=== PATIENT | female | born 1980 | race Caucasian/White ===

== ENCOUNTER 2016-08-17 12:19 | Emergency (ER) | payer MEDICAID ==
[~2016-08-17] VITALS: Ht 152.4 cm; Wt 52.0 kg
[~2016-08-17 12:19] MED LIST: ALPR0.5T3 PO; BUPR150CR PO; LAMO150 PO; LURA80 PO; TEMA30CA PO; ZOFR4TAB3 SL
[2016-08-17 12:27] VITALS: BP 145/89; PULSE 154; RESP 18; TEMP 99.9; O2SAT 97
[2016-08-17] MEDS ORDERED: ONDANSETRON HCL 4 MG/2 ML VIAL IVP ONE (13:00)
[2016-08-17] MEDS ORDERED: LORazepam 2 MG/ML VIAL IV PUSH ONE (13:00)
[2016-08-17] MEDS ORDERED: SODIUM CHLOR 0.9% 1000 ML INJ 1,000 ML IV ONE ×2 (13:00→14:30)
--- NOTE | 2016-08-17 13:09 | PD ---
HPI Chief Complaint: Abdominal Pain Time Seen by Provider: 12:30 Travel History International Travel<30 days: No Contact w/Intl Traveler<30days: No Traveled to known affect area: No History of Present Illness HPI The patient was seen and examined in the presence of the nurse. At no point in time was I in the room without the nurse present. This patient complains of lower abdominal pain. Duration 2 days. Symptoms are severe. Apparently right lower quadrant pain but also some on the left to a lesser degree. Occasionally she has vaginal discharge but nothing significant today. Denies fever or nausea or vomiting. She has irritable bowel syndrome and even understand what dose syndrome. She was feeling constipated and took an enema and then has had multiple bowel movements since. No abdominal surgeries. She is very tachycardic between 150- 170. She is extremely anxious. No alleviating factors , denies withdrawal of benzodiazepine which she takes 4-5 times daily PFSH Past Medical History Arthritis: Yes Asthma: Yes Bipolar Disorder: Yes Anxiety: Yes Depression: Yes Cancer: No Cardiovascular Problems: Yes (htn , states hx of tachacardia) Diabetes: No Diminished Hearing: No Endocrine: No Gastrointestinal Disorders: Yes (GASTROPARESIS) GERD: Yes (IBS) Genitourinary: No Headaches: Yes Hypertension: Yes (Orthostatic Hypertension per pt. recent HTN states takes no meds) Implanted Vascular Access Dvce: No Musculoskeletal: Yes Neurologic: Yes (GEOVANNI-DANLOS SYNDROME) Psychiatric: Yes Reproductive: No Respiratory: Yes Integumentary: Yes (CONNECTIVE TISSUE DISORDER) Migraines: Yes Seizures: Yes Tetanus Vaccination: > 5 Years Influenza Vaccination: No ?: Not LMP: 1 week sgo : 0 Para: 0 Miscarriage: 0 : 0 Past Surgical History Oral Surgery: Yes Other Surgery: Yes (SEE ED REPORT/MEDICAL RECORDS) Social History Alcohol Use: Yes (occas. wine) Tobacco Use: No Substance Use: No (states never) Allergies-Medications (Allergen,Severity, Reaction): Coded Allergies: Haldol (Verified Allergy, Severe, SPASMS, 08/17/16) Tramadol (Verified Allergy, Severe, HIVES, 08/17/16) Contrast Media (Verified Allergy, Mild, NAUSEA, 08/17/16) Ketamine (Verified Adverse Reaction, Mild, ANXIETY, 08/17/16) Reported Meds & Prescriptions Reported Meds & Active Scripts Active Zofran Odt (Ondansetron Odt) 4 Mg Tab 4 Mg SL Q6HR PRN Reported Temazepam 30 Mg Cap 30 Mg PO HS PRN Latuda (Lurasidone) 80 Mg Tab 100 Mg PO HS Lamictal (Lamotrigine) 150 Mg Tab 150 Mg PO BID Wellbutrin SR 12 HR (Bupropion HCl) 150 Mg Tab 300 Mg PO DAILY Alprazolam 0.5 Mg Tab 1 Mg PO QID PRN Review of Systems General / Constitutional: No: Fever Eyes: No: Visual changes HENT: No: Headaches Cardiovascular: Positive: Tachycardia, No: Chest Pain or Discomfort Respiratory: No: Shortness of Breath Gastrointestinal: Positive: Nausea, Abdominal Pain (this), Constipation Genitourinary: No: Dysuria Musculoskeletal: No: Pain Skin: No Rash Neurologic: No: Weakness Psychiatric: Positive: Anxiety, No: Depression Endocrine: No: Polydipsia Hematologic/Lymphatic: No: Easy Bruising Physical Exam Narrative GENERAL: Well-nourished, well-developed patient with abdominal pain and anxiety and tachycardia SKIN: Warm and dry. HEAD: Atraumatic. Normocephalic. EYES: Pupils equal and round. No scleral icterus. No injection or drainage. ENT: No nasal bleeding or discharge. Mucous membranes pink and moist. NECK: Trachea midline. No JVD. CARDIOVASCULAR: Regular rate and rhythm. No murmur appreciated. Tachycardic but regular RESPIRATORY: No accessory muscle use. Clear to auscultation. Breath sounds equal bilaterally. GASTROINTESTINAL: Abdomen soft, bilateral lower quadrant tenderness, nondistended. Hepatic and splenic margins not palpable. No rebound or guarding. MUSCULOSKELETAL: No obvious deformities. No clubbing. No cyanosis. No edema. NEUROLOGICAL: Awake and alert. No obvious cranial nerve deficits. Motor grossly within normal limits. Normal speech. PSYCHIATRIC: Extremely anxious mood and affect; insight and judgment normal. Pelvic: No cervical motion tenderness. No adnexal mass. Data Data Last Documented VS Vital Signs Date Time Temp Pulse Resp B/P Pulse Ox O2 Delivery O2 Flow Rate FiO2 08/17/16 14:25 130 16 109/77 97 Room Air 08/17/16 12:27 99.9 Orders Ondansetron Inj (Zofran Inj) (08/17/16 13:00) Sodium Chlor 0.9% 1000 Ml Inj (Ns 1000 M (08/17/16 13:00) Lorazepam Inj (Ativan Inj) (08/17/16 13:00) Complete Blood Count With Diff (08/17/16 12:52) Basic Metabolic Panel (Bmp) (08/17/16 12:52) Urinalysis - C+S If Indicated (08/17/16 12:52) Ed Urine Pregnancytest Poc (08/17/16 12:52) Electrocardiogram (08/17/16 ) Luggage Liner / Telemetry TIN.Q8H (08/17/16 12:52) Ct Abd/Pel W/O Iv Contrast (08/17/16 ) Urine Culture (08/17/16 13:10) Sodium Chlor 0.9% 1000 Ml Inj (Ns 1000 M (08/17/16 14:30) Labs Laboratory Tests Test 08/17/16 08/17/16 12:50 13:10 White Blood Count 3.2 TH/MM3 Red Blood Count 4.16 MIL/MM3 Hemoglobin 13.3 GM/DL Hematocrit 37.8 % Mean Corpuscular Volume 90.7 FL Mean Corpuscular Hemoglobin 32.0 PG Mean Corpuscular Hemoglobin 35.2 % Concent Red Cell Distribution Width 11.2 % Platelet Count 195 TH/MM3 Mean Platelet Volume 7.9 FL Neutrophils (%) (Auto) 91.7 % Lymphocytes (%) (Auto) 7.4 % Monocytes (%) (Auto) 0.7 % Eosinophils (%) (Auto) 0.1 % Basophils (%) (Auto) 0.1 % Neutrophils # (Auto) 3.0 TH/MM3 Lymphocytes # (Auto) 0.2 TH/MM3 Monocytes # (Auto) 0.0 TH/MM3 Eosinophils # (Auto) 0.0 TH/MM3 Basophils # (Auto) 0.0 TH/MM3 CBC Comment DIFF FINAL Differential Comment Sodium Level 137 MEQ/L Potassium Level 3.2 MEQ/L Chloride Level 103 MEQ/L Carbon Dioxide Level 22.0 MEQ/L Anion Gap 12 MEQ/L Blood Urea Nitrogen 9 MG/DL Creatinine 1.00 MG/DL Estimat Glomerular Filtration 63 ML/MIN Rate Random Glucose 124 MG/DL Calcium Level 8.8 MG/DL Urine Collection Type CLEAN CATCH Urine Color YELLOW Urine Turbidity SLIGHT Urine pH 6.0 Urine Specific [place] 1.021 Urine Protein TRACE mg/dL Urine Glucose (UA) NEG mg/dL Urine Ketones 80 OR GREATER mg/dL Urine Occult Blood MOD Urine Nitrite NEG Urine Bilirubin NEG Urine Leukocyte Esterase SMALL Urine RBC 10-14 /hpf Urine WBC 9-14 /hpf Urine Squamous Epithelial > 8 /hpf Cells Urine Bacteria MANY /hpf Microscopic Urinalysis Comment CULTURE INDICATED Urine Collection Time 13:10 [facility] Medical Decision Making Medical Screen Exam Complete: Yes Emergency Medical Condition: Yes Medical Record Reviewed: Yes Differential Diagnosis Ectopic , appendicitis, irritable bowel syndrome Narrative Course I have reviewed the patient's electronic medical record. Patient has had heart rates into the 130s before here but usually they're normal She does report history of be liters and low-dose as well as POTS syndrome which causes her frequent tachycardia that resolves and hours without treatment. Heart rate was initially running 170 is now at 1:30 I reviewed her EKG which shows sinus tachycardia at 1:30 Extended cardiac monitoring reveals sinus tachycardia without ectopy IV placed CBC is normal Metabolic profile shows hypokalemia with normal renal function Urinalysis shows a few contaminants will be cultured Urine is negative CT of abdomen and pelvis does not show anything emergent I gave her 1 L normal saline IV I gave her IV Zofran and IV Ativan On recheck she looks much better. Heart rate is come down from 170 to 130 She notes that she'll be tachycardic for a few hours and then will be back to normal This is very common finding for her and she does not want further evaluation for it. She would like to go home. She does look clinically better and we did not find anything emergent. I wrote her potassium replacement dose Advised her to return if she worsens Could be gastroparesis or irritable bowel syndrome causing abdominal pain which she has both chronically. She has sinus tachycardia but no other arrhythmia Diagnosis Primary Impression: Abdominal pain Qualified Code: R10.30 - Lower abdominal pain Additional Impressions: Tachycardia with greater than 160 beats per minute Hypokalemia Additional Instructions: The patient was advised to follow up with their physician and return if they worsen. Med/Other Pt SpecificInfo: Prescription(s) given Disposition: 01 DISCHARGE HOME Condition: Stable Ta Meadows MD Aug 17, 2016 13:09
[2016-08-17 13:23] LABS: BASOPHIL % 0.1 % (0.0-2.0); EOSINOPHIL % 0.1 % (0.0-4.0); HEMATOCRIT 37.8 % (35.0-46.0); LYMPH % 7.4 % (9.0-44.0); LYMPHOCYTE # 0.2 TH/MM3 (1.0-4.8); MEAN CELL VOLUME 90.7 FL (80.0-100.0); MEAN CORPUSCULAR HGB CONC 35.2 % (32.0-36.0); MONO % 0.7 % (0.0-8.0); NEUT % 91.7 % (16.0-70.0); PLATELET COUNT 195 TH/MM3 (150-450); RED BLOOD COUNT 4.16 MIL/MM3 (4.00-5.30); RED CELL DISTRIBUTION WIDTH 11.2 % (11.6-17.2); WHITE BLOOD COUNT 3.2 TH/MM3 (4.0-11.0)
[2016-08-17 13:23] LABS: GLUCOSE,URINE NEG (NEG); NITRITE,URINE NEG (NEG)
[2016-08-17 13:25] LABS: HEMO FLAGS DIFF FINAL
[2016-08-17 13:28] LABS: BLOOD, URINE MOD (NEG); KETONE, URINE 80 OR GREATER mg/dL (NEG)
[2016-08-17 13:29] LABS: METHOD OF COLLECTION CLEAN CATCH; URINE COLOR YELLOW (YELLW/STRAW)
[2016-08-17 13:30] LABS: BACTERIA, URINE MANY /hpf; SQUAMOUS EPITHELIAL CELL URINE > 8 /hpf (0-5)
[2016-08-17 13:30] LABS: POTASSIUM 3.2 MEQ/L (3.5-5.1)
[2016-08-17 13:31] LABS: COMMENT (UR) CULTURE INDICATED; CULTURE IF INDICATED CULTURE INDICATED
--- NOTE | 2016-08-17 14:08 | RADHPO ---
EXAM DATE/TIME: 08/17/2016 13:39 [facility] COMPARISON: CT CERVICAL SPINE W/O CONTRAST, June 29, 2016, 18:37. INDICATIONS : Right lower quadrant pain, nausea and vomiting x 2 days. ORAL CONTRAST: No oral contrast ingested. RADIATION DOSE: 5.36 CTDIvol (mGy) MEDICAL HISTORY : Irritiable bowel syndrome. Hypertension. Asthma. SURGICAL HISTORY : None. ENCOUNTER: Initial ACUITY: 2 days PAIN SCALE: 7/10 LOCATION: Right lower quadrant TECHNIQUE: Volumetric scanning of the abdomen and pelvis was performed. Using automated exposure control and ad justment of the mA and/or kV according to patient size, radiation dose was kept as low as reasonably achievable to obtain optimal diagnostic quality images. FINDINGS: The limited portion of the lung base visualized is clear. The appearance of the liver, spleen, pancreas, adrenal glands and kidneys is within normal limits. The abdominal aorta is normal in caliber. There is no retroperitoneal lymphadenopathy. No free intraperitoneal air is seen. No free fluid is identified. The visualized loops of small and l arge bowel are unremarkable by noncontrast CT imaging. No inflammatory changes are seen in the right lower quadrant. There some minimal free fluid within the pelvis. Note is made of an IUD within the uterine cavity. No iliac or inguinal adenopathy is present. The visualized bony structures demonstrate degenerative changes right are otherwise intact. CONCLUSION: 1. Negative CT scan of the abdomen and pelvis. 2. The appendix is not definitively visualized however, no inflammatory changes are seen within the r ight lower quadrant. If symptoms persist, repeat examination with IV and oral contrast could be perfo rmed. Connor Loving MD on August 17, 2016 at 13:54 Board Certified Radiologist. This report was verified electronically.
[2016-08-17 14:25] VITALS: BP 109/77; PULSE 130; RESP 16; O2SAT 97
[2016-08-17] MEDS ORDERED: POTA1TAB4 PO (15:18)
[2016-08-17] MEDS ORDERED: ZOFR4TAB3 SL (15:18)
--- NOTE | 2016-08-18 15:31 | EKG ---
Date Performed: 08/17/2016 Time Performed: 13:08:42 PTAGE: 36 years EKG: Sinus tachycardia Short HI interval Extensive ST-T changes are abnormal Compared to previou s tracing, HR is faster, and the ST-T changes are more prominent. Abnormal ECG PREVIOUS TRACING : 03/29/2014 08.50 DOCTOR: Bryon Leos Interpretating Date/Time 08/18/2016 15:29:32
== END 2016-08-17 15:45 | disposition home or self-care (01) ==
LOC: PHED 12:19
DX: R10.30 Lower abdominal pain, unspecified (principal); E87.6 Hypokalemia; R00.0 Tachycardia, unspecified; R82.71 Bacteriuria; K58.9 Irritable bowel syndrome, unspecified
CPT/HCPCS: 74176; 80048; 81001; 84703; 85025; 87086; 93005; 96361; 96374; 96375; 99284; J2060; J2405; J7030

== ENCOUNTER 2016-08-20 18:33 | Inpatient (IN) | payer MEDICAID ==
[~2016-08-20] VITALS: Ht 152.4 cm; Wt 71.1 kg
[~2016-08-20 18:33] MED LIST changes: +POTA1TAB4 PO
[2016-08-20 18:45] VITALS: BP 153/107; PULSE 106; RESP 18; TEMP 98.4; O2SAT 99
[2016-08-20] MEDS ORDERED: SODIUM CHLOR 0.9% 1000 ML INJ 1,000 ML IV SCH (18:50)
--- NOTE | 2016-08-20 18:53 | PD ---
HPI Chief Complaint: GI Complaint Time Seen by Provider: 18:39 Travel History International Travel<30 days: No Contact w/Intl Traveler<30days: No Traveled to known affect area: No History of Present Illness HPI 36-year-old female with history of bipolar disorder, gastroparesis, IBS, BANEGAS, here for evaluation of 5 days of nausea, vomiting, diarrhea, and abdominal pain. The patient was seen in the emergency department 3 days ago for the same , had an unremarkable noncontrast CT abdomen pelvis, was treated and discharged from the emergency department. Patient reports that her symptoms have not improved. She has lower abdominal pain is described as cramping/pressure, moderate, constant, worse with movements. Emesis and bowel movements are nonbloody. She did note some vaginal spotting this morning and states that she has an IUD. No other vaginal discharge. No urinary symptoms. No fevers. She received 4 mg of IV Zofran by EMS with some improvement in nausea. PFSH Past Medical History Arthritis: Yes Asthma: Yes Bipolar Disorder: Yes Anxiety: Yes Depression: Yes Cancer: No Cardiovascular Problems: Yes (htn , states hx of tachacardia) Diabetes: No Diminished Hearing: No Endocrine: No Gastrointestinal Disorders: Yes (GASTROPARESIS) GERD: Yes (IBS) Genitourinary: No Headaches: Yes Hypertension: Yes (Orthostatic Hypertension per pt. recent HTN states takes no meds) Implanted Vascular Access Dvce: No Musculoskeletal: Yes Neurologic: Yes (GEOVANNI-DANLOS SYNDROME) Psychiatric: Yes Reproductive: No Respiratory: Yes Integumentary: Yes (CONNECTIVE TISSUE DISORDER) Migraines: Yes Seizures: Yes ?: Not : 0 Para: 0 Miscarriage: 0 : 0 Past Surgical History Oral Surgery: Yes Other Surgery: Yes (SEE ED REPORT/MEDICAL RECORDS) Social History Alcohol Use: Yes (occas. wine) Tobacco Use: No Substance Use: No (states never) Allergies-Medications (Allergen,Severity, Reaction): Coded Allergies: Haldol (Verified Allergy, Severe, SPASMS, 08/17/16) Tramadol (Verified Allergy, Severe, HIVES, 08/17/16) Contrast Media (Verified Allergy, Mild, NAUSEA, 08/17/16) Ketamine (Verified Adverse Reaction, Mild, ANXIETY, 08/17/16) Reported Meds & Prescriptions Reported Meds & Active Scripts Active K-Tab (Potassium Chloride) 20 Meq Tab 60 Meq PO ONCE Zofran Odt (Ondansetron Odt) 4 Mg Tab 4 Mg SL Q6HR PRN Reported Temazepam 30 Mg Cap 30 Mg PO HS PRN Latuda (Lurasidone) 80 Mg Tab 100 Mg PO HS Lamictal (Lamotrigine) 150 Mg Tab 150 Mg PO BID Wellbutrin SR 12 HR (Bupropion HCl) 150 Mg Tab 300 Mg PO DAILY Alprazolam 0.5 Mg Tab 1 Mg PO QID PRN Review of Systems Except as stated in HPI: all other systems reviewed are Neg Physical Exam Narrative GENERAL: Well-developed, well-nourished, comfortable, no acute distress. SKIN: Warm and dry. HEAD: Atraumatic. Normocephalic. EYES: Pupils equal and round. No scleral icterus. No injection or drainage. ENT: Mucous membranes pink and moist. NECK: Trachea midline. No JVD. CARDIOVASCULAR: Tachycardic, rate 107, regular. RESPIRATORY: No accessory muscle use. Clear to auscultation. Breath sounds equal bilaterally. GASTROINTESTINAL: Abdomen soft, moderate diffuse tenderness with mild distention , no peritoneal signs, normal bowel sounds. MUSCULOSKELETAL: No obvious deformities. No clubbing. No cyanosis. No edema. NEUROLOGICAL: Awake and alert. No obvious cranial nerve deficits. Motor grossly within normal limits. Normal speech. PSYCHIATRIC: Appropriate mood and affect; insight and judgment normal. Data Data Last Documented VS Vital Signs Date Time Temp Pulse Resp B/P Pulse Ox O2 Delivery O2 Flow Rate FiO2 08/20/16 23:01 16 08/20/16 22:58 98.1 102 152/104 99 Room Air Orders Beta Hcg (Quant/Titer) (08/20/16 18:50) Complete Blood Count With Diff (08/20/16 18:50) Comprehensive Metabolic Panel (08/20/16 18:50) Lipase (08/20/16 18:50) Prothrombin Time / Inr (Pt) (08/20/16 18:50) Act Partial Throm Time (Ptt) (08/20/16 18:50) Urinalysis - C+S If Indicated (08/20/16 18:50) Ct Abd/Pel W/O Iv Contrast (08/20/16 18:50) Iv Access Insert/Monitor (08/20/16 18:50) Ecg Monitoring (08/20/16 18:50) Oximetry (08/20/16 18:50) Morphine Inj (Morphine Inj) (08/20/16 19:00) Sodium Chlor 0.9% 1000 Ml Inj (Ns 1000 M (08/20/16 18:50) Sodium Chloride 0.9% Flush (Ns Flush) (08/20/16 19:00) Metoclopramide Inj (Reglan Inj) (08/20/16 19:00) Influenzae A/B Antigen (08/20/16 18:55) Oral Contrast - Adult (08/20/16 19:05) Lorazepam Inj (Ativan Inj) (08/20/16 19:30) Diatrizoate Liq ( Gastroview Liq) (08/20/16 19:25) Potassium Chloride (Kcl) (08/20/16 20:15) Potassium Chlor 20 Meq Premix (Kcl 20 Me (08/20/16 20:15) Potassium Chlor 20 Meq Premix (Kcl 20 Me (08/20/16 20:15) Insert Ng Tube (08/20/16 21:37) Ondansetron Inj (Zofran Inj) (08/20/16 22:00) Chest, Single Ap (08/20/16 ) Piperacil-Tazo 3.375 Gm Premix (Zosyn 3. (08/20/16 22:15) Morphine Inj (Morphine Inj) (08/20/16 22:15) Admit Order (Ed Use Only) (08/20/16 23:32) Labs Laboratory Tests Test 08/20/16 19:29 White Blood Count 7.8 TH/MM3 Red Blood Count 3.76 MIL/MM3 Hemoglobin 11.8 GM/DL Hematocrit 34.0 % Mean Corpuscular Volume 90.3 FL Mean Corpuscular Hemoglobin 31.5 PG Mean Corpuscular Hemoglobin 34.9 % Concent Red Cell Distribution Width 11.6 % Platelet Count 217 TH/MM3 Mean Platelet Volume 8.2 FL Neutrophils (%) (Auto) 82.5 % Lymphocytes (%) (Auto) 6.4 % Monocytes (%) (Auto) 10.6 % Eosinophils (%) (Auto) 0.3 % Basophils (%) (Auto) 0.2 % Neutrophils # (Auto) 6.5 TH/MM3 Lymphocytes # (Auto) 0.5 TH/MM3 Monocytes # (Auto) 0.8 TH/MM3 Eosinophils # (Auto) 0.0 TH/MM3 Basophils # (Auto) 0.0 TH/MM3 CBC Comment AUTO DIFF Differential Comment AUTO DIFF CONFIRMED Dohle Bodies PRESENT Platelet Estimate NORMAL Platelet Morphology Comment NORMAL Red Cell Morphology Comment Prothrombin Time 10.8 SEC Prothromb Time International 1.0 RATIO Ratio Activated Partial 27.6 SEC Thromboplast Time Sodium Level 137 MEQ/L Potassium Level 2.6 MEQ/L Chloride Level 100 MEQ/L Carbon Dioxide Level 23.4 MEQ/L Anion Gap 14 MEQ/L Blood Urea Nitrogen 8 MG/DL Creatinine 0.47 MG/DL Estimat Glomerular Filtration 150 ML/MIN Rate Random Glucose 84 MG/DL Calcium Level 8.4 MG/DL Total Bilirubin 0.5 MG/DL Aspartate Amino Transf 38 U/L (AST/SGOT) Alanine Aminotransferase 73 U/L (ALT/SGPT) Alkaline Phosphatase 116 U/L Total Protein 6.6 GM/DL Albumin 2.7 GM/DL Lipase 88 U/L Human Chorionic Gonadotropin, LESS THAN 1 Quant MIU/ML [facility] Medical Decision Making Medical Screen Exam Complete: Yes Emergency Medical Condition: Yes Medical Record Reviewed: Yes Differential Diagnosis Appendicitis, colitis, diverticulitis, gastroenteritis, peptic ulcer disease, hepatobiliary disease, pancreatitis, IBS Narrative Course Initial vital signs show heart rate 106, blood pressure 153/107, pulse ox 99% on room air, oral temp of 98.4F. Patient takes Xanax daily, however because of vomiting last 3 days has not been able to take his medication. She is requesting something for anxiety. CBC shows WBC 7.8, hemoglobin 11.8, hematocrit 34, platelets 217, neutrophils 82.5%. CMP is remarkable for potassium 2.6, AST 38, ALT 73, albumin 2.7, otherwise unremarkable. Beta hCG is negative. Influenza is negative. When the patient presented to the emergency department 3 days ago she had slight hypokalemia with a potassium of 3.2 which was replaced orally. Today because she is unable to tolerate by mouth, parenteral potassium was ordered. CT abdomen pelvis: CONCLUSION: Ileus versus obstruction has developed, favor the former, and potentially on the basis of acute appendicitis in the proper clinical setting. NG tube placed and call placed to Gen. surgery after CT abdomen pelvis resulted. The patient was made aware of CT findings. Upon reassessment the patient is still complaining of abdominal pain. She is even more distended than when she initially presented and has moderate diffuse abdominal tenderness. 10:15 PM: Case discussed with on-call surgical attending Dr. Padilla. He believes that appendicitis is less likely. He is however requesting IV antibiotics and agrees with NG tube placement. He is requesting admission to the medical service to the [facility] where he will see the patient in consultation. 11:30 PM: Case discussed with hospitalist Dr. Caballero who will admit the patient to her service to the [facility]. The patient was made aware of all findings and plan for admission. Diagnosis Primary Impression: Abdominal pain Qualified Code: R10.84 - Generalized abdominal pain Additional Impressions: Ileus Hypokalemia Admitting Information Admitting Physician Requests: Admit López Amado MD Aug 20, 2016 18:53
[2016-08-20] MEDS ORDERED: MORPHINE SULFATE 4 MG/ML INJ IV PUSH ONE ×2 (19:00→22:15)
[2016-08-20] MEDS ORDERED: SODIUM CHLORIDE 0.9% FLUSH 5 ML FLUSH IVF PRN (19:00)
[2016-08-20] MEDS ORDERED: METOCLOPRAMIDE HCL 10 MG/2 ML VIAL IV PUSH ONE (19:00)
[2016-08-20 19:20] VITALS: O2SAT 98
[2016-08-20] MEDS ORDERED: DIATRIZOATE MEGLUM/DIATRIZOATE SOD 9 ML CUP ONE (19:25)
[2016-08-20] MEDS ORDERED: LORazepam 2 MG/ML VIAL IV PUSH ONE (19:30)
[2016-08-20 19:33] VITALS: BP 148/88; PULSE 103; RESP 16; TEMP 98.7; O2SAT 98
[2016-08-20 19:45] LABS: AUTOMATED NEUTROPHIL # 6.5 TH/MM3 (1.8-7.7); BASOPHIL % 0.2 % (0.0-2.0); EOSINOPHIL % 0.3 % (0.0-4.0); LYMPH % 6.4 % (9.0-44.0); LYMPHOCYTE # 0.5 TH/MM3 (1.0-4.8); MEAN CELL VOLUME 90.3 FL (80.0-100.0); MEAN CORPUSCULAR HEMOGLOBIN 31.5 PG (27.0-34.0); MEAN CORPUSCULAR HGB CONC 34.9 % (32.0-36.0); MONO % 10.6 % (0.0-8.0); NEUT % 82.5 % (16.0-70.0); PLATELET COUNT 217 TH/MM3 (150-450); RED BLOOD COUNT 3.76 MIL/MM3 (4.00-5.30); RED CELL DISTRIBUTION WIDTH 11.6 % (11.6-17.2); WHITE BLOOD COUNT 7.8 TH/MM3 (4.0-11.0)
[2016-08-20 19:48] LABS: APTT (PATIENT) 27.6 SEC (24.3-30.1); PROTHROMBIN TIME - PATIENT 10.8 SEC (9.8-11.6)
[2016-08-20 19:50] LABS: HEMO FLAGS AUTO DIFF
[2016-08-20 20:05] LABS: ALKALINE PHOSPHATASE 116 U/L (45-117); ALT (GPT) 73 U/L (10-53); ANION GAP 14 MEQ/L (5-15); AST (GOT) 38 U/L (15-37); BETA HCG QUANT LESS THAN 1 MIU/ML (0-5); BICARBONATE 23.4 MEQ/L (21.0-32.0); BLOOD UREA NITROGEN 8 MG/DL (7-18); CHLORIDE 100 MEQ/L (98-107); GLOMERULAR FILTRATION RATE 150 ML/MIN (>89); SODIUM (NA) 137 MEQ/L (136-145); TOTAL BILIRUBIN ADULT 0.5 MG/DL (0.2-1.0)
[2016-08-20 20:06] LABS: POTASSIUM 2.6 MEQ/L (3.5-5.1)
[2016-08-20] MEDS ORDERED: POTASSIUM CHLOR 20 MEQ PREMIX 100 ML IV ONE (20:15)
[2016-08-20] MEDS ORDERED: POTASSIUM CHLORIDE 20 MEQ CONTROLLED RELEASE TAB PO ONE (20:15)
[2016-08-20 20:46] LABS: DOHLE BODIES PRESENT (NONE SEEN); PLATELET ESTIMATE SMEAR NORMAL (NORMAL); PLATELET MORPHOLOGY NORMAL (NORMAL); SCAN/DIFF AUTO DIFF CONFIRMED
--- NOTE | 2016-08-20 21:30 | RADHPO ---
EXAM DATE/TIME: 08/20/2016 20:31 [facility] COMPARISON: No previous studies available for comparison. INDICATIONS : Abdomen pain, distention. ORAL CONTRAST: Partial prescribed oral contrast ingested. RADIATION DOSE: 5.15 CTDIvol (mGy) MEDICAL HISTORY : Asthma SURGICAL HISTORY : None. ENCOUNTER: Initial ACUITY: 2 days PAIN SCALE: 3/10 LOCATION: abdomen TECHNIQUE: Volumetric scanning of the abdomen and pelvis was performed. Using automated exposure control and ad justment of the mA and/or kV according to patient size, radiation dose was kept as low as reasonably achievable to obtain optimal diagnostic quality images. FINDINGS: Small bowel has become distended, fairly generalized and especially the jejunum. A don't see an abrup t caliber change but the jejunum is much more distended than the ileum. There is upper limits of norm al caliber right-sided colon. What is thought to be the appendix is seen on series 2 image 64 and mil dly thickened. No solid organ abnormality demonstrated. There is small diffuse free fluid. CONCLUSION: Ileus versus obstruction has developed, favor the former, and potentially on the basis of acute appen dicitis in the proper clinical setting. Fei Gregorio MD on August 20, 2016 at 21:23 Board Certified Radiologist. This report was verified electronically.
[2016-08-20] MEDS ORDERED: ONDANSETRON HCL 4 MG/2 ML VIAL IV PUSH ONE (22:00)
[2016-08-20] MEDS ORDERED: PIPERACIL-TAZO 3.375 GM PREMIX 50 ML IV ONE (22:15)
[2016-08-20] MEDS: POTASSIUM CHLOR 20 MEQ PREMIX 100 ML IV SCH ×2 (22:15→22:55)
[2016-08-20 22:58] VITALS: BP 152/104; PULSE 102; RESP 16; TEMP 98.1; O2SAT 99
--- NOTE | 2016-08-20 22:59 | RADHPO ---
EXAM DATE/TIME: 08/20/2016 22:47 [facility] COMPARISON: No previous studies available for comparison. INDICATIONS : Post NG Tube placement. MEDICAL HISTORY : Hypertension. Asthma SURGICAL HISTORY : None. ENCOUNTER: Initial ACUITY: 1 day PAIN SCORE: 0/10 LOCATION: Bilateral chest FINDINGS: Nasogastric tube is been placed. Tip is in the stomach, sidehole near the GE junction. Stomach is dec ompressed. There is moderately distended proximal small bowel. I don't see any free air. CONCLUSION: NG tube tip is in the upper stomach, sidehole near the GE junction. Distended small bowel. Decompress ed stomach. Fei Gregorio MD on August 20, 2016 at 22:56 Board Certified Radiologist. This report was verified electronically.
[2016-08-21] VITALS (7 sets, daily range): BP systolic 131–159; BP diastolic 91–97; PULSE 101–121; RESP 16–20; TEMP 97.8–99.1; O2SAT 95–99
[2016-08-21] MEDS ORDERED: ONDANSETRON HCL 4 MG/2 ML VIAL IV PUSH ONE (00:30)
[2016-08-21] MEDS ORDERED: NALOXONE HCL 0.4 MG/ML AMP IV PRN (01:00)
[2016-08-21] MEDS ORDERED: DEXT 5%-NACL 0.45% 1000 ML INJ 1,000 ML IV SCH (01:00)
[2016-08-21 01:41] LABS: MAGNESIUM 2.4 MG/DL (1.5-2.5)
[2016-08-21] MEDS: NS + KCL 40 MEQ INJ 1,000 ML IV SCH ×3 (02:01→22:42)
[2016-08-21] MEDS: MORPHINE SULFATE 4 MG/ML INJ IV PUSH PRN ×7 (02:02→22:54)
[2016-08-21] MEDS: ONDANSETRON HCL 4 MG/2 ML VIAL IVP PRN ×4 (02:02→22:53)
[2016-08-21] MEDS ORDERED: PHENOL 1.4% SOLN 180 ML BTL OROPHARYNG ONE (02:45)
[2016-08-21] MEDS: LORazepam 2 MG/ML VIAL IV PUSH PRN ×5 (03:07→22:29)
--- NOTE | 2016-08-21 04:53 | HHI.HP ---
[facility] Kirk Yan Admission Diagnosis abdominal pain, ileus, hypokalemia Diagnoses: Chief Complaint: Nausea, vomiting, diarrhea Travel History International Travel<30 Days: No Contact w/Intl Traveler <30 Da: No Traveled to Known Affected Are: No History of Present Illness History patient, ER physician communication, and review of medical records. Patient reported that for the past 1 week, she has been having abdominal pain with associated nausea, vomiting, diarrhea. She did come into the emergency room about 48 hours into her symptoms and she has had CT abdomen and pelvis done with oral contrast which did not reveal any acute pathology appendix was not fully evaluated due to lack of IV contrast as patient has contrast allergy. Patient states that she was told to discharge home with pain control, nausea control and hydration. However she was not improving at home subsequently and spine now she has been vomiting about 25 times a day, having diarrhea about 10 times a day. She denies any blood in her stool or in her vomitus. She states that her vomitus is greenish in color. Denies fevers. She then presented back to [place] emergency room today and was time for CT imaging studies now revealed significant ileus without bowel obstruction. Again appendix was not fully evaluated as per radiology reading. Patient was transferred to the main hospital her general surgery request for further evaluation. 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 She has had gastroparesis for many years. 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 She denies using any pain medications at home. Denies having had any abdominal surgeries. In the emergency room, patient's NG tube output was quite high at around 500 cc. By the time of my arrival, patient has per second canister with greenish bile fullabout another 500 cc. Apart from the above, patient denies any fevers/chest pain/palpitations/ shortness of breath/focal weakness. Denies any dizziness/syncopal episodes. Denies any burning urination or pain on urination. 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 Denies any alcohol abuse or drug abuse. Physical Exam Vital Signs Vital Signs Date Time Temp Pulse Resp B/P Pulse Ox O2 Delivery O2 Flow Rate FiO2 08/21/16 04:08 98.5 114 20 142/92 99 08/21/16 01:01 99.1 121 20 155/97 98 08/21/16 00:37 101 16 159/93 99 Room Air 08/21/16 00:12 Room Air 08/20/16 23:01 16 08/20/16 22:58 16 08/20/16 22:58 98.1 102 16 152/104 99 Room Air 08/20/16 19:33 98.7 103 16 148/88 98 Room Air 08/20/16 19:33 16 08/20/16 19:20 98 Room Air 08/20/16 18:45 98.4 106 18 153/107 99 Physical Exam GENERAL: This is a well-nourished, well-developed patient, in no apparent distress. SKIN: No rashes, ecchymoses or lesions. Cool and dry. HEAD: Atraumatic. Normocephalic. No temporal or scalp tenderness. EYES: No scleral icterus. No injection or drainage. ENT: Nose without bleeding, purulent drainage or septal hematoma. Airway patent. NECK: Trachea midline. No JVD CARDIOVASCULAR: Regular rate and rhythm without murmurs, gallops, or rubs. RESPIRATORY: Clear to auscultation. Breath sounds equal bilaterally. No wheezes , rales, or rhonchi. GASTROINTESTINAL: Abdomen soft, non-tender, nondistended.No guarding. NG tube in place, has greenish bile in canister about 500cc MUSCULOSKELETAL: Extremities without clubbing, cyanosis, or edema. . No calf tenderness. NEUROLOGICAL: Awake and alert. Motor and sensory grossly within normal limits.. Normal speech. Laboratory Laboratory Tests Test 08/20/16 19:29 White Blood Count 7.8 Red Blood Count 3.76 Hemoglobin 11.8 Hematocrit 34.0 Mean Corpuscular Volume 90.3 Mean Corpuscular Hemoglobin 31.5 Mean Corpuscular Hemoglobin 34.9 Concent Red Cell Distribution Width 11.6 Platelet Count 217 Mean Platelet Volume 8.2 Neutrophils (%) (Auto) 82.5 Lymphocytes (%) (Auto) 6.4 Monocytes (%) (Auto) 10.6 Eosinophils (%) (Auto) 0.3 Basophils (%) (Auto) 0.2 Neutrophils # (Auto) 6.5 Lymphocytes # (Auto) 0.5 Monocytes # (Auto) 0.8 Eosinophils # (Auto) 0.0 Basophils # (Auto) 0.0 CBC Comment AUTO DIFF Differential Comment AUTO DIFF CONFIRMED Dohle Bodies PRESENT Platelet Estimate NORMAL Platelet Morphology Comment NORMAL Red Cell Morphology Comment Prothrombin Time 10.8 Prothromb Time International 1.0 Ratio Activated Partial 27.6 Thromboplast Time Sodium Level 137 Potassium Level 2.6 Chloride Level 100 Carbon Dioxide Level 23.4 Anion Gap 14 Blood Urea Nitrogen 8 Creatinine 0.47 Estimat Glomerular Filtration 150 Rate Random Glucose 84 Calcium Level 8.4 Magnesium Level 2.4 Total Bilirubin 0.5 Aspartate Amino Transf 38 (AST/SGOT) Alanine Aminotransferase 73 (ALT/SGPT) Alkaline Phosphatase 116 Total Protein 6.6 Albumin 2.7 Lipase 88 Human Chorionic Gonadotropin, LESS THAN 1 Quant Date/Time Procedure Status Source Growth 08/20/16 19:18 Influenza Types A,B Antigen (EZIO) - Final Complete Nasal Washing NEGATIVE FOR FLU A AND B ANTIGEN.... Result Diagram: 08/20/16192808/20/161928 Imaging Last 48 hours Impressions Abdomen/Pelvis CT 08/20/16 1850 Signed Impressions: Service Date/Time: Saturday, August 20, 2016 20:31 - CONCLUSION: Ileus versus obstruction has developed, favor the former, and potentially on the basis of acute appendicitis in the proper clinical setting. Fei Gregorio MD Chest X-Ray 08/20/16 0000 Signed Impressions: Service Date/Time: Saturday, August 20, 2016 22:47 - CONCLUSION: NG tube tip is in the upper stomach, sidehole near the GE junction. Distended small bowel. Decompressed stomach. 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 Nothing by mouth. Patient received 60 mEq of potassium IV in ER. IV hydration with normal saline with 40 mEq of KCl at 1 25 cc per hour. We'll repeat labs in a.m. Check magnesium. Pain control. Zosyn 4.5 g IV every 6 hours. We'll follow general surgery recommendations. Resume patient's home medications. Patient is on anxiety medications and will resume them in the form of Ativan IV as needed since she is nothing by mouth. DVT prophylaxiswith SCD. GI prophylaxison pantoprazole. Discussed Condition With Patient, ER physician, patient's nurse Physician Certification 2 Midnight Certification Type: Admission for Inpatient Services Order for Inpatient Services The services are ordered in accordance with Medicare regulations or non- Medicare payer requirements, as applicable. In the case of services not specified as inpatient-only, they are appropriately provided as inpatient services in accordance with the 2-midnight benchmark. Estimated LOS (days): 3 days is the estimated time the patient will need to remain in the hospital, assuming treatment plan goals are met and no additional complications. Post-Hospital Plan: Home Problem Qualifiers (1) Abdominal pain: Qualified Code: R10.84 - Generalized abdominal pain Joce Caballero MD Aug 21, 2016 04:53
[2016-08-21] MEDS: PIPERACIL-TAZO 4.5 GM PREMIX 100 ML IV SCH ×3 (05:43→18:43)
[2016-08-21] MEDS: SODIUM CHLORIDE 0.9% FLUSH 5 ML FLUSH FLUSH SCH ×2 (07:57→21:00)
[2016-08-21 08:31] LABS: BASOPHIL % 0.2 % (0.0-2.0); EOSINOPHIL # 0.1 TH/MM3 (0-0.4); EOSINOPHIL % 1.2 % (0.0-4.0); HEMATOCRIT 30.6 % (35.0-46.0); HEMO FLAGS DIFF FINAL; LYMPH % 19.2 % (9.0-44.0); LYMPHOCYTE # 1.2 TH/MM3 (1.0-4.8); MEAN CELL VOLUME 89.9 FL (80.0-100.0); MEAN CORPUSCULAR HEMOGLOBIN 30.9 PG (27.0-34.0); MEAN CORPUSCULAR HGB CONC 34.4 % (32.0-36.0); MONO % 14.9 % (0.0-8.0); NEUT % 64.5 % (16.0-70.0); PLATELET COUNT 214 TH/MM3 (150-450); RED BLOOD COUNT 3.41 MIL/MM3 (4.00-5.30); WHITE BLOOD COUNT 6.2 TH/MM3 (4.0-11.0)
[2016-08-21] MEDS: PANTOPRAZOLE SODIUM 40 MG VIAL IV PUSH SCH (08:41)
[2016-08-21 08:47] LABS: BICARBONATE 24.1 MEQ/L (21.0-32.0); MAGNESIUM 2.1 MG/DL (1.5-2.5)
[2016-08-21] MEDS: buPROPion HCL 150 MG SUSTAINED RELEASE TAB PO SCH (08:53)
[2016-08-21] MEDS: lamoTRIgine 100 MG TAB PO SCH ×2 (08:53→21:00)
[2016-08-21] MEDS ORDERED: POTASSIUM CHLOR 20 MEQ PREMIX 100 ML IV ONE (11:15)
--- NOTE | 2016-08-21 11:18 | HHI.PR ---
Subjective Remarks f/u; ileus NG tube in place. abdominal pain and nausea is better. Objective Vitals Vital Signs Date Time Temp Pulse Resp B/P Pulse Ox O2 Delivery O2 Flow Rate FiO2 08/21/16 08:10 98.6 108 18 137/94 96 08/21/16 04:08 98.5 114 20 142/92 99 08/21/16 01:01 99.1 121 20 155/97 98 08/21/16 00:37 101 16 159/93 99 Room Air 08/21/16 00:12 Room Air 08/20/16 23:01 16 08/20/16 22:58 16 08/20/16 22:58 98.1 102 16 152/104 99 Room Air 08/20/16 19:33 98.7 103 16 148/88 98 Room Air 08/20/16 19:33 16 08/20/16 19:20 98 Room Air 08/20/16 18:45 98.4 106 18 153/107 99 I/O 08/20/16 08/20/16 08/20/16 08/21/16 08/21/16 08/21/16 06:59 14:59 22:59 06:59 14:59 22:59 Intake Total 1100 ml 547 ml Output Total 1050 ml Balance 1100 ml -503 ml Intake IV Total 1100 ml 547 ml Output Gastric Drainage Total 1050 ml # Voids 1 # Bowel Movements 0 Result Diagram: 08/21/16 0821 08/21/16 0821 Imaging Last Impressions Abdomen/Pelvis CT 08/20/16 1850 Signed Impressions: Service Date/Time: Saturday, August 20, 2016 20:31 - CONCLUSION: Ileus versus obstruction has developed, favor the former, and potentially on the basis of acute appendicitis in the proper clinical setting. Fei Gregorio MD Chest X-Ray 08/20/16 0000 Signed Impressions: Service Date/Time: Saturday, August 20, 2016 22:47 - CONCLUSION: NG tube tip is in the upper stomach, sidehole near the GE junction. Distended small bowel. Decompressed stomach. Fei Gregorio MD Objective Remarks GENERAL: This is a well-nourished, well-developed patient, in no apparent distress with NG tube in place. CARDIOVASCULAR: Regular rate and regular rhythm without murmurs, gallops, or rubs. RESPIRATORY: Clear to auscultation. Breath sounds equal bilaterally. No wheezes , rales, or rhonchi. GASTROINTESTINAL: Abdomen soft, non-tender, nondistended. Normal, active bowel sounds MUSCULOSKELETAL: Extremities without clubbing, cyanosis, or edema. NEURO: Alert & Oriented x4 to person, place, time, situation. Moves all ext x4 Medications and IVs Current Medications Morphine Sulfate 4 mg 4 mg ONCE ONCE IV PUSH ; Start 08/20/16 at 19:00; Stop at 19:21; Status DC Sodium Chloride (NS 1000 ml Inj) 1,000 ml @ 1,000 mls/hr Q1H IV Last administered on 08/20/16 19:28; Start 08/20/16 at 18:50; Stop 08/20/16 at 19:49 ; Status DC IV Flush (NS Flush) 2 ml UNSCH PRN IVF FLUSH AFTER USING IV ACCESS; Start 08/20 at 19:00; Stop 08/21/16 at 01:02; Status DC Metoclopramide HCl (Reglan Inj) 10 mg ONCE ONCE IV PUSH Last administered on 19:29; Start 08/20/16 at 19:00; Stop 08/20/16 at 19:01; Status DC Lorazepam (Ativan Inj) 1 mg ONCE ONCE IV PUSH Last administered on 08/20/16 19:30; Start 08/20/16 at 19:30; Stop 08/20/16 at 19:31; Status DC Diatrizoate Meglum/ Diatrizoate Sod ( Gastroview Liq) 18 ml STK-MED ONCE .ROUTE Last administered on 08/20/16 19:32; Start 08/20/16 at 19:25; Stop at 19:26; Status DC Potassium Chloride 60 meq 60 meq ONCE ONCE PO ; Start 08/20/16 at 20:15; Stop 08/20/16 at 20:16; Status DC Potassium Chloride 100 ml @ 50 mls/hr ONCE ONCE IV Last administered on 20:42; Start 08/20/16 at 20:15; Stop 08/20/16 at 22:14; Status DC Potassium Chloride (KCl 20 Meq Premix Inj) 100 ml @ 50 mls/hr Q2H IV Last administered on 08/20/16 22:55; Start 08/20/16 at 20:15; Stop 08/21/16 at 00:14 ; Status DC Ondansetron HCl 4 mg 4 mg ONCE ONCE IV PUSH Last administered on 08/20/16 21: 58; Start 08/20/16 at 22:00; Stop 08/20/16 at 22:01; Status DC Piperacillin Sod/ Tazobactam Sod (Zosyn 3.375 Gm Premix) 50 ml @ 100 mls/hr ONCE ONCE IV Last administered on 08/20/16 22:54; Start 08/20/16 at 22:15; Stop 08/20/16 at 22:44; Status DC Morphine Sulfate (Morphine Inj) 4 mg ONCE ONCE IV PUSH Last administered on 22:15; Start 08/20/16 at 22:15; Stop 08/20/16 at 22:16; Status DC Ondansetron HCl (Zofran Inj) 4 mg ONCE ONCE IV PUSH Last administered on 00:35; Start 08/21/16 at 00:30; Stop 08/21/16 at 00:31; Status DC IV Flush (NS Flush) 2 ml UNSCH PRN FLUSH FLUSH AFTER USING IV ACCESS; Start at 01:00 IV Flush (NS Flush) 2 ml BID FLUSH Last administered on 08/21/16 07:57; Start 08/21/16 at 09:00 Ondansetron HCl (Zofran Inj) 4 mg Q6H PRN IVP NAUSEA OR VOMITING Last administered on 08/21/16 07:57; Start 08/21/16 at 01:00 Naloxone HCl 0.4 mg 0.4 mg UNSCH PRN IV SEE LABEL COMMENTS; Start 08/21/16 at 01:00 Dextrose/Sodium Chloride 1,000 ml @ 125 mls/hr Q8H IV ; Start 08/21/16 at 01:00 ; Stop 08/21/16 at 01:00; Status DC Potassium Chloride/Sodium Chloride 1,000 ml @ 125 mls/hr Q8H IV Last administered on 08/21/16 05:20; Start 08/21/16 at 01:00 Piperacillin Sod/ Tazobactam Sod (Zosyn 4.5 Gm Premix) 100 ml @ 200 mls/hr Q6H IV Last administered on 08/21/16 05:43; Start 08/21/16 at 06:00 Morphine Sulfate (Morphine Inj) 2 mg Q3H PRN IV PUSH pain >5 Last administered on 08/21/16 08:42; Start 08/21/16 at 01:00 Lorazepam (Ativan Inj) 1 mg Q4H PRN IV PUSH anxiety Last administered on 07:56; Start 08/21/16 at 02:45 Phenol (Chloraseptic Acton) 2 spray ONCE ONCE OROPHARYNG Last administered on 08/21/16 03:07; Start 08/21/16 at 02:45; Stop 08/21/16 at 02:46; Status DC Bupropion HCl (Wellbutrin Sr) 300 mg DAILY PO ; Start 08/21/16 at 09:00 Lamotrigine (LaMICtal) 150 mg BID PO ; Start 08/21/16 at 09:00 Lurasidone HCl (Latuda) 100 mg HS PO ; Start 08/21/16 at 21:00 Pantoprazole Sodium 40 mg 40 mg DAILY IV PUSH Last administered on 08/21/16 08 :41; Start 08/21/16 at 09:00 Metronidazole (Flagyl 500 Mg Inj) 100 ml @ 100 mls/hr Q6H IV ; Start 08/21/16 at 09:00 A/P Assessment and Plan A/P Ileus NG tube in place- continue with supportive care; IV fluid/ pain control and antiemetics- continue with IV antibiotics general surgery consulted. 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
--- NOTE | 2016-08-21 11:40 | PD.CONS ---
HPI History of Present Illness This is a 36 year old female with a history of small intestine bacterial overgrowth and gastroparesis who came to the emergency room for nausea, vomiting , diarrhea, and abdominal pain. She reports that she was diagnosed with SIBO and gastroparesis in 2006 at [facility] in [place]. She was given a trial of Xifaxan for her bacterial overgrowth but reports that this did not help. She reports that for her gastroparesis, she was instructed on diet modification and given Zofran and Phenergan when necessary. She continues to have issues with frequent nausea and vomiting. She is not on any scheduled medications for her gastroparesis. She reports that she mainly controls this with her diet and Zofran as needed. She reports that one time she did lose 30 pounds but she is now back up to her baseline after making sure she was getting high caloric foods in. She does have chronic constipation which she tries to control with her diet. She has tried MiraLAX in the past but states this makes her nauseous. She has also tried Colace and more recently has been taking glycerin suppositories as needed and occasional Dulcolax or fleets enema. She reports that her symptoms began suddenly 6 days ago. She woke up morning with her abdomen quite distended and diffuse abdominal pain that was worse on the right side of her navel. She describes this as "broken glass" throughout her abdomen. She had not had a bowel movement in several days and therefore she took a glycerin suppository thinking that this may be contributing to her symptoms. She reports that she passed 2 very small round bowel movements but nothing significant and therefore took a fleets enema now or later. She reports that she denies initially pass any stool after that. However, an hour later she started having liquid stools with 25-30 loose stools with mucus. She took some Zofran and tried to eat some crackers and eggs evening. On Saturday she reports that her abdominal distention was worse and therefore she went to the ER in [place] where she had a CT scan scan without contrast (08/17/16) which was negative CT scan of the abdomen and pelvis, the appendix is not definitively visualized however no inflammatory changes are seen within the right lower quadrant. If symptoms persist repeat examination with IV and oral contrast could be performed. The patient reports that she was discharged but continued to have abdominal pain with nausea vomiting and diarrhea. She reports that she was drinking some clear liquids but after several days she decided to try some ensure- which made her start to have the vomiting again. She also had some more diarrhea after taking this. She reports that she spent having 15 bowel movements per day and was having incontinence to the point that she had to purchase some adult briefs to wear. She notes that there is mucus in her stool but no blood. She then came to the hospital on 08/20/16 for worsening symptoms and had another repeat CT scan without IV contrast and this revealed an ileus versus obstruction has developed , favor the former, and potentially on the basis of acute appendicitis in the proper clinical setting. NG tube was placed to low intermittent wall suction. She had 700 cc out overnight but only 100 cc that shift. She reports that she last had a loose bowel movement overnight. Gen. surgery was consulted and he has recommended a GI and gynecological evaluation. The patient reports that she last had a colonoscopy in 2005 and this revealed internal hemorrhoids. She reports that her last endoscopy was in 2006 and the reason was to rule out celiac disease. She reports that this was normal. She denies any suspicious food, travel, sick contacts. 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 History of SIBO in 2006 Gastroparesis Chronic constipation Anxiety Asthma Chronic back pain Fibromyalgia GERD Chronic headaches Osteoporosis Posttraumatic stress disorder Vitamin D deficiency Tachycardia Orthostatic hypotension Pulmonary blebs Osteoporosis Past Surgical History EGD/Colonoscopy Coded Allergies: Haldol (Verified Allergy, Severe, SPASMS, 08/17/16) Tramadol (Verified Allergy, Severe, HIVES, 08/17/16) Contrast Media (Verified Allergy, Mild, NAUSEA, 08/17/16) Ketamine (Verified Adverse Reaction, Mild, ANXIETY, 08/17/16) Medications Allergies Coded Allergies Type Severity Reaction Last Updated Verified Haldol Allergy Severe SPASMS 08/17/16 Yes Tramadol Allergy Severe HIVES 08/17/16 Yes Contrast Media Allergy Mild NAUSEA 08/17/16 Yes Ketamine Adverse Reaction Mild ANXIETY 08/17/16 Yes Active Scripts Medications Dose Route/Sig Days Date Category K-Tab (Potassium Chloride) 20 Meq Tab 60 Meq PO ONCE 08/17/16 Rx Zofran Odt (Ondansetron Odt) 4 Mg Tab 4 Mg SL Q6HR PRN 06/29/16 Rx Temazepam 30 Mg Cap 30 Mg PO HS PRN 06/29/16 Reported Latuda (Lurasidone) 80 Mg Tab 100 Mg PO HS 06/29/16 Reported Lamictal (Lamotrigine) 150 Mg Tab 150 Mg PO BID 06/29/16 Reported Wellbutrin SR 12 HR (Bupropion HCl) 150 Mg Tab 300 Mg PO DAILY 06/29/16 Reported Alprazolam 0.5 Mg Tab 1 Mg PO QID PRN 06/29/16 Reported Family History Celeste Danlos syndrome in multiple family members- from father's side HTN in father Mother with Arthritis Social History Smokes about a pack a day. Denies any alcohol abuse or drug abuse. Review of Systems Constitutional: COMPLAINS OF: Fatigue, Dizziness, Change in appetite Respiratory: DENIES: Cough Gastrointestinal: COMPLAINS OF: Abdominal pain, Diarrhea, Nausea, Heartburn, DENIES: Black stools, Bloody stools, Constipation Musculoskeletal: COMPLAINS OF: Joint pain, Back pain Hematologic/lymphatic: DENIES: Bruising Neurologic: COMPLAINS OF: Headache Psychiatric: COMPLAINS OF: Anxiety, DENIES: Confusion GI Exam Vitals I&O Vital Signs Date Time Temp Pulse Resp B/P Pulse Ox O2 Delivery O2 Flow Rate FiO2 08/21/16 08:10 98.6 108 18 137/94 96 08/21/16 07:45 Room Air 08/21/16 04:08 98.5 114 20 142/92 99 08/21/16 01:01 99.1 121 20 155/97 98 08/21/16 00:37 101 16 159/93 99 Room Air 08/21/16 00:12 Room Air 08/20/16 23:01 16 08/20/16 22:58 16 08/20/16 22:58 98.1 102 16 152/104 99 Room Air 08/20/16 19:33 98.7 103 16 148/88 98 Room Air 08/20/16 19:33 16 08/20/16 19:20 98 Room Air 08/20/16 18:45 98.4 106 18 153/107 99 I/O 08/20/16 08/20/16 08/20/16 08/21/16 08/21/16 08/21/16 07:00 15:00 23:00 07:00 15:00 23:00 Intake Total 1100 ml 547 ml Output Total 1050 ml Balance 1100 ml -503 ml Intake IV Total 1100 ml 547 ml Output Gastric Drainage Total 1050 ml # Voids 1 # Bowel Movements 0 Imaging Last Impressions Abdomen/Pelvis CT 08/20/16 1850 Signed Impressions: Service Date/Time: Saturday, August 20, 2016 20:31 - CONCLUSION: Ileus versus obstruction has developed, favor the former, and potentially on the basis of acute appendicitis in the proper clinical setting. Fei Gregorio MD Chest X-Ray 08/20/16 0000 Signed Impressions: Service Date/Time: Saturday, August 20, 2016 22:47 - CONCLUSION: NG tube tip is in the upper stomach, sidehole near the GE junction. Distended small bowel. Decompressed stomach. Fei Gregorio MD Laboratory Test 08/20/16 08/21/16 19:29 08:21 White Blood Count 7.8 TH/MM3 6.2 TH/MM3 Red Blood Count 3.76 MIL/MM3 3.41 MIL/MM3 Hemoglobin 11.8 GM/DL 10.5 GM/DL Hematocrit 34.0 % 30.6 % Mean Corpuscular Volume 90.3 FL 89.9 FL Mean Corpuscular Hemoglobin 31.5 PG 30.9 PG Mean Corpuscular Hemoglobin 34.9 % 34.4 % Concent Red Cell Distribution Width 11.6 % 12.0 % Platelet Count 217 TH/MM3 214 TH/MM3 Mean Platelet Volume 8.2 FL 7.7 FL Neutrophils (%) (Auto) 82.5 % 64.5 % Lymphocytes (%) (Auto) 6.4 % 19.2 % Monocytes (%) (Auto) 10.6 % 14.9 % Eosinophils (%) (Auto) 0.3 % 1.2 % Basophils (%) (Auto) 0.2 % 0.2 % Neutrophils # (Auto) 6.5 TH/MM3 4.0 TH/MM3 Lymphocytes # (Auto) 0.5 TH/MM3 1.2 TH/MM3 Monocytes # (Auto) 0.8 TH/MM3 0.9 TH/MM3 Eosinophils # (Auto) 0.0 TH/MM3 0.1 TH/MM3 Basophils # (Auto) 0.0 TH/MM3 0.0 TH/MM3 CBC Comment AUTO DIFF DIFF FINAL Differential Comment AUTO DIFF CONFIRMED Dohle Bodies PRESENT Platelet Estimate NORMAL Platelet Morphology Comment NORMAL Red Cell Morphology Comment Prothrombin Time 10.8 SEC Prothromb Time International 1.0 RATIO Ratio Activated Partial 27.6 SEC Thromboplast Time Sodium Level 137 MEQ/L 141 MEQ/L Potassium Level 2.6 MEQ/L 3.0 MEQ/L Chloride Level 100 MEQ/L 106 MEQ/L Carbon Dioxide Level 23.4 MEQ/L 24.1 MEQ/L Anion Gap 14 MEQ/L 11 MEQ/L Blood Urea Nitrogen 8 MG/DL 6 MG/DL Creatinine 0.47 MG/DL 0.52 MG/DL Estimat Glomerular Filtration 150 ML/MIN 133 ML/MIN Rate Random Glucose 84 MG/DL 77 MG/DL Calcium Level 8.4 MG/DL 7.9 MG/DL Magnesium Level 2.4 MG/DL 2.1 MG/DL Total Bilirubin 0.5 MG/DL Aspartate Amino Transf 38 U/L (AST/SGOT) Alanine Aminotransferase 73 U/L (ALT/SGPT) Alkaline Phosphatase 116 U/L Total Protein 6.6 GM/DL Albumin 2.7 GM/DL Lipase 88 U/L Human Chorionic Gonadotropin, LESS THAN 1 Quant MIU/ML Date/Time Procedure Status Source Growth 08/20/16 19:18 Influenza Types A,B Antigen (EZIO) - Final Complete Nasal Washing NEGATIVE FOR FLU A AND B ANTIGEN.... Physical Examination HEENT: Normocephalic; atraumatic; no jaundice. CHEST: CTA CARDIAC: RRR ABDOMEN: Soft, mildly distended, diffuse tenderness; no hepatosplenomegaly; bowel sounds are present in all four quadrants. NGT to LIWS EXTREMITIES: No clubbing, cyanosis, or edema. SKIN: Normal; no rash; no jaundice. SHOT EXAMINER: No focal deficits; alert and oriented times three. Assessment and Plan Plan ASSESSMENT: - N/V/D with abdominal pain. Pt with hx of SIBO (2006)- given Xifaxan, no improvement and Gastroparesis 2006 (diet modification, zofran, phenergan prn). Last EGD to r/o celiac dz 2006 negative, Colonoscopy 2005- internal hemorrhoids. CT scan without IV contrast and this revealed an ileus versus obstruction has developed, favor the former, and potentially on the basis of acute appendicitis in the proper clinical setting. WBC 6.2. Low grade temp. 99.1. GS following, requested GI/BOX STACKER evaluation. ? Ileus vs. PSBO, ? gastroenteritis, vs. other. Will get stool studies, cont, supportive care. Would benefit from EGD/ Colonoscopy once above issues resolve. - Chronic constipation. Currently trying diet modification, glycerin suppositories, fleets enema/dulcolax as needed. States Miralax makes her nauseous and colace does not work. - Gastroparesis. States she has been on diet modification, zofran, phenergan prn - Severe hypokalemia, Ehler Dhalos syndrome. per primary PLAN: - NPO - NGT to LIWS - Stool studies - Cipro - IVF - PPI - Consider SBFT if no improvement - Consider EGD/Colonoscopy once above issues resolve. - GS following - BOX STACKER consulted - Supportive care - Further recommendations to follow based on results of above - Pt seen and examined by Dr. Wells and myself and this note is written on his behalf Sandra Parmar Aug 21, 2016 11:40
[2016-08-21] MEDS: metroNIDAZOLE 500 MG INJ 100 ML IV SCH ×3 (12:13→22:36)
--- NOTE | 2016-08-21 16:06 | PD.CONS ---
History & Physical H&P LACE INSPECTOR Consult History of present illness: LACE INSPECTOR hospitalist service was consulted to rule out possible pelvic infection. Patient is a 36-year-old G0 with past medical history significant for Celeste- Danlos syndrome who presented to the ED with nausea, vomiting, abdominal pain and diarrhea. Those symptoms had been lasting for a week prior to admission. She has been worked up for these symptoms which included CT abdomen and pelvis 2, the latter showing ileus versus obstruction. Current working diagnosis is ileus. She does note bilious vomitus which was decreased. She states she currently feels very tired at her primary team states that they will work up the GI symptoms after she is better hydrated. She notes that she is still having liquid bowel movements with some accidents. She currently has NG tube in place with approximately 1 L output today. She denies overt abdominal pain. He denies having any dysuria symptoms at this time. On Saturday she did have a small amount of discharge which made her think she might have yeast infection, but this resolved that day. She denies fever, chills, headaches, blurry vision, chest pain. Beta hCG collected at admission was negative. Past medical history: Per primary team notes and patient report, she has a history significant for Celeste-Danlos syndrome multiple complications and chronic ileus. She does not have notable LACE INSPECTOR history, with PMH showing multiple pulmonary and GI issues including gastric paresis, constipation, anxiety, PTSD. OB history: G0, no pregnancies. 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 Sexually active with one male partner. No condom use. She denies history of STI's, however, does note that she has had BV and yeast infections in the past. Surgeries: None Medications: Per primary team Allergies: None Family history: Per EMR, multiple members with Celeste-Danlos syndrome. Mother with breast, father with hypertension. Social: Patient denies cigarettes, alcohol, illicit drug use. History of present illness per admission documents one pack per day of cigarette use. Objective: GENERAL: female lying in bed, possibly pale, in no acute distress. NG tube in place. SKIN: Warm and dry. No obvious rashes or bruises. CARDIOVASCULAR: Regular rate and rhythm without murmurs, gallops, or rubs. RESPIRATORY: Breath sounds equal bilaterally. No accessory muscle use. ABDOMEN/GI: Abdomen soft, non-tender, bowel sounds present but hypoactive, no rebound, no guarding. Uterus not palpable. GENITOURINARY: Deferred. Patient had adult diaper on. EXTREMITIES: No cyanosis or edema. NEUROLOGICAL: Awake and alert. Grossly normal motor function. Normal speech. Assessment/Plan: 36-year-old female without significant LACE INSPECTOR history. OB team was consulted for evaluation for possible pelvic infection. No obvious LACE INSPECTOR sources of infection or pathology noted on history or physical exam. Recommend clinical monitoring, if symptoms arise suggestive of LACE INSPECTOR pathology, recommend further workup to include indicated studies, e.g., blood cultures, repeat UA, STI studies, wet prep as indicated. If symptoms arise, patient will likely require pelvic exam, however, this is not indicated at this time. Patient was discussed with Dr. Ashton. Patient was seen and discussed with Dr. Aram Schultz. (Mirna Iverson MD R1) H&P The exam, history, and the medical decision-making described in the above note were completed with the assistance of the resident provider. I reviewed and agree with the findings presented. I attest that I had a [id number] encounter with the patient on the same day, and personally performed and documented my assessment and findings in the medical record. (Otilia Ashton MD) Mirna Iverson MD R1 Aug 21, 2016 16:06 Otilia Ashton MD Aug 21, 2016 17:04
--- NOTE | 2016-08-21 17:45 | MB ---
cc: BISIROXANA DATE OF CONSULTATION: The first time evaluation at 07:30 a.m. on 08/21/2016 REQUESTING PHYSICIAN: Dr. López Amado, Emergency room physician. REASON FOR CONSULTATION: Abdominal pain, possible ileus, rule out appendicitis. HISTORY OF PRESENT ILLNESS The patient is a 36-year-old female with a complicated past medical history which includes; chronic abdominal pain and dysmotility as well as Celeste Danlos syndrome. The patient states that she has not been following up with any physicians or including her brim buster due to having bad insurance and insurance issues and she developed with over 24 hours of increasingly severe abdominal pain. She did present to the emergency department on 08/17/[address] scan of the abdomen pelvis without contrast due to contrast allergy which was unremarkable. The patient that she fell better. However, there was no diagnosis given to her and she was discharged home. The patient then returned on 08/20/2016 with more severe pain, bloating as well as severe nausea, vomiting and diarrhea. The patient underwent repeat evaluation including CT scan wish also at that point time showed dilated colon and some loops of small bowel free fluid in the pelvis, concerning for possible intraabdominal process. The appendix was not visualized at that time either as in the first scan. The patient had a NG tube placed and had significant biliary output, at that time. The patient does state she feels like this is consistent with her previous intestinal overgrowth symptoms although this is the worst that she has had in her life. The patient denies eating anything different or having, taking any new medications, or doing anything differently at this time. The patient does deny any PIANO TEACHER type symptoms discharge for pain but does state she is sexually active and does have an IUD. The patient states that she does have multiple PIANO TEACHER complaints and has had trouble seeing PIANO TEACHER due to insurance issues, but plans to see Dr. Nimco Miles as an outpatient. REVIEW OF SYSTEMS The patient is negative except for the pertinent positives as mentioned above. In the history of present illness. PAST MEDICAL HISTORY: 1. Celeste Danlos syndrome 2. Gastroparesis. 3. Corneal damage 4. Tachycardia. 5. Orthostatic hypotension 6. Pulmonary blebs. 7 osteoporosis. PAST SURGICAL HISTORY No abdominal surgeries. ALLERGIES HALDOL TRAMADOL CONTRAST MEDIA KETAMINE MEDICATIONS: Zofran Lamictal Wellbutrin Latuda Xanax Temazepam Potassium FAMILY HISTORY: Celeste Danlos syndrome multiple family members. SOCIAL HISTORY The patient smokes cigarettes. Denies all illicit drug use or alcohol use. PHYSICAL EXAMINATION VITAL SIGNS: Temperature 99 turned 98.5 degrees, heart rate 114, blood pressure 142/92 with a 779% IN GENERAL: the patient is a chronically ill-appearing female in bed. The patient was not appear in any acute distress or not. Scarlett ill. HEAD, EYES, EARS, NOSE, AND THROAT: Head: Normocephalic, atraumatic. Sclerae is anicteric. Mucous sounds are moist. No DIPIKA place. NECK: Supple. No JVD. LUNGS: Clear bilaterally. Nonlabored breathing pattern hurts tachycardiac. PMI is nondisplaced. ABDOMEN: The abdomen is mildly distended, tender to palpation subjective throughout with no rebound or guarding. The patient has hypoactive bowel sounds. EXTREMITIES: No clubbing, cyanosis or edema. BACK: No CVA tenderness. NEUROLOGIC: The patient is alert and oriented times three and moving all extremities. Nonfocal cranial II-XII grossly intact. LABORATORY VALUES: White blood cell count 6.2, potassium is 3.0. IMAGING: Has been reviewed and is as above. ASSESSMENT AND PLAN: The patient is a 36-year-old female with chronic good GI complaints, Celeste Danlos syndrome, bacterial overgrowth on multiple medications. The patient developed what appears to be a flare or worsening of her GI dysmotility and GI problems and presenting as an ileus type picture. There is some concern about infectious process, though the patient is afebrile and has a normal white blood cell count. The patient does have an IUD in place, some fluid in the pelvis and has had some previous gynecology complaints. I will consult gynecology for evaluation to rule out any potential PIANO TEACHER complication or process. Also to consult gastroenterology for assistance and management of the patients acute on chronic gastrointestinal complaints. Clinically the patient had a very atypical presentation for acute abdominal process such as appendicitis. This was not completely ruled out based on the imaging, however has not completely ruled out based on imaging. Therefore I do feel that we should follow the patient clinically as the patient develops clinical signs of an intraoral process will consider exploratory surgery, however, I feel that this is very unlikely to be needed on this patient. We will follow along with this patient. MD KAVIN Acosta/deshawn /4:33 PM /5:06 PM
[2016-08-21] MEDS: LURASIDONE 40 MG TAB PO SCH (21:00)
[2016-08-22] MEDS: NS + KCL 40 MEQ INJ 1,000 ML IV SCH ×4 (01:00→22:17)
[2016-08-22] MEDS: metroNIDAZOLE 500 MG INJ 100 ML IV SCH ×4 (01:47→22:16)
[2016-08-22] MEDS: MORPHINE SULFATE 4 MG/ML INJ IV PUSH PRN ×5 (02:02→22:16)
[2016-08-22] MEDS: LORazepam 2 MG/ML VIAL IV PUSH PRN ×5 (04:00→21:01)
[2016-08-22 04:05] VITALS: BP 135/91; PULSE 124; RESP 19; TEMP 101.3; O2SAT 95
[2016-08-22] MEDS: ONDANSETRON HCL 4 MG/2 ML VIAL IVP PRN ×3 (05:05→20:57)
[2016-08-22] MEDS: PIPERACIL-TAZO 4.5 GM PREMIX 100 ML IV SCH ×4 (05:06→22:16)
[2016-08-22 07:01] LABS: AUTOMATED NEUTROPHIL # 5.2 TH/MM3 (1.8-7.7); BASOPHIL % 0.4 % (0.0-2.0); EOSINOPHIL # 0.1 TH/MM3 (0-0.4); EOSINOPHIL % 0.9 % (0.0-4.0); HEMATOCRIT 32.8 % (35.0-46.0); LYMPH % 16.2 % (9.0-44.0); LYMPHOCYTE # 1.3 TH/MM3 (1.0-4.8); MEAN CELL VOLUME 90.7 FL (80.0-100.0); MEAN CORPUSCULAR HEMOGLOBIN 31.6 PG (27.0-34.0); MEAN CORPUSCULAR HGB CONC 34.9 % (32.0-36.0); MONO % 17.6 % (0.0-8.0); NEUT % 64.9 % (16.0-70.0); PLATELET COUNT 256 TH/MM3 (150-450); RED BLOOD COUNT 3.62 MIL/MM3 (4.00-5.30); RED CELL DISTRIBUTION WIDTH 12.3 % (11.6-17.2)
[2016-08-22 07:22] LABS: POTASSIUM 3.1 MEQ/L (3.5-5.1)
[2016-08-22 07:24] LABS: HEMO FLAGS AUTO DIFF
[2016-08-22 08:13] VITALS: BP 135/93; PULSE 111; RESP 20; TEMP 99.8; O2SAT 96
[2016-08-22 08:13] LABS: BANDS 2 % (0-6); BASOPHILS 1 % (0-2); EOSINOPHILS 1 % (0-4); NEUTROPHIL # MANUAL DIFF 5.4 TH/MM3 (1.8-7.7); PLATELET ESTIMATE SMEAR NORMAL (NORMAL); PLATELET MORPHOLOGY NORMAL (NORMAL); POLYS (SEG NEUTROPHILS) 65 % (16-70); SCAN/DIFF FINAL DIFF MANUAL; WBC DIFF SAMPLE 100
[2016-08-22] MEDS: PANTOPRAZOLE SODIUM 40 MG VIAL IV PUSH SCH (08:31)
[2016-08-22] MEDS: lamoTRIgine 100 MG TAB PO SCH ×2 (08:33→21:00)
[2016-08-22] MEDS: SODIUM CHLORIDE 0.9% FLUSH 5 ML FLUSH FLUSH SCH ×2 (08:34→22:17)
[2016-08-22] MEDS: buPROPion HCL 150 MG SUSTAINED RELEASE TAB PO SCH (08:34)
--- NOTE | 2016-08-22 09:47 | HHI.PR ---
Subjective Remarks Follow-up intractable nausea/vomiting/abdominal pain/ileus 08/22/16-patient seen and examined, currently nothing by mouth with NG tube in place. Positive for abdominal pain but denies any emesis or significant nausea Objective Vitals Vital Signs Date Time Temp Pulse Resp B/P Pulse Ox O2 Delivery O2 Flow Rate FiO2 08/22/16 08:13 99.8 111 20 135/93 96 08/22/16 04:05 101.3 124 19 135/91 95 08/21/16 19:15 98.2 119 18 149/95 97 08/21/16 15:10 97.8 118 16 131/91 95 08/21/16 12:10 112 08/21/16 12:10 97.8 114 16 142/97 96 I/O 08/21/16 08/21/16 08/21/16 08/22/16 08/22/16 08/22/16 07:00 15:00 23:00 07:00 15:00 23:00 Intake Total 547 ml 1064 ml 744 ml 646 ml Output Total 1050 ml 200 ml 200 ml 900 ml Balance -503 ml 864 ml 544 ml -254 ml Intake Oral 0 ml 0 ml IV Total 547 ml 1064 ml 744 ml 646 ml Output Urine Total 200 ml 700 ml Gastric Drainage Total 1050 ml 200 ml 200 ml # Voids 1 3 # Bowel Movements 0 1 0 0 Result Diagram: 08/22/16 0604 08/22/16 0604 Imaging Last Impressions Abdomen/Pelvis CT 08/20/16 1850 Signed Impressions: Service Date/Time: Saturday, August 20, 2016 20:31 - CONCLUSION: Ileus versus obstruction has developed, favor the former, and potentially on the basis of acute appendicitis in the proper clinical setting. Fei Gregorio MD Chest X-Ray 08/20/16 0000 Signed Impressions: Service Date/Time: Saturday, August 20, 2016 22:47 - CONCLUSION: NG tube tip is in the upper stomach, sidehole near the GE junction. Distended small bowel. Decompressed stomach. Fei Gregorio MD Objective Remarks GENERAL: NAD SKIN: Warm and dry. HEAD: Normocephalic. EYES: No scleral icterus. No injection or drainage. NECK: Supple, trachea midline. No JVD or lymphadenopathy. CARDIOVASCULAR: Regular rate and rhythm without murmurs, gallops, or rubs. RESPIRATORY: Breath sounds equal bilaterally. No accessory muscle use. GASTROINTESTINAL: Abdomen soft, mildly tender, nondistended. Hypoactive bowel sounds MUSCULOSKELETAL: No cyanosis, or edema. BACK: Nontender without obvious deformity. No CVA tenderness. A/P Problem List: (1) Ileus ICD Code: K56.7 Status: Acute (2) Gastroparesis ICD Code: K31.84 Status: Acute (3) Abdominal pain ICD Code: R10.9 Status: Acute (4) Nausea ICD Code: R11.0 Status: Acute (5) Celeste-Danlos syndrome ICD Code: Q79.6 Status: Acute Assessment and Plan 36-year-old female with 1-Ileus: Currently nothing by mouth with NG tube in place, check flat and upright. Continue with Zosyn and Flagyl. Appreciate input from general surgery. GI consultation appreciated and plan for EGD/colonoscopy 2-Intractable nausea/vomiting/abdominal pain: Continue anti-emetic, Reglan, nothing by mouth, IV fluid hydration. GI input appreciated and plan for possible EGD/colonoscopy 3-Hypokalemia: Replace electrolyte and monitor 4-Ehler Dhalos syndrome and its associated complications as : Gastroparesis/Corneal damage/Tachycardia/Orthostatic hypotension/Pulmonary blebs/Osteoporosis 5-DVT prophylaxis with SCD's 6-GI prophylaxis: PPI Problem Qualifiers (1) Abdominal pain: Qualified Code: R10.84 - Generalized abdominal pain Devyn Mccauley MD Aug 22, 2016 09:47
[2016-08-22] MEDS ORDERED: POTASSIUM CHLORIDE 20 MEQ CONTROLLED RELEASE TAB PO ONE (10:00)
[2016-08-22 11:52] VITALS: BP 134/98; PULSE 116; RESP 20; TEMP 99.5; O2SAT 96
--- NOTE | 2016-08-22 14:02 | HHI.GIFU ---
Subjective Remarks Resting in bed. States that her pain is worse today- gas pains, but she has not passed any stool or flatus. States she has nausea. Objective Vitals I&O Vital Signs Date Time Temp Pulse Resp B/P Pulse Ox O2 Delivery O2 Flow Rate FiO2 08/22/16 11:52 99.5 116 20 134/98 96 08/22/16 08:13 99.8 111 20 135/93 96 08/22/16 04:05 101.3 124 19 135/91 95 08/21/16 19:15 98.2 119 18 149/95 97 08/21/16 15:10 97.8 118 16 131/91 95 I/O 08/21/16 08/21/16 08/21/16 08/22/16 08/22/16 08/22/16 07:00 15:00 23:00 07:00 15:00 23:00 Intake Total 547 ml 1064 ml 744 ml 646 ml Output Total 1050 ml 200 ml 200 ml 900 ml Balance -503 ml 864 ml 544 ml -254 ml Intake Oral 0 ml 0 ml IV Total 547 ml 1064 ml 744 ml 646 ml Output Urine Total 200 ml 700 ml Gastric Drainage Total 1050 ml 200 ml 200 ml # Voids 1 3 # Bowel Movements 0 1 0 0 Laboratory Laboratory Tests Test 08/22/16 06:04 White Blood Count 8.0 Red Blood Count 3.62 Hemoglobin 11.4 Hematocrit 32.8 Mean Corpuscular Volume 90.7 Mean Corpuscular Hemoglobin 31.6 Mean Corpuscular Hemoglobin 34.9 Concent Red Cell Distribution Width 12.3 Platelet Count 256 Mean Platelet Volume 7.9 Neutrophils (%) (Auto) 64.9 Lymphocytes (%) (Auto) 16.2 Monocytes (%) (Auto) 17.6 Eosinophils (%) (Auto) 0.9 Basophils (%) (Auto) 0.4 Neutrophils # (Auto) 5.2 Lymphocytes # (Auto) 1.3 Monocytes # (Auto) 1.4 Eosinophils # (Auto) 0.1 Basophils # (Auto) 0.0 CBC Comment AUTO DIFF Differential Total Cells 100 Counted Neutrophils % (Manual) 65 Band Neutrophils % 2 Lymphocytes % 18 Monocytes % 13 Eosinophils % 1 Basophils % 1 Neutrophils # (Manual) 5.4 Differential Comment FINAL DIFF MANUAL Platelet Estimate NORMAL Platelet Morphology Comment NORMAL Red Cell Morphology Comment NORMAL Sodium Level 138 Potassium Level 3.1 Chloride Level 101 Carbon Dioxide Level 23.0 Anion Gap 14 Blood Urea Nitrogen 3 Creatinine 0.58 Estimat Glomerular Filtration 118 Rate Random Glucose 88 Calcium Level 8.1 Date/Time Procedure Status Source Growth 08/20/16 19:18 Influenza Types A,B Antigen (EZIO) - Final Complete Nasal Washing NEGATIVE FOR FLU A AND B ANTIGEN.... Imaging Last Impressions Abdomen/Pelvis CT 08/20/16 1850 Signed Impressions: Service Date/Time: Saturday, August 20, 2016 20:31 - CONCLUSION: Ileus versus obstruction has developed, favor the former, and potentially on the basis of acute appendicitis in the proper clinical setting. Fei Gregorio MD Chest X-Ray 08/20/16 0000 Signed Impressions: Service Date/Time: Saturday, August 20, 2016 22:47 - CONCLUSION: NG tube tip is in the upper stomach, sidehole near the GE junction. Distended small bowel. Decompressed stomach. Fei Gregorio MD Physical Exam HEENT: Normocephalic; atraumatic; no jaundice. CHEST: CTA CARDIAC: RRR ABDOMEN: Soft, mildly distended, moderate diffuse tenderness; no hepatosplenomegaly; bowel sounds are present in all four quadrants. NGT to LIWS - small amount goldish green drainage EXTREMITIES: No clubbing, cyanosis, or edema. SKIN: Generalize pallor PRINT MANAGER: No focal deficits; alert and oriented times three. Assessment and Plan Plan ASSESSMENT: - N/V/D with abdominal pain. Pt with hx of SIBO (2006)- given Xifaxan, no improvement and Gastroparesis 2006 (diet modification, zofran, phenergan prn). Last EGD to r/o celiac dz 2006 negative, Colonoscopy 2005- internal hemorrhoids. CT scan without IV contrast and this revealed an ileus versus obstruction has developed, favor the former, and potentially on the basis of acute appendicitis in the proper clinical setting. WBC normal 1. GS following, requested GI/DENTIST PRIVATE PRACTICE evaluation. Stool studies pending, no bm. States her pain is worse with nausea and gas pains. Denies passing of flatus or stool. NGT to LIWS- only 200cc this shift, Will get SBFT to evaluate ileus vs. sbo. Would benefit from EGD/Colonoscopy once above issues resolve. - Chronic constipation. Currently trying diet modification, glycerin suppositories, fleets enema/dulcolax as needed. States Miralax makes her nauseous and colace does not work. No bm. - Gastroparesis. States she has been on diet modification, zofran, phenergan prn - Severe hypokalemia, Ehler Dhalos syndrome. per primary PLAN: - NPO - NGT to LIWS - Stool studies - SBFT - IVF - PPI - Bethanechol - Zosyn, Flagyl - Consider EGD/Colonoscopy once above issues resolve. - GS following - DENTIST [facility] PRACT[facility] consulted - Supportive care - Further recommendations to follow based on results of above - Pt seen and examined by Dr. Wells and myself and this note is written on his behalf Sandra Parmar Aug 22, 2016 14:02
[2016-08-22] MEDS ORDERED: DIATRIZOATE MEGLUM/DIATRIZOATE SOD 120 ML BTL (for RAD DIAG) NG ONE (15:14)
[2016-08-22 16:50] VITALS: BP 129/92; PULSE 122; RESP 16; TEMP 96.2; O2SAT 97
[2016-08-22 19:40] VITALS: BP 138/82; PULSE 130; RESP 18; TEMP 96.8; O2SAT 96
[2016-08-22 20:09] LABS: C. DIFF EPI 027 PRESUMPTIVE NEGATIVE (NEGATIVE); C. DIFF TOXIN PCR NEGATIVE (NEGATIVE)
--- NOTE | 2016-08-22 20:55 | RADRPT ---
EXAM DATE/TIME: 08/22/2016 14:25 [facility] COMPARISON: No previous studies available for comparison. INDICATIONS : Abdomen pain with obstruction. FLUORO TIME: 0.7 minutes IMAGE COUNT: 13 CONTRAST: [facility] IMAGING TIME(S): 15 min, 30 min, 45 min, 1 hr, 1.5 hrs2.0, 4.0 MEDICAL HISTORY : Prior obstruction. SURGICAL HISTORY : None. ENCOUNTER: Initial ACUITY: 4 - 6 days PAIN SCORE: 10/10 LOCATION: Bilateral lower quadrant FINDINGS: The initial program developer radiograph shows distended loops of small bowel, especially jejunum. There is air s een in the colon to the level the rectum. Stomach is decompressed with a nasogastric tube. Small bowel transit time is approximately 4 hours. Again seen is moderate distention of the jejunum a nd now apparent moderate mucosal fold thickening.. There is slow/gradual decrease in small bowel harmony marialuisa so that the mid and distal ileum are at the upper limits of normal. No abrupt caliber changes are seen. Mucosal pattern of the ileum within normal limits. CONCLUSION: Features are typical of small bowel ileus rather than obstruction. There is evidence of enteritis pro ximally, nonspecific. Fei Gregorio MD on August 22, 2016 at 20:50 Board Certified Radiologist. This report was verified electronically.
[2016-08-22] MEDS: LURASIDONE 40 MG TAB PO SCH (21:00)
[2016-08-22] MEDS: BETHANECHOL CHL 25 MG TAB PO SCH (22:00)
[2016-08-23] MEDS: NS + KCL 40 MEQ INJ 1,000 ML IV SCH ×2 (00:45→17:00)
[2016-08-23] MEDS: metroNIDAZOLE 500 MG INJ 100 ML IV SCH ×4 (01:15→21:27)
[2016-08-23] MEDS: LORazepam 2 MG/ML VIAL IV PUSH PRN ×4 (01:16→21:23)
[2016-08-23] MEDS: MORPHINE SULFATE 4 MG/ML INJ IV PUSH PRN ×4 (02:43→20:03)
[2016-08-23 04:05] VITALS: BP 139/92; PULSE 103; RESP 18; TEMP 98.6; O2SAT 96
[2016-08-23] MEDS: BETHANECHOL CHL 25 MG TAB PO SCH ×3 (05:34→21:27)
[2016-08-23] MEDS: PIPERACIL-TAZO 4.5 GM PREMIX 100 ML IV SCH ×4 (05:34→18:00)
[2016-08-23 07:32] LABS: BICARBONATE 22.2 MEQ/L (21.0-32.0); POTASSIUM 3.1 MEQ/L (3.5-5.1)
[2016-08-23 08:00] VITALS: BP 140/79; PULSE 110; RESP 18; TEMP 99.5; O2SAT 98
[2016-08-23] MEDS: PANTOPRAZOLE SODIUM 40 MG VIAL IV PUSH SCH (08:00)
[2016-08-23] MEDS: ONDANSETRON HCL 4 MG/2 ML VIAL IVP PRN ×3 (08:02→21:22)
[2016-08-23] MEDS: lamoTRIgine 100 MG TAB PO SCH ×2 (09:00→21:00)
[2016-08-23] MEDS: SODIUM CHLORIDE 0.9% FLUSH 5 ML FLUSH FLUSH SCH ×2 (09:00→21:00)
[2016-08-23] MEDS: buPROPion HCL 150 MG SUSTAINED RELEASE TAB PO SCH (09:00)
[2016-08-23 12:00] VITALS: BP 133/89; PULSE 105; RESP 20; TEMP 98.1; O2SAT 96
--- NOTE | 2016-08-23 12:28 | HHI.GIFU ---
Subjective Remarks Patient continues to have abdominal pain she reports that this is a 7-1/2 on scale 0-10. She does report that her distention has improved. She had 7 loose bowel movements following the small bowel series yesterday and had a more formed bowel movement this morning. Objective Vitals I&O Vital Signs Date Time Temp Pulse Resp B/P Pulse Ox O2 Delivery O2 Flow Rate FiO2 08/23/16 08:00 99.5 110 18 140/79 98 08/23/16 04:05 98.6 103 18 139/92 96 08/22/16 19:40 96.8 130 18 138/82 96 08/22/16 19:29 Room Air 08/22/16 16:50 96.2 122 16 129/92 97 I/O 08/22/16 08/22/16 08/22/16 08/23/16 08/23/16 08/23/16 07:00 15:00 23:00 07:00 15:00 23:00 Intake Total 646 ml 0 ml 229 ml 643 ml Output Total 900 ml 1000 ml 500 ml Balance -254 ml -1000 ml 229 ml 143 ml Intake Oral 0 ml 0 ml 229 ml 0 ml IV Total 646 ml 643 ml Output Urine Total 700 ml 700 ml Gastric Drainage Total 200 ml 300 ml 500 ml # Voids 2 3 3 # Bowel Movements 0 0 7 3 Laboratory Laboratory Tests Test 08/22/16 08/23/16 17:45 06:20 Stool C. difficile Toxin (PCR) NEGATIVE Stl C. difficile Toxin PRESUMPTIVE Epiderm 027 NEGATIVE Sodium Level 143 Potassium Level 3.1 Chloride Level 109 Carbon Dioxide Level 22.2 Anion Gap 12 Blood Urea Nitrogen 6 Creatinine 0.47 Estimat Glomerular Filtration 150 Rate Random Glucose 97 Calcium Level 8.3 Date/Time Procedure Status Source Growth 08/22/16 17:45 Cryptosporidium Exam - Final Complete Stool Stool NEGATIVE - NO CRYPTOSPORIDIUM ANTIGEN... 08/22/16 17:45 Giardia Antigen (EZIO) - Final Complete Stool Stool NEGATIVE - NO GIARDIA ANTIGEN DETECTE... 08/22/16 17:45 Received Stool Stool Pending 08/20/16 19:18 Influenza Types A,B Antigen (EZIO) - Final Complete Nasal Washing NEGATIVE FOR FLU A AND B ANTIGEN.... Imaging Last Impressions Small Bowel X-Ray 08/22/16 0000 Signed Impressions: Service Date/Time: Monday, August 22, 2016 14:25 - CONCLUSION: Features are typical of small bowel ileus rather than obstruction. There is evidence of enteritis proximally, nonspecific. Fei Gregorio MD Abdomen/Pelvis CT 08/20/16 1850 Signed Impressions: Service Date/Time: Saturday, August 20, 2016 20:31 - CONCLUSION: Ileus versus obstruction has developed, favor the former, and potentially on the basis of acute appendicitis in the proper clinical setting. Fei Gregorio MD Chest X-Ray 08/20/16 0000 Signed Impressions: Service Date/Time: Saturday, August 20, 2016 22:47 - CONCLUSION: NG tube tip is in the upper stomach, sidehole near the GE junction. Distended small bowel. Decompressed stomach. Fei Gregorio MD Physical Exam HEENT: Normocephalic; atraumatic; no jaundice. CHEST: CTA CARDIAC: RRR ABDOMEN: Soft, nondistended, moderate diffuse tenderness; no hepatosplenomegaly ; bowel sounds are present in all four quadrants. NGT to LIWS- small amount goldish green drainage EXTREMITIES: No clubbing, cyanosis, or edema. SKIN: Generalize pallor REPRESENTATIVE: No focal deficits; alert and oriented times three. Assessment and Plan Plan ASSESSMENT: - Ileus. N/V/D with abdominal pain. Pt with hx of SIBO (2006)- given Xifaxan, no improvement and Gastroparesis 2006 (diet modification, zofran, phenergan prn) . Last EGD to r/o celiac dz 2006 negative, Colonoscopy 2005- internal hemorrhoids. CT scan without IV contrast and this revealed an ileus versus obstruction has developed, favor the former, and potentially on the basis of acute appendicitis in the proper clinical setting. 1. GS following, requested GI/ ROOM SERVICE WAITER evaluation. Stool studies enteric pathogens pending. Small Bowel X-Ray (08/22/16)----> Features are typical of small bowel ileus rather than obstruction. There is evidence of enteritis proximally, nonspecific. States she continues to have pain, although her distention has improved and she is now having bowel movements. Would benefit from EGD/Colonoscopy once above issues resolve. - Chronic constipation. + bm. - Gastroparesis. States she has been on diet modification, zofran, phenergan prn - Severe hypokalemia, Ehler Dhalos syndrome. per primary PLAN: - Clamp NGT - Clear liquids - If n/v, worsening distention, place back to LIWS - Await final Stool studies - Cont. PPI - Cont. Bethanechol - Cont. Zosyn, Flagyl - Consider EGD/Colonoscopy once above issues resolve. - Family concerned about her nutritional status, hopefully she will tolerate diet and this will be able to be advanced - Try to decrease narcotic use, as this may be contributing to her ileus. - GS following - ROOM SERVICE WAITER consulted - Supportive care - Further recommendations to follow based on results of above - Pt seen and examined by Dr. Wells and myself and this note is written on his behalf Sandra Parmar Aug 23, 2016 12:28
--- NOTE | 2016-08-23 13:03 | HHI.PR ---
Subjective Remarks Follow-up intractable nausea/vomiting/abdominal pain/ileus 08/22/16-patient seen and examined, currently nothing by mouth with NG tube in place. Positive for abdominal pain but denies any emesis or significant nausea 08/23/16-patient seen and examined, still with nausea however no emesis. Also complained of some abdominal pain. Patient also had facial and post nasal drip Objective Vitals Vital Signs Date Time Temp Pulse Resp B/P Pulse Ox O2 Delivery O2 Flow Rate FiO2 08/23/16 12:00 98.1 105 20 133/89 96 08/23/16 08:00 99.5 110 18 140/79 98 08/23/16 04:05 98.6 103 18 139/92 96 08/22/16 19:40 96.8 130 18 138/82 96 08/22/16 19:29 Room Air 08/22/16 16:50 96.2 122 16 129/92 97 I/O 08/22/16 08/22/16 08/22/16 08/23/16 08/23/16 08/23/16 07:00 15:00 23:00 07:00 15:00 23:00 Intake Total 646 ml 0 ml 229 ml 643 ml Output Total 900 ml 1000 ml 500 ml Balance -254 ml -1000 ml 229 ml 143 ml Intake Oral 0 ml 0 ml 229 ml 0 ml IV Total 646 ml 643 ml Output Urine Total 700 ml 700 ml Gastric Drainage Total 200 ml 300 ml 500 ml # Voids 2 3 3 # Bowel Movements 0 0 7 3 Result Diagram: 08/22/16 0604 08/23/16 0620 Imaging Last Impressions Small Bowel X-Ray 08/22/16 0000 Signed Impressions: Service Date/Time: Monday, August 22, 2016 14:25 - CONCLUSION: Features are typical of small bowel ileus rather than obstruction. There is evidence of enteritis proximally, nonspecific. Fei Gregorio MD Abdomen/Pelvis CT 08/20/16 1850 Signed Impressions: Service Date/Time: Saturday, August 20, 2016 20:31 - CONCLUSION: Ileus versus obstruction has developed, favor the former, and potentially on the basis of acute appendicitis in the proper clinical setting. Fei Gregorio MD Chest X-Ray 08/20/16 0000 Signed Impressions: Service Date/Time: Saturday, August 20, 2016 22:47 - CONCLUSION: NG tube tip is in the upper stomach, sidehole near the GE junction. Distended small bowel. Decompressed stomach. Fei Gregorio MD Objective Remarks GENERAL: NAD SKIN: Warm and dry. HEAD: Normocephalic. EYES: No scleral icterus. No injection or drainage. NECK: Supple, trachea midline. No JVD or lymphadenopathy. CARDIOVASCULAR: Regular rate and rhythm without murmurs, gallops, or rubs. RESPIRATORY: Breath sounds equal bilaterally. No accessory muscle use. GASTROINTESTINAL: Abdomen soft, mildly tender, nondistended. Hypoactive bowel sounds MUSCULOSKELETAL: No cyanosis, or edema. BACK: Nontender without obvious deformity. No CVA tenderness. 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 Flat and upright 08/22/16 reviewed with finding of Features are typical of small bowel ileus rather than obstruction. Continue with Zosyn and Flagyl. Appreciate input from general surgery. GI consultation appreciated and plan for EGD/colonoscopy. Start clear 2-Intractable nausea/vomiting/abdominal pain: Continue anti-emetic, Reglan, nothing by mouth, IV fluid hydration. GI input appreciated and plan for possible EGD/colonoscopy 3-Hypokalemia: Replace electrolyte and monitor 4-Ehler Dhalos syndrome and its associated complications as : Gastroparesis/Corneal damage/Tachycardia/Orthostatic hypotension/Pulmonary blebs/Osteoporosis 5-DVT prophylaxis with SCD's 6-GI prophylaxis: PPI Problem Qualifiers (1) Abdominal pain: Qualified Code: R10.84 - Generalized abdominal pain Devyn Mccauley MD Aug 23, 2016 13:03
[2016-08-23] MEDS ORDERED: PSEUDOEPHEDRINE HCL 30 MG TAB PO PRN (13:15)
[2016-08-23] MEDS ORDERED: POTASSIUM CHLORIDE 25 MEQ EFFERVESCENT TAB PO ONE (13:15)
--- NOTE | 2016-08-23 15:51 | HHI.PR ---
Subjective Subjective Notes Resting in bed Reports several bowel movements since contrast ingested Has been OOB once Objective Vitals/I&O Vital Signs Date Time Temp Pulse Resp B/P Pulse Ox O2 Delivery O2 Flow Rate FiO2 08/23/16 12:00 98.1 105 20 133/89 96 08/22/16 19:29 Room Air Labs Laboratory Tests Test 08/22/16 08/23/16 17:45 06:20 Stool C. difficile Toxin (PCR) NEGATIVE Stl C. difficile Toxin PRESUMPTIVE Epiderm 027 NEGATIVE Sodium Level 143 Potassium Level 3.1 Chloride Level 109 Carbon Dioxide Level 22.2 Anion Gap 12 Blood Urea Nitrogen 6 Creatinine 0.47 Estimat Glomerular Filtration 150 Rate Random Glucose 97 Calcium Level 8.3 Date/Time Procedure Status Source Growth 08/22/16 17:45 Cryptosporidium Exam - Final Complete Stool Stool NEGATIVE - NO CRYPTOSPORIDIUM ANTIGEN... 08/22/16 17:45 Giardia Antigen (EZIO) - Final Complete Stool Stool NEGATIVE - NO GIARDIA ANTIGEN DETECTE... 08/22/16 17:45 Received Stool Stool Pending 08/20/16 19:18 Influenza Types A,B Antigen (EZIO) - Final Complete Nasal Washing NEGATIVE FOR FLU A AND B ANTIGEN.... 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 I reviewed and agree with the findings presented. I attest that I had a [id number] encounter with the patient on the same day, and personally performed and documented my assessment and findings in the medical record. patient improving, abdominal exam better Nevaeh Johnson Aug 23, 2016 15:51 Shane Padilla MD Sep 08, 2016 01:27
[2016-08-23 17:00] VITALS: BP 134/84; PULSE 110; RESP 15; O2SAT 96
[2016-08-23 19:30] VITALS: BP 125/91; PULSE 108; RESP 16; TEMP 97.6; O2SAT 97
[2016-08-23 20:00] VITALS: BP 125/91; PULSE 108; RESP 16; TEMP 97.6; O2SAT 97
[2016-08-23] MEDS: LURASIDONE 40 MG TAB PO SCH (21:00)
[2016-08-24] VITALS: BP 138/97; PULSE 115; RESP 18; TEMP 99; O2SAT 97
[2016-08-24] MEDS: NS + KCL 40 MEQ INJ 1,000 ML IV SCH ×3 (01:25→20:09)
[2016-08-24] MEDS: LORazepam 2 MG/ML VIAL IV PUSH PRN ×5 (01:25→21:41)
[2016-08-24] MEDS: metroNIDAZOLE 500 MG INJ 100 ML IV SCH ×4 (03:23→20:09)
[2016-08-24] MEDS: ONDANSETRON HCL 4 MG/2 ML VIAL IVP PRN ×4 (03:23→21:38)
[2016-08-24] MEDS: MORPHINE SULFATE 4 MG/ML INJ IV PUSH PRN ×3 (03:24→15:25)
[2016-08-24] MEDS: BETHANECHOL CHL 25 MG TAB PO SCH ×3 (06:00→21:41)
[2016-08-24] MEDS: PIPERACIL-TAZO 4.5 GM PREMIX 100 ML IV SCH ×4 (06:04→17:52)
[2016-08-24 06:26] LABS: BICARBONATE 22.9 MEQ/L (21.0-32.0); POTASSIUM 3.3 MEQ/L (3.5-5.1)
[2016-08-24 08:00] VITALS: BP_SYST 142; BP_SYST 150; BP_DIAS 97; BP_DIAS 98; PULSE 103; PULSE 116; RESP 16; TEMP 100.2; TEMP 98.2; O2SAT 96; O2SAT 99
[2016-08-24] MEDS: PANTOPRAZOLE SODIUM 40 MG VIAL IV PUSH SCH (08:44)
[2016-08-24] MEDS: buPROPion HCL 150 MG SUSTAINED RELEASE TAB PO SCH (09:00)
[2016-08-24] MEDS: lamoTRIgine 100 MG TAB PO SCH ×2 (09:00→20:10)
--- NOTE | 2016-08-24 09:45 | HHI.PR ---
Subjective Remarks Follow-up intractable nausea/vomiting/abdominal pain/ileus 08/22/16-patient seen and examined, currently nothing by mouth with NG tube in place. Positive for abdominal pain but denies any emesis or significant nausea 08/23/16-patient seen and examined, still with nausea however no emesis. Also complained of some abdominal pain. Patient also had facial and post nasal drip 08/24/16-patient seen and examined; tolerating NG tube clamping. She did tolerated clear liquid. Complains of dysuria Objective Vitals Vital Signs Date Time Temp Pulse Resp B/P Pulse Ox O2 Delivery O2 Flow Rate FiO2 08/24/16 00:00 99.0 115 18 138/97 97 08/23/16 20:00 97.6 108 16 125/91 97 08/23/16 20:00 97 Room Air 08/23/16 19:30 97.6 108 16 125/91 97 08/23/16 17:00 110 15 134/84 96 08/23/16 12:00 98.1 105 20 133/89 96 I/O 08/23/16 08/23/16 08/23/16 08/24/16 08/24/16 08/24/16 07:00 15:00 23:00 07:00 15:00 23:00 Intake Total 643 ml 90 ml 877 ml 1109 ml Output Total 500 ml 400 ml 350 ml Balance 143 ml -310 ml 527 ml 1109 ml Intake Oral 0 ml 90 ml 380 ml 240 ml IV Total 643 ml 497 ml 869 ml Output Urine Total 350 ml Gastric Drainage Total 500 ml 400 ml # Voids 3 2 2 2 # Bowel Movements 3 2 2 0 Result Diagram: 08/22/16 0604 08/24/16 0536 Objective Remarks GENERAL: NAD SKIN: Warm and dry. HEAD: Normocephalic. EYES: No scleral icterus. No injection or drainage. NECK: Supple, trachea midline. No JVD or lymphadenopathy. CARDIOVASCULAR: Regular rate and rhythm without murmurs, gallops, or rubs. RESPIRATORY: Breath sounds equal bilaterally. No accessory muscle use. GASTROINTESTINAL: Abdomen soft, mildly tender, nondistended. Positive bowel sounds MUSCULOSKELETAL: No cyanosis, or edema. BACK: Nontender without obvious deformity. No CVA tenderness. 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 Flat and upright 08/22/16 reviewed with finding of Features are typical of small bowel ileus rather than obstruction. Tolerated clears and now advance diet as tolerated. Continue with Zosyn and Flagyl. Appreciate input from general surgery. GI consultation appreciated and plan for EGD/colonoscopy. 2-Intractable nausea/vomiting/abdominal pain: Improving, Continue anti-emetic, Reglan, clears, IV fluid hydration. GI input appreciated and plan for possible EGD/colonoscopy 3-Hypokalemia: Replace electrolyte and monitor 4-Ehler Dhalos syndrome and its associated complications as : Gastroparesis/Corneal damage/Tachycardia/Orthostatic hypotension/Pulmonary blebs/Osteoporosis 5-DVT prophylaxis with SCD's 6-GI prophylaxis: PPI 7-Dysuria: Check UA and treat accordingly Problem Qualifiers (1) Abdominal pain: Qualified Code: R10.84 - Generalized abdominal pain Devyn Mccauley MD Aug 24, 2016 09:45
[2016-08-24] MEDS ORDERED: POTASSIUM CHLORIDE 25 MEQ EFFERVESCENT TAB PO ONE (10:00)
[2016-08-24 11:17] LABS: BLOOD, URINE MOD (NEG); COMMENT (UR) CULT NOT INDICATED; CULTURE IF INDICATED CULT NOT INDICATED; GLUCOSE,URINE NEG (NEG); KETONE, URINE 150 mg/dL (NEG); MUCUS URINE FEW /lpf (OCC); NITRITE,URINE NEG (NEG); PH, URINE 5.5 (5.0-8.5); SQUAMOUS EPITHELIAL CELL URINE 3 /hpf (0-5); URINE COLOR YELLOW (YELLW/STRAW)
--- NOTE | 2016-08-24 12:10 | HHI.PR ---
Subjective Subjective Notes Resting in bed Feels better and tolerating clear liquids Objective Vitals/I&O Vital Signs Date Time Temp Pulse Resp B/P Pulse Ox O2 Delivery O2 Flow Rate FiO2 08/24/16 08:00 100.2 116 16 142/97 96 08/23/16 20:00 Room Air Labs Laboratory Tests Test 08/24/16 08/24/16 05:36 11:00 Sodium Level 142 Potassium Level 3.3 Chloride Level 108 Carbon Dioxide Level 22.9 Anion Gap 11 Blood Urea Nitrogen 3 Creatinine 0.44 Estimat Glomerular Filtration 162 Rate Random Glucose 107 Calcium Level 8.1 Urine Color YELLOW Urine Turbidity CLEAR Urine pH 5.5 Urine Specific [place] 1.020 Urine Protein NEG Urine Glucose (UA) NEG Urine Ketones 150 Urine Occult Blood MOD Urine Nitrite NEG Urine Bilirubin NEG Urine Urobilinogen LESS THAN 2.0 Urine Leukocyte Esterase SMALL Urine RBC 24 Urine WBC 6 Urine Squamous Epithelial 3 Cells Urine Amorphous Sediment RARE Urine Mucus FEW Microscopic Urinalysis Comment CULT NOT INDICATED Date/Time Procedure Status Source Growth 08/22/16 17:45 Cryptosporidium Exam - Final Complete Stool Stool NEGATIVE - NO CRYPTOSPORIDIUM ANTIGEN... 08/22/16 17:45 Giardia Antigen (EZIO) - Final Complete Stool Stool NEGATIVE - NO GIARDIA ANTIGEN DETECTE... 08/22/16 17:45 - Final Complete Stool Stool 08/20/16 19:18 Influenza Types A,B Antigen (EZIO) - Final Complete Nasal Washing NEGATIVE FOR FLU A AND B ANTIGEN.... 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 I reviewed and agree with the findings presented. I attest that I had a [id number] encounter with the patient on the same day, and personally performed and documented my assessment and findings in the medical record. feels better, bowel function, tolerating PO some but still with some distension , continue to follow Nevaeh Johnson Aug 24, 2016 12:10 Shane Padilla MD Sep 08, 2016 01:28
[2016-08-24] MEDS: SODIUM CHLORIDE 0.9% FLUSH 5 ML FLUSH FLUSH SCH ×2 (12:33→20:10)
--- NOTE | 2016-08-24 13:01 | HHI.GIFU ---
Subjective Remarks States that she is feeling better, tolerating the clear liquids with NGT clamped , but afraid to have this removed. According to the EMR, the patient has refused her bethanechol and not taken one dose. However, when asked about this , she denies and states she has been taking it. Passing stool/gas. Distention improved. D/W patient that we can advance her diet to full liquids. Pt hesitant and states that other physicians are telling her that "she is progressing too fast" and therefore she thinks she should stay on clear liquids today. She does not want the NGT removed even though it has been clamped since yesterday at 3pm because she is afraid of needing it placed again. Objective Vitals I&O Vital Signs Date Time Temp Pulse Resp B/P Pulse Ox O2 Delivery O2 Flow Rate FiO2 08/24/16 08:00 100.2 116 16 142/97 96 08/24/16 00:00 99.0 115 18 138/97 97 08/23/16 20:00 97.6 108 16 125/91 97 08/23/16 20:00 97 Room Air 08/23/16 19:30 97.6 108 16 125/91 97 08/23/16 17:00 110 15 134/84 96 I/O 08/23/16 08/23/16 08/23/16 08/24/16 08/24/16 08/24/16 07:00 15:00 23:00 07:00 15:00 23:00 Intake Total 643 ml 90 ml 877 ml 1109 ml Output Total 500 ml 400 ml 350 ml Balance 143 ml -310 ml 527 ml 1109 ml Intake Oral 0 ml 90 ml 380 ml 240 ml IV Total 643 ml 497 ml 869 ml Output Urine Total 350 ml Gastric Drainage Total 500 ml 400 ml # Voids 3 2 2 2 # Bowel Movements 3 2 2 0 Laboratory Laboratory Tests Test 08/24/16 08/24/16 05:36 11:00 Sodium Level 142 Potassium Level 3.3 Chloride Level 108 Carbon Dioxide Level 22.9 Anion Gap 11 Blood Urea Nitrogen 3 Creatinine 0.44 Estimat Glomerular Filtration 162 Rate Random Glucose 107 Calcium Level 8.1 Urine Color YELLOW Urine Turbidity CLEAR Urine pH 5.5 Urine Specific Bryce 1.020 Urine Protein NEG Urine Glucose (UA) NEG Urine Ketones 150 Urine Occult Blood MOD Urine Nitrite NEG Urine Bilirubin NEG Urine Urobilinogen LESS THAN 2.0 Urine Leukocyte Esterase SMALL Urine RBC 24 Urine WBC 6 Urine Squamous Epithelial 3 Cells Urine Amorphous Sediment RARE Urine Mucus FEW Microscopic Urinalysis Comment CULT NOT INDICATED Date/Time Procedure Status Source Growth 08/22/16 17:45 Cryptosporidium Exam - Final Complete Stool Stool NEGATIVE - NO CRYPTOSPORIDIUM ANTIGEN... 08/22/16 17:45 Giardia Antigen (EZIO) - Final Complete Stool Stool NEGATIVE - NO GIARDIA ANTIGEN DETECTE... 08/22/16 17:45 - Final Complete Stool Stool 08/20/16 19:18 Influenza Types A,B Antigen (EZIO) - Final Complete Nasal Washing NEGATIVE FOR FLU A AND B ANTIGEN.... Imaging Last Impressions Small Bowel X-Ray 08/22/16 0000 Signed Impressions: Service Date/Time: Monday, August 22, 2016 14:25 - CONCLUSION: Features are typical of small bowel ileus rather than obstruction. There is evidence of enteritis proximally, nonspecific. Fei Gregorio MD Abdomen/Pelvis CT 08/20/16 1850 Signed Impressions: Service Date/Time: Saturday, August 20, 2016 20:31 - CONCLUSION: Ileus versus obstruction has developed, favor the former, and potentially on the basis of acute appendicitis in the proper clinical setting. Fei Gregorio MD Chest X-Ray 08/20/16 0000 Signed Impressions: Service Date/Time: Saturday, August 20, 2016 22:47 - CONCLUSION: NG tube tip is in the upper stomach, sidehole near the GE junction. Distended small bowel. Decompressed stomach. Fei Gregorio MD Physical Exam HEENT: Normocephalic; atraumatic; no jaundice. CHEST: CTA CARDIAC: RRR ABDOMEN: Soft, nondistended, mild diffuse tenderness; no hepatosplenomegaly; bowel sounds are present in all four quadrants. NGT clamped. EXTREMITIES: No clubbing, cyanosis, or edema. SKIN: Generalize pallor ACOUSTICAL CARPENTER: No focal deficits; alert and oriented times three. Assessment and Plan Plan ASSESSMENT: - Ileus. N/V/D with abdominal pain. Pt with hx of SIBO (2006)- given Xifaxan, no improvement and Gastroparesis 2006 (diet modification, zofran, phenergan prn) . Last EGD to r/o celiac dz 2006 negative, Colonoscopy 2005- internal hemorrhoids. CT scan without IV contrast and this revealed an ileus versus obstruction has developed, favor the former, and potentially on the basis of acute appendicitis in the proper clinical setting. 1. GS following, requested GI/ DIRECTOR FACILITIES MAINTENANCE evaluation. Stool studies enteric pathogens pending. Small Bowel X-Ray (08/22/16)----> Features are typical of small bowel ileus rather than obstruction. There is evidence of enteritis proximally, nonspecific. States that she is feeling better, tolerating the clear liquids with NGT clamped since 3pm yesterday, but does not want to have this removed. According to the EMR, the patient has refused her bethanechol and not taken one dose. However, when asked about this, she denies and states she has been taking it. D/W patient rationale for this med and encouraged her to try it. Passing stool/gas. Distention improved. D/W patient that we can advance her diet to full liquids. Pt hesitant and states that other physicians are telling her that "she is progressing too fast" and therefore she thinks she should stay on clear liquids today. She states specifically that Dr. Chirinos told her that she needed to stay on the clear liquid diet longer. - Chronic constipation. Moving bowels, passing flatus. - Gastroparesis. States she has been on diet modification, zofran, phenergan prn - Severe hypokalemia, Ehler Dhalos syndrome. per primary PLAN: - Pt refusing diet to be advanced to full liquids, wants to stay on clears - Okay to d/c NGT from GI standpoint - Encouraged patient to try bethanechol, as she has refused this and has not taken one dose. - Cont. Zosyn, Flagyl - Consider EGD/Colonoscopy once above issues resolve. - Try to decrease narcotic use, as this may be contributing to her ileus. - GS following - DIRECTOR FACILITIES MAINTENANCE consulted - Supportive care - Further recommendations to follow based on results of above - Pt seen and examined by Dr. Wells and myself and this note is written on his behalf Sandra Parmar Aug 24, 2016 13:01
[2016-08-24 16:00] VITALS: BP 148/101; PULSE 98; RESP 16; TEMP 99.3; O2SAT 98
[2016-08-24 20:00] VITALS: BP 166/57; PULSE 116; RESP 20; TEMP 96.7; O2SAT 98
[2016-08-24] MEDS: LURASIDONE 40 MG TAB PO SCH (20:10)
[2016-08-25] VITALS: BP 140/95; PULSE 118; RESP 20; TEMP 100.5; O2SAT 95
[2016-08-25] MEDS: PIPERACIL-TAZO 4.5 GM PREMIX 100 ML IV SCH ×5 (00:23→23:20)
[2016-08-25 00:55] VITALS: PULSE 108; TEMP 99.9
[2016-08-25] MEDS: LORazepam 2 MG/ML VIAL IV PUSH PRN ×5 (03:02→23:20)
[2016-08-25] MEDS: MORPHINE SULFATE 4 MG/ML INJ IV PUSH PRN ×4 (03:02→20:20)
[2016-08-25] MEDS: metroNIDAZOLE 500 MG INJ 100 ML IV SCH ×4 (03:03→20:19)
[2016-08-25] MEDS: NS + KCL 40 MEQ INJ 1,000 ML IV SCH ×4 (05:22→23:21)
[2016-08-25] MEDS: BETHANECHOL CHL 25 MG TAB PO SCH ×4 (05:23→22:00)
[2016-08-25 06:04] LABS: BICARBONATE 24.5 MEQ/L (21.0-32.0); POTASSIUM 3.3 MEQ/L (3.5-5.1)
[2016-08-25] MEDS: ONDANSETRON HCL 4 MG/2 ML VIAL IVP PRN ×3 (07:07→20:20)
[2016-08-25 08:00] VITALS: BP 124/88; PULSE 124; RESP 18; TEMP 100.8; O2SAT 96
[2016-08-25] MEDS: SODIUM CHLORIDE 0.9% FLUSH 5 ML FLUSH FLUSH SCH ×2 (09:11→20:19)
[2016-08-25] MEDS: buPROPion HCL 150 MG SUSTAINED RELEASE TAB PO SCH (09:13)
[2016-08-25] MEDS: lamoTRIgine 100 MG TAB PO SCH ×2 (09:13→20:30)
[2016-08-25] MEDS: PANTOPRAZOLE SODIUM 40 MG VIAL IV PUSH SCH (09:14)
[2016-08-25 12:00] VITALS: BP 128/84; PULSE 121; RESP 18; TEMP 99.5; O2SAT 96
[2016-08-25] MEDS: SODIUM CHLORIDE 0.9% FLUSH 5 ML FLUSH FLUSH PRN ×3 (12:20→18:53)
--- NOTE | 2016-08-25 12:51 | HHI.PR ---
Subjective Remarks Follow-up intractable nausea/vomiting/abdominal pain/ileus 08/22/16-patient seen and examined, currently nothing by mouth with NG tube in place. Positive for abdominal pain but denies any emesis or significant nausea 08/23/16-patient seen and examined, still with nausea however no emesis. Also complained of some abdominal pain. Patient also had facial and post nasal drip 08/24/16-patient seen and examined; tolerating NG tube clamping. She did tolerated clear liquid. Complains of dysuria 08/25/16-patient seen and examined, NG tube was removed last night, patient spiking fevers. He tolerates clears without any significant nausea. Objective Vitals Vital Signs Date Time Temp Pulse Resp B/P Pulse Ox O2 Delivery O2 Flow Rate FiO2 08/25/16 12:04 Room Air 08/25/16 08:00 100.8 124 18 124/88 96 08/25/16 00:55 99.9 108 08/25/16 00:00 100.5 118 20 140/95 95 08/24/16 20:00 96.7 116 20 166/57 98 08/24/16 20:00 98 Room Air 08/24/16 16:00 99.3 98 16 148/101 98 I/O 08/24/16 08/24/16 08/24/16 08/25/16 08/25/16 08/25/16 07:00 15:00 23:00 07:00 15:00 23:00 Intake Total 1109 ml 889 ml 1085 ml Balance 1109 ml 889 ml 1085 ml Intake Oral 240 ml 240 ml IV Total 869 ml 889 ml 845 ml # Voids 2 3 3 # Bowel Movements 0 1 3 Result Diagram: 08/22/16 0604 08/25/16 0452 Imaging Last Impressions Small Bowel X-Ray 08/22/16 0000 Signed Impressions: Service Date/Time: Monday, August 22, 2016 14:25 - CONCLUSION: Features are typical of small bowel ileus rather than obstruction. There is evidence of enteritis proximally, nonspecific. Fei Gregorio MD Abdomen/Pelvis CT 08/20/16 1850 Signed Impressions: Service Date/Time: Saturday, August 20, 2016 20:31 - CONCLUSION: Ileus versus obstruction has developed, favor the former, and potentially on the basis of acute appendicitis in the proper clinical setting. Fei Gregorio MD Chest X-Ray 08/20/16 0000 Signed Impressions: Service Date/Time: Saturday, August 20, 2016 22:47 - CONCLUSION: NG tube tip is in the upper stomach, sidehole near the GE junction. Distended small bowel. Decompressed stomach. Fei Gregorio MD Objective Remarks GENERAL: NAD SKIN: Warm and dry. HEAD: Normocephalic. EYES: No scleral icterus. No injection or drainage. NECK: Supple, trachea midline. No JVD or lymphadenopathy. CARDIOVASCULAR: Regular rate and rhythm without murmurs, gallops, or rubs. RESPIRATORY: Breath sounds equal bilaterally. No accessory muscle use. GASTROINTESTINAL: Abdomen soft, mildly tender, nondistended. Positive bowel sounds MUSCULOSKELETAL: No cyanosis, or edema. BACK: Nontender without obvious deformity. No CVA tenderness. 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 Flat and upright 08/22/16 reviewed with finding of Features are typical of small bowel ileus rather than obstruction. Tolerated clears and now advanced to Full liquid. Continue with Zosyn and Flagyl. Appreciate input from general surgery. GI consultation appreciated and plan for EGD/colonoscopy when stable. 2-Intractable nausea/vomiting/abdominal pain: Improving, Continue anti-emetic, Reglan, clears, IV fluid hydration. GI input appreciated and plan for possible EGD/colonoscopy 3-Hypokalemia: Replace electrolyte and monitor 4-Ehler Dhalos syndrome and its associated complications as : Gastroparesis/Corneal damage/Tachycardia/Orthostatic hypotension/Pulmonary blebs/Osteoporosis 5-DVT prophylaxis with SCD's 6-GI prophylaxis: PPI 7-Dysuria: UA negative 8-Febrile episodes: Check CXR Problem Qualifiers (1) Abdominal pain: Qualified Code: R10.84 - Generalized abdominal pain Devyn Mccauley MD Aug 25, 2016 12:51
--- NOTE | 2016-08-25 14:51 | RADRPT ---
EXAM DATE/TIME: 08/25/2016 13:08 [facility] COMPARISON: CHEST SINGLE AP, August 20, 2016, 22:47. INDICATIONS : Fever starting today MEDICAL HISTORY : Hypertension. Asthma SURGICAL HISTORY : None. ENCOUNTER: Initial ACUITY: 1 day PAIN SCORE: 0/10 LOCATION: Bilateral chest FINDINGS: Single AP view of the chest. Lateral left lower lobe consolidation is noted. Possible small left pleu ral effusion. No evidence of pneumothorax. Cardiomediastinal silhouette within normal notes. CONCLUSION: Lateral left lower lobe pulmonary consolidation and possible small left pleural effus ion. Long Nayak MD on August 25, 2016 at 14:49 Board Certified Radiologist. This report was verified electronically.
[2016-08-25 16:00] VITALS: BP 122/90; PULSE 112; RESP 18; TEMP 99.8; O2SAT 99
--- NOTE | 2016-08-25 16:18 | HHI.GIFU ---
Subjective Remarks Resting in bed. Tolerating full liquids, but having difficulty finding vegetarian/dairy free options on menu. States she feels a little bloated today , but pain has improved. Loose bowel movement this am. Objective Vitals I&O Vital Signs Date Time Temp Pulse Resp B/P Pulse Ox O2 Delivery O2 Flow Rate FiO2 08/25/16 12:04 Room Air 08/25/16 12:00 99.5 121 18 128/84 96 08/25/16 08:00 100.8 124 18 124/88 96 08/25/16 00:55 99.9 108 08/25/16 00:00 100.5 118 20 140/95 95 08/24/16 20:00 96.7 116 20 166/57 98 08/24/16 20:00 98 Room Air I/O 08/24/16 08/24/16 08/24/16 08/25/16 08/25/16 08/25/16 07:00 15:00 23:00 07:00 15:00 23:00 Intake Total 1109 ml 889 ml 1085 ml Balance 1109 ml 889 ml 1085 ml Intake Oral 240 ml 240 ml IV Total 869 ml 889 ml 845 ml # Voids 2 3 3 # Bowel Movements 0 1 3 Laboratory Laboratory Tests Test 08/25/16 04:52 Sodium Level 137 Potassium Level 3.3 Chloride Level 101 Carbon Dioxide Level 24.5 Anion Gap 12 Blood Urea Nitrogen 2 Creatinine 0.41 Estimat Glomerular Filtration 176 Rate Random Glucose 78 Calcium Level 8.3 Date/Time Procedure Status Source Growth 08/22/16 17:45 Cryptosporidium Exam - Final Complete Stool Stool NEGATIVE - NO CRYPTOSPORIDIUM ANTIGEN... 08/22/16 17:45 Giardia Antigen (EZIO) - Final Complete Stool Stool NEGATIVE - NO GIARDIA ANTIGEN DETECTE... 08/22/16 17:45 - Final Complete Stool Stool 08/20/16 19:18 Influenza Types A,B Antigen (EZOI) - Final Complete Nasal Washing NEGATIVE FOR FLU A AND B ANTIGEN.... Imaging Last Impressions Chest X-Ray 08/25/16 0000 Signed Impressions: Service Date/Time: Thursday, August 25, 2016 13:08 - CONCLUSION: Lateral left lower lobe pulmonary consolidation and possible small left pleural effusion. Long Nayak MD Small Bowel X-Ray 08/22/16 0000 Signed Impressions: Service Date/Time: Monday, August 22, 2016 14:25 - CONCLUSION: Features are typical of small bowel ileus rather than obstruction. There is evidence of enteritis proximally, nonspecific. Fei Gregorio MD Abdomen/Pelvis CT 08/20/16 1850 Signed Impressions: Service Date/Time: Saturday, August 20, 2016 20:31 - CONCLUSION: Ileus versus obstruction has developed, favor the former, and potentially on the basis of acute appendicitis in the proper clinical setting. Fei Gregorio MD Physical Exam HEENT: Normocephalic; atraumatic; no jaundice. CHEST: CTA CARDIAC: RRR ABDOMEN: Soft, nondistended, mild diffuse tenderness; no hepatosplenomegaly; bowel sounds are present in all four quadrants. EXTREMITIES: No clubbing, cyanosis, or edema. SKIN: Generalize pallor PATCH DRILLER: No focal deficits; alert and oriented times three. Assessment and Plan Plan ASSESSMENT: - Ileus. N/V/D with abdominal pain. Pt with hx of SIBO (2006)- given Xifaxan, no improvement and Gastroparesis 2006 (diet modification, zofran, phenergan prn) . Last EGD to r/o celiac dz 2006 negative, Colonoscopy 2005- internal hemorrhoids. CT scan without IV contrast and this revealed an ileus versus obstruction has developed, favor the former, and potentially on the basis of acute appendicitis in the proper clinical setting. 1. GS following, requested GI/ SPECIALTY FOODS COOK evaluation. Stool studies enteric pathogens pending. Small Bowel X-Ray (08/22/16)----> Features are typical of small bowel ileus rather than obstruction. There is evidence of enteritis proximally, nonspecific. NGT out. Tolerating full liquids. Pain improved. + BM. - Chronic constipation. Moving bowels, passing flatus. - Gastroparesis. States she has been on diet modification, zofran, phenergan prn - Severe hypokalemia, Ehler Dhalos syndrome. per primary PLAN: - Full liquids, vegetarian/lactose free - Cont. Bethanechol - Cont. PPI - Cont. Zosyn, Flagyl - Consider EGD/Colonoscopy once above issues resolve. - Try to decrease narcotic use, as this may be contributing to her ileus. - GS following - Supportive care - Further recommendations to follow based on results of above - Pt seen and examined by Dr. Wells and myself and this note is written on his behalf Sandra Parmar Aug 25, 2016 16:18
[2016-08-25 20:00] VITALS: BP 130/82; PULSE 114; RESP 16; TEMP 98.7; O2SAT 97
[2016-08-25] MEDS: LURASIDONE 40 MG TAB PO SCH (20:30)
--- NOTE | 2016-08-25 22:34 | HHI.PR ---
Subjective Subjective Notes feels a little better poor PO Objective Vitals/I&O Vital Signs Date Time Temp Pulse Resp B/P Pulse Ox O2 Delivery O2 Flow Rate FiO2 08/25/16 20:00 98.7 114 16 130/82 97 08/25/16 12:04 Room Air Labs Laboratory Tests Test 08/25/16 04:52 Sodium Level 137 Potassium Level 3.3 Chloride Level 101 Carbon Dioxide Level 24.5 Anion Gap 12 Blood Urea Nitrogen 2 Creatinine 0.41 Estimat Glomerular Filtration 176 Rate Random Glucose 78 Calcium Level 8.3 Date/Time Procedure Status Source Growth 08/22/16 17:45 Cryptosporidium Exam - Final Complete Stool Stool NEGATIVE - NO CRYPTOSPORIDIUM ANTIGEN... 08/22/16 17:45 Giardia Antigen (EZIO) - Final Complete Stool Stool NEGATIVE - NO GIARDIA ANTIGEN DETECTE... 08/22/16 17:45 - Final Complete Stool Stool Abdomen: Non-distended Narrative Exam tenderness, no peritonitis A/P Assessment and Plan 36yo female with ileus, recurrent chronic, stable. - NG out, tolerating some fulls but with increased diarrhea. - no surgical intervention Shane Padilla MD Aug 25, 2016 22:34
[2016-08-26] VITALS: BP 132/92; PULSE 104; RESP 16; TEMP 99.7; O2SAT 97
[2016-08-26] MEDS: metroNIDAZOLE 500 MG INJ 100 ML IV SCH ×4 (02:51→22:50)
[2016-08-26] MEDS: MORPHINE SULFATE 4 MG/ML INJ IV PUSH PRN ×4 (02:52→21:28)
[2016-08-26] MEDS: ONDANSETRON HCL 4 MG/2 ML VIAL IVP PRN ×4 (02:52→21:27)
[2016-08-26] MEDS: BETHANECHOL CHL 25 MG TAB PO SCH ×3 (05:06→21:26)
[2016-08-26] MEDS: LORazepam 2 MG/ML VIAL IV PUSH PRN ×4 (05:18→23:51)
[2016-08-26] MEDS: PIPERACIL-TAZO 4.5 GM PREMIX 100 ML IV SCH ×3 (05:18→17:49)
[2016-08-26 08:00] VITALS: BP 131/88; PULSE 118; RESP 18; TEMP 99.3; O2SAT 96
[2016-08-26] MEDS: LEVOFLOXACIN 750 MG PREMIX INJ 150 ML IV SCH (08:38)
[2016-08-26] MEDS: lamoTRIgine 100 MG TAB PO SCH ×3 (08:38→21:00)
[2016-08-26] MEDS: PANTOPRAZOLE SODIUM 40 MG VIAL IV PUSH SCH (08:38)
[2016-08-26] MEDS: NS + KCL 40 MEQ INJ 1,000 ML IV SCH ×2 (08:39→17:49)
[2016-08-26] MEDS: SODIUM CHLORIDE 0.9% FLUSH 5 ML FLUSH FLUSH SCH ×2 (08:39→21:00)
[2016-08-26] MEDS: LACTOBACILLUS ACIDOPHILUS TAB PO SCH ×2 (08:39→21:00)
[2016-08-26] MEDS: buPROPion HCL 150 MG SUSTAINED RELEASE TAB PO SCH ×2 (08:39→08:45)
--- NOTE | 2016-08-26 11:07 | HHI.PR ---
Subjective Remarks Follow-up intractable nausea/vomiting/abdominal pain/ileus 08/22/16-patient seen and examined, currently nothing by mouth with NG tube in place. Positive for abdominal pain but denies any emesis or significant nausea 08/23/16-patient seen and examined, still with nausea however no emesis. Also complained of some abdominal pain. Patient also had facial and post nasal drip 08/24/16-patient seen and examined; tolerating NG tube clamping. She did tolerated clear liquid. Complains of dysuria 08/25/16-patient seen and examined, NG tube was removed last night, patient spiking fevers. He tolerates clears without any significant nausea. 08/26/16-patient seen and examined him a she had multiple episode of diarrhea yesterday however resolved 8 hours. She also had emesis but currently without any symptoms. Checks x-ray with finding of pulmonary infiltrate . MAXIMUM TEMPERATURE 99.8 at 4 PM however currently afebrile Objective Vitals Vital Signs Date Time Temp Pulse Resp B/P Pulse Ox O2 Delivery O2 Flow Rate FiO2 08/26/16 08:00 99.3 118 18 131/88 96 08/26/16 00:00 99.7 104 16 132/92 97 08/25/16 20:00 98.7 114 16 130/82 97 08/25/16 20:00 97 Room Air 08/25/16 16:00 99.8 112 18 122/90 99 08/25/16 12:04 Room Air 08/25/16 12:00 99.5 121 18 128/84 96 I/O 08/25/16 08/25/16 08/25/16 08/26/16 08/26/16 08/26/16 07:00 15:00 23:00 07:00 15:00 23:00 Intake Total 1085 ml 720 ml 480 ml 2713 ml Balance 1085 ml 720 ml 480 ml 2713 ml Intake Oral 240 ml 720 ml 480 ml 480 ml IV Total 845 ml 2233 ml # Voids 3 4 2 7 # Bowel Movements 3 0 4 Result Diagram: 08/22/16 0604 08/25/16 0452 Imaging Last Impressions Chest X-Ray 08/25/16 0000 Signed Impressions: Service Date/Time: Thursday, August 25, 2016 13:08 - CONCLUSION: Lateral left lower lobe pulmonary consolidation and possible small left pleural effusion. Long Nayak MD Small Bowel X-Ray 08/22/16 0000 Signed Impressions: Service Date/Time: Monday, August 22, 2016 14:25 - CONCLUSION: Features are typical of small bowel ileus rather than obstruction. There is evidence of enteritis proximally, nonspecific. Fei Gregorio MD Abdomen/Pelvis CT 08/20/16 1850 Signed Impressions: Service Date/Time: Saturday, August 20, 2016 20:31 - CONCLUSION: Ileus versus obstruction has developed, favor the former, and potentially on the basis of acute appendicitis in the proper clinical setting. Fei Gregorio MD Objective Remarks GENERAL: NAD SKIN: Warm and dry. HEAD: Normocephalic. EYES: No scleral icterus. No injection or drainage. NECK: Supple, trachea midline. No JVD or lymphadenopathy. CARDIOVASCULAR: Regular rate and rhythm without murmurs, gallops, or rubs. RESPIRATORY: Breath sounds equal bilaterally. No accessory muscle use. GASTROINTESTINAL: Abdomen soft, mildly tender, nondistended. Positive bowel sounds MUSCULOSKELETAL: No cyanosis, or edema. BACK: Nontender without obvious deformity. No CVA tenderness. 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 Flat and upright 08/22/16 reviewed with finding of Features are typical of small bowel ileus rather than obstruction. Full liquid. Continue with Zosyn and Flagyl. Appreciate input from general surgery. GI consultation appreciated and plan for EGD/colonoscopy when stable. 2-Intractable nausea/vomiting/abdominal pain: Improving, Continue anti-emetic, Reglan, poorly quit, IV fluid hydration. GI input appreciated and plan for possible EGD/colonoscopy 3-Hypokalemia: Replace electrolyte and monitor 4-Ehler Dhalos syndrome and its associated complications as : Gastroparesis/Corneal damage/Tachycardia/Orthostatic hypotension/Pulmonary blebs/Osteoporosis 5-DVT prophylaxis with SCD's 6-GI prophylaxis: PPI 7-Dysuria: UA negative 8-HCAP: Checks x-ray 08/25/16 with finding of Lateral left lower lobe pulmonary consolidation. Currently on Zosyn and Flagyl, add Levaquin and monitor sputum and blood culture. Incentive spirometry at bedside and maintain oxygen saturation above 92% Problem Qualifiers (1) Abdominal pain: Qualified Code: R10.84 - Generalized abdominal pain Devyn Mccauley MD Aug 26, 2016 11:07
[2016-08-26] MEDS ORDERED: RESP: ALBUTEROL 2.5 MG/IPRATROPIUM 0.5 MG NEB (PRN) NEB (11:15)
[2016-08-26 12:00] VITALS: BP 119/82; PULSE 109; RESP 18; TEMP 99.4; O2SAT 96
--- NOTE | 2016-08-26 15:09 | HHI.GIFU ---
Subjective Remarks 36 yo female resting in bed in no apparent distress. Reports she has had multiple episodes of diarrhea last night and today. Has abdominal pain and nausea, no emesis. Objective Vitals I&O Vital Signs Date Time Temp Pulse Resp B/P Pulse Ox O2 Delivery O2 Flow Rate FiO2 08/26/16 12:00 99.4 109 18 119/82 96 08/26/16 08:00 99.3 118 18 131/88 96 08/26/16 00:00 99.7 104 16 132/92 97 08/25/16 20:00 98.7 114 16 130/82 97 08/25/16 20:00 97 Room Air 08/25/16 16:00 99.8 112 18 122/90 99 I/O 08/25/16 08/25/16 08/25/16 08/26/16 08/26/16 08/26/16 07:00 15:00 23:00 07:00 15:00 23:00 Intake Total 1085 ml 720 ml 480 ml 2713 ml Balance 1085 ml 720 ml 480 ml 2713 ml Intake Oral 240 ml 720 ml 480 ml 480 ml IV Total 845 ml 2233 ml # Voids 3 4 2 7 # Bowel Movements 3 0 4 Laboratory Date/Time Procedure Status Source Growth 08/22/16 17:45 Cryptosporidium Exam - Final Complete Stool Stool NEGATIVE - NO CRYPTOSPORIDIUM ANTIGEN... 08/22/16 17:45 Giardia Antigen (EZIO) - Final Complete Stool Stool NEGATIVE - NO GIARDIA ANTIGEN DETECTE... 08/22/16 17:45 - Final Complete Stool Stool Imaging Last Impressions Chest X-Ray 08/25/16 0000 Signed Impressions: Service Date/Time: Thursday, August 25, 2016 13:08 - CONCLUSION: Lateral left lower lobe pulmonary consolidation and possible small left pleural effusion. Long Nayak MD Small Bowel X-Ray 08/22/16 0000 Signed Impressions: Service Date/Time: Monday, August 22, 2016 14:25 - CONCLUSION: Features are typical of small bowel ileus rather than obstruction. There is evidence of enteritis proximally, nonspecific. Fei Gregorio MD Abdomen/Pelvis CT 08/20/16 1850 Signed Impressions: Service Date/Time: Saturday, August 20, 2016 20:31 - CONCLUSION: Ileus versus obstruction has developed, favor the former, and potentially on the basis of acute appendicitis in the proper clinical setting. Fei Gregorio MD Physical Exam HEENT: PERRLA. Normocephalic; atraumatic; no jaundice. CHEST: CTA CARDIAC: RRR ABDOMEN: Soft, nondistended, mild diffuse tenderness; no hepatosplenomegaly; bowel sounds x 4 quadrants EXTREMITIES: No clubbing, cyanosis, or edema. SKIN: Generalize pallor SUPERVISOR ORE DRESSING: No focal deficits; A&O x3. Assessment and Plan Plan ASSESSMENT: - Ileus. N/V/D with abdominal pain. Pt with hx of SIBO (2006)- given Xifaxan, no improvement and Gastroparesis 2006 (diet modification, zofran, phenergan prn) . Last EGD to r/o celiac dz 2006 negative, Colonoscopy 2005- internal hemorrhoids. CT scan without IV contrast and this revealed an ileus versus obstruction has developed, favor the former, and potentially on the basis of acute appendicitis in the proper clinical setting. 1. GS following, requested GI/ FARMWORKER MACHINE evaluation. Stool studies enteric pathogens pending. Small Bowel X-Ray (08/22/16)----> Features are typical of small bowel ileus rather than obstruction. There is evidence of enteritis proximally, nonspecific. Tolerating full liquids. Pain improved. + BM. - Chronic constipation. Moving bowels, passing flatus. Diarrhea - Gastroparesis. States she has been on diet modification, zofran, phenergan prn - Severe hypokalemia, K 3.3, Ehler Dhalos syndrome, per primary PLAN: - Full liquids, vegetarian/lactose free - Cont. Bethanechol - Cont. PPI - Cont. Zosyn, Flagyl - Consider EGD/Colonoscopy once above issues resolve, patient declining for tomorrow. - Try to decrease narcotic use, as this may be contributing to her ileus. - GS following - Supportive care - Further recommendations to follow based on results of above Pt seen and examined by Dr. Wells and myself and this note is written on his behalf Odalys Lunsford Aug 26, 2016 15:08
[2016-08-26 16:00] VITALS: BP 119/86; PULSE 119; RESP 18; TEMP 97.9; O2SAT 96
[2016-08-26 20:05] VITALS: BP 133/89; PULSE 94; RESP 18; TEMP 97.7; O2SAT 97
[2016-08-26] MEDS: LURASIDONE 40 MG TAB PO SCH (21:00)
[2016-08-27 00:01] VITALS: BP 135/93; PULSE 92; RESP 18; TEMP 97.7; O2SAT 98
[2016-08-27] MEDS: PIPERACIL-TAZO 4.5 GM PREMIX 100 ML IV SCH ×3 (00:41→12:44)
[2016-08-27] MEDS: ONDANSETRON HCL 4 MG/2 ML VIAL IVP PRN (03:32)
[2016-08-27] MEDS: MORPHINE SULFATE 4 MG/ML INJ IV PUSH PRN (03:32)
[2016-08-27] MEDS: metroNIDAZOLE 500 MG INJ 100 ML IV SCH ×3 (03:32→15:00)
[2016-08-27] MEDS: LORazepam 2 MG/ML VIAL IV PUSH PRN ×2 (03:58→12:43)
[2016-08-27] MEDS: NS + KCL 40 MEQ INJ 1,000 ML IV SCH ×2 (04:02→09:53)
[2016-08-27] MEDS: BETHANECHOL CHL 25 MG TAB PO SCH (06:00)
[2016-08-27 07:27] LABS: BICARBONATE 26.1 MEQ/L (21.0-32.0); POTASSIUM 3.6 MEQ/L (3.5-5.1)
[2016-08-27 07:30] LABS: AUTOMATED NEUTROPHIL # 7.4 TH/MM3 (1.8-7.7); BASOPHIL % 0.3 % (0.0-2.0); EOSINOPHIL # 0.1 TH/MM3 (0-0.4); EOSINOPHIL % 0.9 % (0.0-4.0); HEMATOCRIT 35.3 % (35.0-46.0); HEMO FLAGS DIFF FINAL; LYMPH % 12.7 % (9.0-44.0); LYMPHOCYTE # 1.2 TH/MM3 (1.0-4.8); MEAN CELL VOLUME 92.8 FL (80.0-100.0); MEAN CORPUSCULAR HEMOGLOBIN 31.8 PG (27.0-34.0); MEAN CORPUSCULAR HGB CONC 34.2 % (32.0-36.0); MONO % 5.3 % (0.0-8.0); NEUT % 80.8 % (16.0-70.0); PLATELET COUNT 505 TH/MM3 (150-450); RED BLOOD COUNT 3.81 MIL/MM3 (4.00-5.30); RED CELL DISTRIBUTION WIDTH 13.4 % (11.6-17.2); WHITE BLOOD COUNT 9.2 TH/MM3 (4.0-11.0)
[2016-08-27 08:06] VITALS: BP 126/72; PULSE 106; RESP 18; TEMP 97.3; O2SAT 97
--- NOTE | 2016-08-27 08:18 | RADRPT ---
EXAM DATE/TIME: 08/27/2016 06:41 [place] COMPARISON: CHEST SINGLE AP, August 25, 2016, 13:08. INDICATIONS: Cough, back pain, short of breath, evaluate pneumonia MEDICAL HISTORY: Asthma SURGICAL HISTORY: None. ENCOUNTER: Subsequent ACUITY: 3 days PAIN SCORE: 10/10 LOCATION: Bilateral chest FINDINGS: Scattered patchiness is noted within the lung bases consistent with possible atelectasis and/or pneum onia. Clinical correlation is recommended. The heart is stable. The pulmonary vascular pattern is n ormal. Degenerative changes and mild scoliosis of the thoracolumbar spine are noted. CONCLUSION: 1. Scattered bibasilar patchiness consistent with atelectasis and/or pneumonia. Clinical correlatio n is recommended. 2. Mild degenerative changes and scoliosis of the thoracolumbar spine. Tariq Mays MD on August 27, 2016 at 7:06 Board Certified Radiologist. This report was verified electronically.
[2016-08-27] MEDS: buPROPion HCL 150 MG SUSTAINED RELEASE TAB PO SCH (09:00)
[2016-08-27] MEDS: LACTOBACILLUS ACIDOPHILUS TAB PO SCH ×2 (09:53→10:05)
[2016-08-27] MEDS: PANTOPRAZOLE SODIUM 40 MG VIAL IV PUSH SCH (09:53)
[2016-08-27] MEDS: LEVOFLOXACIN 750 MG PREMIX INJ 150 ML IV SCH (09:55)
[2016-08-27] MEDS: SODIUM CHLORIDE 0.9% FLUSH 5 ML FLUSH FLUSH SCH (09:56)
[2016-08-27] MEDS: lamoTRIgine 100 MG TAB PO SCH (10:04)
--- NOTE | 2016-08-27 10:09 | HHI.GIFU ---
Subjective Remarks Patient resting in bed. States she had a very bad night secondary to herbal back spasms. She reports that since she was started on the bethanechol she is urinating or frequently and having to get up nonstop throughout the night and that's what caused her back pain. States she went back on clear liquids because she could not tolerate the ensure. However does feel that she could tolerate some mashed potatoes. She has diffuse tenderness and bloating. States she had 3 loose stools today. (Sandra Parmar) Objective Vitals I&O Vital Signs Date Time Temp Pulse Resp B/P Pulse Ox O2 Delivery O2 Flow Rate FiO2 08/27/16 08:06 97.3 106 18 126/72 97 08/27/16 00:01 97.7 92 18 135/93 98 08/26/16 21:00 Room Air 08/26/16 20:05 97.7 94 18 133/89 97 08/26/16 16:00 97.9 119 18 119/86 96 08/26/16 12:00 99.4 109 18 119/82 96 I/O 08/26/16 08/26/16 08/26/16 08/27/16 08/27/16 08/27/16 07:00 15:00 23:00 07:00 15:00 23:00 Intake Total 2713 ml 480 ml 720 ml 480 ml Balance 2713 ml 480 ml 720 ml 480 ml Intake Oral 480 ml 480 ml 720 ml 480 ml IV Total 2233 ml # Voids 7 7 5 5 # Bowel Movements 3 0 0 Laboratory Laboratory Tests Test 08/27/16 08/27/16 06:14 06:16 White Blood Count 9.2 Red Blood Count 3.81 Hemoglobin 12.1 Hematocrit 35.3 Mean Corpuscular Volume 92.8 Mean Corpuscular Hemoglobin 31.8 Mean Corpuscular Hemoglobin 34.2 Concent Red Cell Distribution Width 13.4 Platelet Count 505 Mean Platelet Volume 7.8 Neutrophils (%) (Auto) 80.8 Lymphocytes (%) (Auto) 12.7 Monocytes (%) (Auto) 5.3 Eosinophils (%) (Auto) 0.9 Basophils (%) (Auto) 0.3 Neutrophils # (Auto) 7.4 Lymphocytes # (Auto) 1.2 Monocytes # (Auto) 0.5 Eosinophils # (Auto) 0.1 Basophils # (Auto) 0.0 CBC Comment DIFF FINAL Differential Comment Sodium Level 138 Potassium Level 3.6 Chloride Level 103 Carbon Dioxide Level 26.1 Anion Gap 9 Blood Urea Nitrogen 1 Creatinine 0.51 Estimat Glomerular Filtration 136 Rate Random Glucose 95 Calcium Level 8.5 Date/Time Procedure Status Source Growth 08/22/16 17:45 Cryptosporidium Exam - Final Complete Stool Stool NEGATIVE - NO CRYPTOSPORIDIUM ANTIGEN... 08/22/16 17:45 Giardia Antigen (EZIO) - Final Complete Stool Stool NEGATIVE - NO GIARDIA ANTIGEN DETECTE... 08/22/16 17:45 - Final Complete Stool Stool Imaging Last Impressions Chest X-Ray 08/27/16 0000 Signed Impressions: Service Date/Time: Saturday, August 27, 2016 06:41 - CONCLUSION: 1. Scattered bibasilar patchiness consistent with atelectasis and/or pneumonia. Clinical correlation is recommended. 2. Mild degenerative changes and scoliosis of the thoracolumbar spine. Tariq Mays MD Small Bowel X-Ray 08/22/16 0000 Signed Impressions: Service Date/Time: Monday, August 22, 2016 14:25 - CONCLUSION: Features are typical of small bowel ileus rather than obstruction. There is evidence of enteritis proximally, nonspecific. Fei Gregorio MD Abdomen/Pelvis CT 08/20/16 1850 Signed Impressions: Service Date/Time: Saturday, August 20, 2016 20:31 - CONCLUSION: Ileus versus obstruction has developed, favor the former, and potentially on the basis of acute appendicitis in the proper clinical setting. Fei Gregorio MD Physical Exam HEENT: PERRLA. Normocephalic; atraumatic; no jaundice. CHEST: CTA CARDIAC: RRR ABDOMEN: Soft, nondistended, mild diffuse tenderness; no hepatosplenomegaly; bowel sounds x 4 quadrants EXTREMITIES: No clubbing, cyanosis, or edema. 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 (Sandra Parmar) Assessment and Plan Plan ASSESSMENT: - Ileus. N/V/D with abdominal pain. Pt with hx of SIBO (2006)- given Xifaxan, no improvement and Gastroparesis 2006 (diet modification, zofran, phenergan prn) . Last EGD to r/o celiac dz 2006 negative, Colonoscopy 2005- internal hemorrhoids. CT scan without IV contrast and this revealed an ileus versus obstruction has developed, favor the former, and potentially on the basis of acute appendicitis in the proper clinical setting. 1. 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 Stool studies enteric pathogens pending. Small Bowel X-Ray (08/22/16)----> Features are typical of small bowel ileus rather than obstruction. There is evidence of enteritis proximally, nonspecific. States she did not tolerate the ensure and therefore went back on Clears, however, thinks she can tolerate mashed potatoes. States the bethanechol is making her urinate too frequently and the getting up and down to go to the BR has aggravated her back and therefore would like this discontinued. - Chronic constipation. Moving bowels, passing flatus.3 loose stools yesterday. - Gastroparesis. 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 PPI - Cont. Zosyn, Flagyl - Consider EGD/Colonoscopy once above issues resolve, patient declining for tomorrow. - Try to decrease narcotic use, as this may be contributing to her ileus. - GS following - Supportive care - Further recommendations to follow based on results of above - Pt seen and examined by Dr. Wells and myself and this note is written on his behalf (Sandra Parmar) Physician Comments Patient seen and examined Agree with above Continue with current supportive care Monitor labs (Obi Delatorre MD) Sandra Parmar Aug 27, 2016 10:09 Obi Delatorre MD Aug 28, 2016 00:31
--- NOTE | 2016-08-27 11:51 | HHI.PR ---
Subjective Remarks Follow-up intractable nausea/vomiting/abdominal pain/ileus 08/22/16-patient seen and examined, currently nothing by mouth with NG tube in place. Positive for abdominal pain but denies any emesis or significant nausea 08/23/16-patient seen and examined, still with nausea however no emesis. Also complained of some abdominal pain. Patient also had facial and post nasal drip 08/24/16-patient seen and examined; tolerating NG tube clamping. She did tolerated clear liquid. Complains of dysuria 08/25/16-patient seen and examined, NG tube was removed last night, patient spiking fevers. He tolerates clears without any significant nausea. 08/26/16-patient seen and examined him a she had multiple episode of diarrhea yesterday however resolved 8 hours. She also had emesis but currently without any symptoms. Checks x-ray with finding of pulmonary infiltrate . MAXIMUM TEMPERATURE 99.8 at 4 PM however currently afebrile 08/27/16-patient seen and examined; abdominal pain improved and she has no more nausea or emesis. She only complains of back pain. Currently afebrile. Objective Vitals Vital Signs Date Time Temp Pulse Resp B/P Pulse Ox O2 Delivery O2 Flow Rate FiO2 08/27/16 08:06 97.3 106 18 126/72 97 08/27/16 00:01 97.7 92 18 135/93 98 08/26/16 21:00 Room Air 08/26/16 20:05 97.7 94 18 133/89 97 08/26/16 16:00 97.9 119 18 119/86 96 08/26/16 12:00 99.4 109 18 119/82 96 I/O 08/26/16 08/26/16 08/26/16 08/27/16 08/27/16 08/27/16 07:00 15:00 23:00 07:00 15:00 23:00 Intake Total 2713 ml 480 ml 720 ml 480 ml Balance 2713 ml 480 ml 720 ml 480 ml Intake Oral 480 ml 480 ml 720 ml 480 ml IV Total 2233 ml # Voids 7 7 5 5 # Bowel Movements 3 0 0 Result Diagram: 08/27/16 0614 08/27/16 0616 Objective Remarks GENERAL: NAD SKIN: Warm and dry. HEAD: Normocephalic. EYES: No scleral icterus. No injection or drainage. NECK: Supple, trachea midline. No JVD or lymphadenopathy. CARDIOVASCULAR: Regular rate and rhythm without murmurs, gallops, or rubs. RESPIRATORY: Breath sounds equal bilaterally. No accessory muscle use. GASTROINTESTINAL: Abdomen soft, mildly tender, nondistended. Positive bowel sounds MUSCULOSKELETAL: No cyanosis, or edema. BACK: Nontender without obvious deformity. No CVA tenderness. 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 Flat and upright 08/22/16 reviewed with finding of Features are typical of small bowel ileus rather than obstruction. now diet advanced to solid food. Continue with Zosyn and Flagyl. Appreciate input from general surgery. GI consultation appreciated and plan for EGD/colonoscopy outpatient. 2-Intractable nausea/vomiting/abdominal pain: Improved, Continue anti-emetic.. GI input appreciated and plan for possible EGD/colonoscopy outpatient 3-Hypokalemia: Resolved 4-Ehler Dhalos syndrome and its associated complications as : Gastroparesis/Corneal damage/Tachycardia/Orthostatic hypotension/Pulmonary blebs/Osteoporosis 5-DVT prophylaxis with SCD's 6-GI prophylaxis: PPI 7-Dysuria: UA negative 8-HCAP: Checks x-ray 08/25/16 with finding of Lateral left lower lobe pulmonary consolidation. Currently on Zosyn and Flagyl, Levaquin and monitor sputum and blood culture. Incentive spirometry at bedside and maintain oxygen saturation above 92% Problem Qualifiers (1) Abdominal pain: Qualified Code: R10.84 - Generalized abdominal pain Devyn Mccauley MD Aug 27, 2016 11:51
[2016-08-27] MEDS ORDERED: LACTCHW3 CHEW (11:54)
[2016-08-27] MEDS ORDERED: LEVA750T PO (11:54)
--- NOTE | 2016-08-27 11:57 | HHI.DS ---
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 Patient reported that for the past 1 week, she has been having abdominal pain with associated nausea, vomiting, diarrhea. She did come into the emergency room about 48 hours into her symptoms and she has had CT abdomen and pelvis done with oral contrast which did not reveal any acute pathology appendix was not fully evaluated due to lack of IV contrast as patient has contrast allergy. Patient states that she was told to discharge home with pain control, nausea control and hydration. However she was not improving at home subsequently and spine now she has been vomiting about 25 times a day, having diarrhea about 10 times a day. She denies any blood in her stool or in her vomitus. She states that her vomitus is greenish in color. Denies fevers. She then presented back to [facility] [place] emergency room today and was time for CT imaging studies now revealed significant ileus without bowel obstruction. Again appendix was not fully evaluated as per radiology reading. Patient was transferred to the main hospital her general surgery request for further evaluation. 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 She has had gastroparesis for many years. 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 She denies using any pain medications at home. Denies having had any abdominal surgeries. In the emergency room, patient's NG tube output was quite high at around 500 cc. By the time of my arrival, patient has per second canister with greenish bile fullabout another 500 cc. Apart from the above, patient denies any fevers/chest pain/palpitations/ shortness of breath/focal weakness. Denies any dizziness/syncopal episodes. Denies any burning urination or pain on urination. CBC/BMP: 08/27/16 0614 08/27/16 0616 Significant Findings Laboratory Tests Test 08/25/16 08/27/16 08/27/16 04:52 06:14 06:16 Potassium Level 3.3 MEQ/L (3.5-5.1) Blood Urea Nitrogen 2 MG/DL (7-18) 1 MG/DL (7-18) Creatinine 0.41 MG/DL (0.50-1.00) Calcium Level 8.3 MG/DL (8.5-10.1) Red Blood Count 3.81 MIL/MM3 (4.00-5.30) Platelet Count 505 TH/MM3 (150-450) Neutrophils (%) (Auto) 80.8 % (16.0-70.0) Imaging Last Impressions Chest X-Ray 08/27/16 0000 Signed Impressions: Service Date/Time: Saturday, August 27, 2016 06:41 - CONCLUSION: 1. Scattered bibasilar patchiness consistent with atelectasis and/or pneumonia. Clinical correlation is recommended. 2. Mild degenerative changes and scoliosis of the thoracolumbar spine. Tariq Mays MD Small Bowel X-Ray 08/22/16 0000 Signed Impressions: Service Date/Time: Monday, August 22, 2016 14:25 - CONCLUSION: Features are typical of small bowel ileus rather than obstruction. There is evidence of enteritis proximally, nonspecific. Fei Gregorio MD Abdomen/Pelvis CT 08/20/16 1850 Signed Impressions: Service Date/Time: Saturday, August 20, 2016 20:31 - CONCLUSION: Ileus versus obstruction has developed, favor the former, and potentially on the basis of acute appendicitis in the proper clinical setting. Fei Gregorio MD PE at Discharge GENERAL: NAD SKIN: Warm and dry. HEAD: Normocephalic. EYES: No scleral icterus. No injection or drainage. NECK: Supple, trachea midline. No JVD or lymphadenopathy. CARDIOVASCULAR: Regular rate and rhythm without murmurs, gallops, or rubs. RESPIRATORY: Breath sounds equal bilaterally. No accessory muscle use. GASTROINTESTINAL: Abdomen soft, mildly tender, nondistended. Positive bowel sounds MUSCULOSKELETAL: No cyanosis, or edema. BACK: Nontender without obvious deformity. No CVA tenderness. Hospital Course Admitted secondary to intractable nausea and vomiting, she was diagnosed with use as well as colitis for which patient was started on antibiotics including Zosyn and Flagyl with consultation to both general surgery and gastroenterology. She was initially kept nothing by mouth with NG tube placed which was subsequently removed. Her diet was advanced accordingly. All electrolyte abnormalities were corrected accordingly include hypokalemia. Patient was diagnosed with HCAP was started on Levaquin. DVT and GI prophylaxis were provided. Patient will need outpatient panendoscopy Pt Condition on Discharge: Stable Discharge Disposition: Discharge Home Discharge Time: <= 30 minutes Discharge Instructions DIET: Follow Instructions for: Heart Healthy Diet Activities you can perform: Regular-No Restrictions Follow up Referrals: Gastroenterology PCP Follow-up - 1 Week New Medications: Lactobacillus Acidophilus (Lactinex) 1 Chew 1 TAB CHEW DAILY Nutritional Supplement #30 Ref 0 TAB Levofloxacin (Levaquin) 750 Mg Tab 750 MG PO DAILY Infection #7 Ref 0 TAB Continued Medications: Alprazolam (Alprazolam) 0.5 Mg Tab 1 MG PO QID PRN ANXIETY Ref 0 TAB Bupropion HCl ER 12 HR (Wellbutrin SR 12 HR) 150 Mg Tab 300 MG PO DAILY Control Depression Ref 0 TAB Lamotrigine (Lamictal) 150 Mg Tab 150 MG PO BID Depression Control #60 Ref 0 TAB Lurasidone (Latuda) 80 Mg Tab 100 MG PO HS #30 Ref 0 TAB Ondansetron Odt (Zofran Odt) 4 Mg Tab 4 MG SL Q6HR PRN Nausea/Vomiting #30 Ref 0 TAB Discontinued Medications: Potassium Chloride ER (K-Tab) 20 Meq Tab 60 MEQ PO ONCE Electrolyte Replacement #3 Ref 0 TAB Temazepam (Temazepam) 30 Mg Cap 30 MG PO HS PRN INSOMNIA #30 Ref 0 CAP Devyn Mccauley MD Aug 27, 2016 11:57
[2016-08-27] MEDS ORDERED: ALPRAZolam 0.5 MG TAB PO SCH (13:00)
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
[2016-08-27] MEDS ORDERED: ZOFR4TAB PO (15:47)
--- NOTE | 2016-08-27 15:50 | HHI.PR ---
Subjective Subjective Notes Ambulating in the room Mother at bedside---upset Patient upset and crying about being discharged home Objective Vitals/I&O Vital Signs Date Time Temp Pulse Resp B/P Pulse Ox O2 Delivery O2 Flow Rate FiO2 08/27/16 08:06 97.3 106 18 126/72 97 08/26/16 21:00 Room Air Labs Laboratory Tests Test 08/27/16 08/27/16 06:14 06:16 White Blood Count 9.2 Red Blood Count 3.81 Hemoglobin 12.1 Hematocrit 35.3 Mean Corpuscular Volume 92.8 Mean Corpuscular Hemoglobin 31.8 Mean Corpuscular Hemoglobin 34.2 Concent Red Cell Distribution Width 13.4 Platelet Count 505 Mean Platelet Volume 7.8 Neutrophils (%) (Auto) 80.8 Lymphocytes (%) (Auto) 12.7 Monocytes (%) (Auto) 5.3 Eosinophils (%) (Auto) 0.9 Basophils (%) (Auto) 0.3 Neutrophils # (Auto) 7.4 Lymphocytes # (Auto) 1.2 Monocytes # (Auto) 0.5 Eosinophils # (Auto) 0.1 Basophils # (Auto) 0.0 CBC Comment DIFF FINAL Differential Comment Sodium Level 138 Potassium Level 3.6 Chloride Level 103 Carbon Dioxide Level 26.1 Anion Gap 9 Blood Urea Nitrogen 1 Creatinine 0.51 Estimat Glomerular Filtration 136 Rate Random Glucose 95 Calcium Level 8.5 Date/Time Procedure Status Source Growth 08/22/16 17:45 Cryptosporidium Exam - Final Complete Stool Stool NEGATIVE - NO CRYPTOSPORIDIUM ANTIGEN... 08/22/16 17:45 Giardia Antigen (EZIO) - Final Complete Stool Stool NEGATIVE - NO GIARDIA ANTIGEN DETECTE... 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 I reviewed and agree with the findings presented. I attest that I had a [id number] encounter with the patient on the same day, and personally performed and documented my assessment and findings in the medical record. patient wishes to continue medical management, wants to avoid surgery due to risk of complications with ED syndrome Nevaeh Johnson Aug 27, 2016 15:50 Shane Padilla MD Sep 08, 2016 01:41
== END 2016-08-27 16:59 | disposition home or self-care (01) | DRG 388 ==
LOC: PHED 18:33 → PHEDA 23:34 → N06B 08-21 01:15
PROVIDERS: ADMIT Hospitalist; ATTEND Hospitalist
DX: K56.7 Ileus, unspecified (principal); J18.9 Pneumonia, unspecified organism; Q79.6 Ehlers-Danlos syndromes; K31.84 Gastroparesis; R11.0 Nausea; E87.6 Hypokalemia; M81.0 Age-related osteoporosis without current pathological fracture; Z91.041 Radiographic dye allergy status; F17.210 Nicotine dependence, cigarettes, uncomplicated; Y95 Nosocomial condition; K52.9 Noninfective gastroenteritis and colitis, unspecified; K59.09 Other constipation; F31.9 Bipolar disorder, unspecified; R30.0 Dysuria; M54.9 Dorsalgia, unspecified; R00.0 Tachycardia, unspecified
CPT/HCPCS: 43753; 71010; 74176; 74250; 80048; 80053; 81001; 83690; 83735; 84702; 85007; 85025; 85027; 85610; 85730; 87328; 87329; 87493; 87506; 87804; 96361; 96365; 96366; 96368; 96375; C9113; J1956; J2060; J2270; J2405; J2543; J2765; J3480; J7030; Q9963

== ENCOUNTER 2016-12-02 03:50 | Emergency (ER) | payer MEDICAID, OTHER ==
[~2016-12-02 03:50] MED LIST changes: +LACTCHW3 CHEW; +LEVA750T PO; -POTA1TAB4 PO; -TEMA30CA PO; +ZOFR4TAB PO
[2016-12-02 04:12] VITALS: BP 156/111; PULSE 118; RESP 20; TEMP 98.5; O2SAT 98
[2016-12-02] MEDS ORDERED: PROM2SUP RECTAL (04:19)
[2016-12-02] MEDS ORDERED: PERC5TAB12 PO (04:19)
[2016-12-02] MEDS ORDERED: ZANT150T2 PO (04:19)
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
[2016-12-02 04:41] VITALS: BP 150/109; PULSE 97; O2SAT 98
[2016-12-02 05:48] LABS: AMPHETAMINE, URINE NEG (NEG); BARBITURATES, URINE NEG (NEG); COCAINE, URINE NEG (NEG)
[2016-12-02 05:52] LABS: AUTOMATED NEUTROPHIL # 4.8 TH/MM3 (1.8-7.7); BASOPHIL % 0.4 % (0.0-2.0); EOSINOPHIL % 0.7 % (0.0-4.0); HEMATOCRIT 38.8 % (35.0-46.0); HEMO FLAGS DIFF FINAL; LYMPH % 24.7 % (9.0-44.0); LYMPHOCYTE # 1.7 TH/MM3 (1.0-4.8); MEAN CELL VOLUME 89.3 FL (80.0-100.0); MEAN CORPUSCULAR HEMOGLOBIN 28.8 PG (27.0-34.0); MEAN CORPUSCULAR HGB CONC 32.2 % (32.0-36.0); MONO % 4.1 % (0.0-8.0); NEUT % 70.1 % (16.0-70.0); PLATELET COUNT 322 TH/MM3 (150-450); RED BLOOD COUNT 4.34 MIL/MM3 (4.00-5.30); RED CELL DISTRIBUTION WIDTH 13.8 % (11.6-17.2); WHITE BLOOD COUNT 6.9 TH/MM3 (4.0-11.0)
[2016-12-02 05:59] LABS: ANION GAP 11 MEQ/L (5-15); AST (GOT) 18 U/L (15-37); BICARBONATE 25.3 MEQ/L (21.0-32.0); BLOOD UREA NITROGEN 6 MG/DL (7-18); CHLORIDE 105 MEQ/L (98-107); GLOMERULAR FILTRATION RATE 84 ML/MIN (>89); POTASSIUM 3.8 MEQ/L (3.5-5.1); SODIUM (NA) 141 MEQ/L (136-145)
[2016-12-02 06:00] LABS: ALT (GPT) 24 U/L (10-53)
[2016-12-02 06:03] LABS: ACETAMINOPHEN 33.5 MCG/ML (10.0-30.0); ALKALINE PHOSPHATASE 88 U/L (45-117); TOTAL BILIRUBIN ADULT 0.1 MG/DL (0.2-1.0)
[2016-12-02 06:30] VITALS: BP 137/78; PULSE 90; RESP 16; O2SAT 100
--- NOTE | 2016-12-02 07:21 | PD ---
Physical Exam Time Seen by Provider: 07:10 Data Data Last Documented VS Vital Signs Date Time Temp Pulse Resp B/P Pulse Ox O2 Delivery O2 Flow Rate FiO2 12/02/16 06:30 90 16 137/78 100 Room Air 12/02/16 04:12 98.5 Orders Complete Blood Count With Diff (12/02/16 04:13) Comprehensive Metabolic Panel (12/02/16 04:13) Psych Screen (12/02/16 04:13) Drug Screen, Random Urine (12/02/16 04:13) Alcohol (Ethanol) (12/02/16 04:13) Salicylates (Aspirin) (12/02/16 04:13) Tylenol (Acetaminophen) (12/02/16 04:13) Lamictal (Lamotrigine) (12/02/16 04:13) Iv Access Insert/Monitor (12/02/16 04:13) Tylenol (Acetaminophen) (12/02/16 08:23) Labs Laboratory Tests Test 12/02/16 12/02/16 12/02/16 04:50 04:55 08:45 White Blood Count 6.9 TH/MM3 Red Blood Count 4.34 MIL/MM3 Hemoglobin 12.5 GM/DL Hematocrit 38.8 % Mean Corpuscular Volume 89.3 FL Mean Corpuscular Hemoglobin 28.8 PG Mean Corpuscular Hemoglobin 32.2 % Concent Red Cell Distribution Width 13.8 % Platelet Count 322 TH/MM3 Mean Platelet Volume 8.1 FL Neutrophils (%) (Auto) 70.1 % Lymphocytes (%) (Auto) 24.7 % Monocytes (%) (Auto) 4.1 % Eosinophils (%) (Auto) 0.7 % Basophils (%) (Auto) 0.4 % Neutrophils # (Auto) 4.8 TH/MM3 Lymphocytes # (Auto) 1.7 TH/MM3 Monocytes # (Auto) 0.3 TH/MM3 Eosinophils # (Auto) 0.0 TH/MM3 Basophils # (Auto) 0.0 TH/MM3 CBC Comment DIFF FINAL Differential Comment Sodium Level 141 MEQ/L Potassium Level 3.8 MEQ/L Chloride Level 105 MEQ/L Carbon Dioxide Level 25.3 MEQ/L Anion Gap 11 MEQ/L Blood Urea Nitrogen 6 MG/DL Creatinine 0.78 MG/DL Estimat Glomerular Filtration 84 ML/MIN Rate Random Glucose 101 MG/DL Calcium Level 8.8 MG/DL Total Bilirubin 0.1 MG/DL Aspartate Amino Transf 18 U/L (AST/SGOT) Alanine Aminotransferase 24 U/L (ALT/SGPT) Alkaline Phosphatase 88 U/L Total Protein 8.3 GM/DL Albumin 4.5 GM/DL Salicylates Level LESS THAN 1.7 MG/DL Acetaminophen Level 33.5 MCG/ML 19.5 MCG/ML Ethyl Alcohol Level 220 MG/DL Urine Opiates Screen NEG Urine Barbiturates Screen NEG Urine Amphetamines Screen NEG Urine Benzodiazepines Screen POS Urine Cocaine Screen NEG Urine Cannabinoids Screen NEG MDM Medical Record Reviewed: Yes Supervised Visit with BRITTA: No Narrative Course I assumed care of this patient pending repeat Tylenol level testing. Please see previous providers notes. In summary this patient is under Kimble act for evaluation of depression, self-inflicted wounds to the wrist. Her Tylenol level was found to be 33 at 0450. Repeat Tylenol level was ordered for 8:30. The patient reports she ingested 2 Percocets at 9 PM yesterday evening, no Tylenol based products since then. She does report taking 2 500 mg Tylenol tablets sometime yesterday afternoon. She endorses drinking alcohol yesterday evening, she reports all of the events of yesterday evening. She has no medical complaints at this time. Repeat Tylenol level was 19.5. The patient is medically cleared for psychiatric disposition. Diagnosis Primary Impression: Abnormal laboratory test result Additional Impression: Suicidal ideation Ned Zepeda Dec 02, 2016 07:21
[2016-12-02 12:40] VITALS: BP 165/87; PULSE 115; RESP 24; TEMP 99; O2SAT 100
[2016-12-02] MEDS ORDERED: DIAZEPAM 5 MG TAB PO ONE (13:15)
--- NOTE | 2016-12-02 15:39 | PD ---
History of Present Illness Chief Complaint: Psychiatric Symptoms Time Seen by Provider: 14:30 Travel History International Travel<30 Days: No Contact w/Intl Traveler<30days: No Known affected area: No Legal Status Legal Status: Kimble Act Kimble Act Signed By: History of Present Illness: This is a 36-year-old female who was Kimble acted last night for making suicidal statements. Patient admits to being intoxicated last night and states that she should not drink alcohol and mixed it with her bipolar disease. Her live-in boyfriend of 2 years she describes as having schizoaffective disorder and he too was consuming alcohol prior to their argument. Patient acknowledges that she made suicidal statements but now that she is sober, she denies any suicidal or homicidal ideation, plan or intent. She states that she has had a difficult time this year with multiple medical issues, multiple hospitalizations, Ms. diagnoses and difficult treatments. However, at this time she would rather go home then be hospitalized. Her cognition is intact and she has no psychotic symptoms. She is verbally lionel for safety. She denies any suicidal or homicidal ideation, plan or intent. She has a follow up appointment with her psychiatrist in 12 days. She would like to make that appointment. PFSH Past Medical History Arthritis: Yes Asthma: Yes Bipolar Disorder: Yes Anxiety: Yes Depression: Yes Cancer: No Cardiovascular Problems: Yes (htn , states hx of tachacardia) Diabetes: No Diminished Hearing: No Endocrine: No Gastrointestinal Disorders: Yes (GASTROPARESIS) GERD: Yes (IBS) Genitourinary: No Headaches: Yes Hypertension: Yes (Orthostatic Hypertension per pt. recent HTN states takes no meds) Implanted Vascular Access Dvce: No Musculoskeletal: Yes Neurologic: Yes (GEOVANNI-DANLOS SYNDROME) Psychiatric: Yes Reproductive: No Respiratory: Yes Integumentary: Yes (CONNECTIVE TISSUE DISORDER) Migraines: Yes Seizures: No ?: Unknown : 0 Para: 0 Miscarriage: 0 : 0 Past Surgical History Oral Surgery: Yes Other Surgery: Yes (SEE ED REPORT/MEDICAL RECORDS) Psychiatric History Psychiatric History Hx Psychiatric Treatment: PT CLAIMS TO APPROX 24 INPT STAY STARTING IN 1994 17 A MINOR. [facility], [facility], [facility] [place], [facility], [facility] [place] [facility] &2013. Patient reports she has a history of bipolar disorder in addition to a connective tissue disease for which she gets Social Security. She tells this physician she is obviously manic because she speaks in a tangential fashion. However, this physician sees no other significant signs of bipolar nu or depression at this time. Her alcohol intoxication last night appears to be a primary source of her suicidal remarks. History of Inpatient Treatment: Yes Guns or firearms in home: No Social History Hx Alcohol Use: Yes (occas. wine) Hx Tobacco Use: No Hx Substance Use: No (states never) Substance Use Type: Alcohol Hx of Substance Use Treatment: No Allergies-Medications (Allergen,Severity, Reaction): Coded Allergies: Haldol (Verified Allergy, Severe, SPASMS, 12/02/16) Tramadol (Verified Allergy, Severe, HIVES, 12/02/16) Contrast Media (Verified Allergy, Mild, NAUSEA, 12/02/16) Ketamine (Verified Adverse Reaction, Mild, ANXIETY, 12/02/16) Reported Meds & Prescriptions Reported Meds & Active Scripts Active Lactinex (Lactobacillus Acidophilus) 1 Chew 1 Tab CHEW DAILY Zofran Odt (Ondansetron Odt) 4 Mg Tab 4 Mg SL Q6HR PRN Reported Zantac (Ranitidine HCl) 150 Mg Tab 150 Mg PO BID Phenergan Supp (Promethazine HCl) 12.5 Mg Supp 12.5 Mg RECTAL Q6H PRN Percocet (Oxycodone-Acetaminophen) 5-325 mg Tab 1 Tab PO Q4H PRN Latuda (Lurasidone) 80 Mg Tab 100 Mg PO HS Lamictal (Lamotrigine) 150 Mg Tab 150 Mg PO BID Wellbutrin SR 12 HR (Bupropion HCl) 150 Mg Tab 300 Mg PO DAILY Alprazolam 0.5 Mg Tab 1 Mg PO QID PRN Review of Systems Except as stated in HPI: all other systems reviewed are Neg Exam Alert: Yes [place]: Person, Place, Date, Situation Mood: Calm Affect: Appropriate Speech: Clear, Logical Eye Contact: Normal Memory Intact: Immediate, Recent, Remote Insight/Judgement Adequate [facility] Medical Decision Making Medical Record Reviewed: Yes Assessment/Plan Patient's Kimble act was lifted and she was discharged home. She was told that she can return before her outpatient psychiatric treatment if she is again feeling suicidal. She acknowledges her drinking alcohol last evening was a poor choice. She was encouraged to stop drinking alcohol. 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 Again, though the patient professes she is bipolar manic at this time, this physician does not see significant symptoms of that diagnosis and feels the patient does not meet inpatient psychiatric criteria. Orders Complete Blood Count With Diff (12/02/16 04:13) Comprehensive Metabolic Panel (12/02/16 04:13) Psych Screen (12/02/16 04:13) Drug Screen, Random Urine (12/02/16 04:13) Alcohol (Ethanol) (12/02/16 04:13) Salicylates (Aspirin) (12/02/16 04:13) Tylenol (Acetaminophen) (12/02/16 04:13) Lamictal (Lamotrigine) (12/02/16 04:13) Iv Access Insert/Monitor (12/02/16 04:13) Tylenol (Acetaminophen) (12/02/16 08:23) Diazepam (Valium) (12/02/16 13:15) Results Vital Signs Date Time Temp Pulse Resp B/P Pulse Ox O2 Delivery O2 Flow Rate FiO2 12/02/16 12:40 99.0 115 24 165/87 100 Room Air 12/02/16 06:30 90 16 137/78 100 Room Air 12/02/16 04:41 97 150/109 98 Room Air 12/02/16 04:12 98.5 118 20 156/111 98 Room Air Laboratory Tests Test 12/02/16 12/02/16 12/02/16 04:50 04:55 08:45 White Blood Count 6.9 Red Blood Count 4.34 Hemoglobin 12.5 Hematocrit 38.8 Mean Corpuscular Volume 89.3 Mean Corpuscular Hemoglobin 28.8 Mean Corpuscular Hemoglobin 32.2 Concent Red Cell Distribution Width 13.8 Platelet Count 322 Mean Platelet Volume 8.1 Neutrophils (%) (Auto) 70.1 Lymphocytes (%) (Auto) 24.7 Monocytes (%) (Auto) 4.1 Eosinophils (%) (Auto) 0.7 Basophils (%) (Auto) 0.4 Neutrophils # (Auto) 4.8 Lymphocytes # (Auto) 1.7 Monocytes # (Auto) 0.3 Eosinophils # (Auto) 0.0 Basophils # (Auto) 0.0 CBC Comment DIFF FINAL Differential Comment Sodium Level 141 Potassium Level 3.8 Chloride Level 105 Carbon Dioxide Level 25.3 Anion Gap 11 Blood Urea Nitrogen 6 Creatinine 0.78 Estimat Glomerular Filtration 84 Rate Random Glucose 101 Calcium Level 8.8 Total Bilirubin 0.1 Aspartate Amino Transf 18 (AST/SGOT) Alanine Aminotransferase 24 (ALT/SGPT) Alkaline Phosphatase 88 Total Protein 8.3 Albumin 4.5 Salicylates Level LESS THAN 1.7 Acetaminophen Level 33.5 19.5 Ethyl Alcohol Level 220 Urine Opiates Screen NEG Urine Barbiturates Screen NEG Urine Amphetamines Screen NEG Urine Benzodiazepines Screen POS Urine Cocaine Screen NEG Urine Cannabinoids Screen NEG Diagnosis Primary Impression: Adjustment disorder with mixed disturbance of emotions and conduct Departure Forms: Tests/Procedures Patient Instructions: General Instructions Bryon Rico MD Dec 02, 2016 15:39
== END 2016-12-02 15:40 | disposition home or self-care (01) ==
LOC: NEPD 03:50
DX: F43.25 Adjustment disorder with mixed disturbance of emotions and conduct (principal); F31.9 Bipolar disorder, unspecified; F43.10 Post-traumatic stress disorder, unspecified; F29 Unspecified psychosis not due to a substance or known physiological condition; I10 Essential (primary) hypertension; R00.0 Tachycardia, unspecified
CPT/HCPCS: 80053; 80175; 80307; 85025; 99284

== ENCOUNTER 2016-12-07 04:38 | Emergency (ER) | payer MEDICAID, OTHER ==
[~2016-12-07] VITALS: Ht 152.4 cm; Wt 48.0 kg
[~2016-12-07 04:38] MED LIST changes: -LEVA750T PO; +PERC5TAB12 PO; +PROM2SUP RECTAL; +ZANT150T2 PO; -ZOFR4TAB PO
[2016-12-07 05:00] VITALS: BP 149/114; PULSE 134; RESP 14; TEMP 98.8; O2SAT 98
[2016-12-07 05:04] VITALS: BP 149/114; PULSE 132; RESP 14; O2SAT 99
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
[2016-12-07] MEDS ORDERED: SODIUM CHLOR 0.9% 1000 ML INJ 1,000 ML IV ONE ×2 (05:30→06:15)
[2016-12-07 05:54] LABS: ALT (GPT) 23 U/L (10-53); ANION GAP 11 MEQ/L (5-15); AST (GOT) 17 U/L (15-37); BICARBONATE 22.9 MEQ/L (21.0-32.0); BLOOD UREA NITROGEN 8 MG/DL (7-18); CHLORIDE 109 MEQ/L (98-107); GLOMERULAR FILTRATION RATE 84 ML/MIN (>89); POTASSIUM 3.8 MEQ/L (3.5-5.1); SODIUM (NA) 143 MEQ/L (136-145)
[2016-12-07 05:55] LABS: ACETAMINOPHEN LESS THAN 2.0 MCG/ML (10.0-30.0); ALKALINE PHOSPHATASE 87 U/L (45-117); TOTAL BILIRUBIN ADULT 0.1 MG/DL (0.2-1.0)
[2016-12-07 07:15] VITALS: BP 138/88; PULSE 95; RESP 18; O2SAT 96
[2016-12-07] MEDS ORDERED: TEMA30CA PO (10:28)
[2016-12-07] MEDS: lamoTRIgine 100 MG TAB PO SCH ×2 (10:30→21:24)
[2016-12-07] MEDS ORDERED: buPROPion HCL 150 MG SUSTAINED RELEASE TAB PO ONE (10:30)
[2016-12-07] MEDS: ALPRAZolam 1 MG TAB PO PRN ×2 (11:02→16:55)
[2016-12-07 14:46] VITALS: BP 145/94; PULSE 98; RESP 20; TEMP 98.3; O2SAT 99
[2016-12-07] MEDS ORDERED: FLUMAZENIL 0.5 MG/5 ML VIAL IV PUSH PRN (19:00)
[2016-12-07] MEDS ORDERED: LORazepam 2 MG/ML VIAL IV PUSH PRN ×4 (19:00)
[2016-12-07] MEDS ORDERED: LORazepam 2 MG TAB PO PRN (19:00)
[2016-12-07] MEDS ORDERED: LORazepam 1 MG TAB PO PRN (19:00)
[2016-12-07] MEDS ORDERED: PILL SPLITTER OTHER PRN (21:15)
[2016-12-07 22:05] VITALS: BP 159/93; PULSE 120; RESP 20; O2SAT 97
[2016-12-08] MEDS: ALPRAZolam 1 MG TAB PO PRN ×2 (01:52→08:43)
[2016-12-08 02:18] VITALS: BP 167/99; PULSE 128; RESP 18; TEMP 98.2; O2SAT 99
[2016-12-08 06:53] VITALS: BP 157/99; PULSE 89; RESP 18; TEMP 98.6; O2SAT 100
[2016-12-08] MEDS ORDERED: ONDANSETRON HCL 4 MG/2 ML VIAL IM ONE (08:45)
== END 2016-12-08 08:45 ==
LOC: NEPC 04:38 → NEPJ 12-08 08:45
DX: F10.129 Alcohol abuse with intoxication, unspecified (principal); Y90.8 Blood alcohol level of 240 mg/100 ml or more; I10 Essential (primary) hypertension; K58.9 Irritable bowel syndrome, unspecified; K21.9 Gastro-esophageal reflux disease without esophagitis; Q79.6 Ehlers-Danlos syndromes; F31.9 Bipolar disorder, unspecified
CPT/HCPCS: 80053; 80307; 96361; 96372; 96374; 99284; J2060; J2405; J7030

== ENCOUNTER 2017-04-09 13:42 | Inpatient (IN) | payer OTHER ==
[~2017-04-09] VITALS: Ht 149.9 cm; Wt 49.3 kg
[~2017-04-09 13:42] MED LIST changes: +TEMA30CA PO; -ZANT150T2 PO
--- NOTE | 2017-04-09 14:16 | PD ---
HPI Chief Complaint: Psychiatric Symptoms Time Seen by Provider: 14:03 Travel History International Travel<30 days: No Contact w/Intl Traveler<30days: No Traveled to known affect area: No History of Present Illness HPI 37-year-old female brought in under Like[place] act after she was found crying in her front yard and making suicidal statements. She reports a past psychiatric history of bipolar disorder, PTSD, is affective disorder, depression, psychosis. Patient reports suicidal ideation although she doesn't have a clear definitive plan. According to the EMR she has history of previous suicide attempts as well as multiple visits here under [employer]. She denies any medical complaint. She is reporting that she is being "followed and watched". She denies headache, chest pain, shortness breath, abdominal pain. PFSH Past Medical History Arthritis: Yes Asthma: Yes Bipolar Disorder: Yes Anxiety: Yes Depression: Yes Cancer: No Cardiovascular Problems: Yes (htn , states hx of tachacardia) Diabetes: No Diminished Hearing: No Endocrine: No Gastrointestinal Disorders: Yes (GASTROPARESIS) GERD: Yes (IBS) Genitourinary: No Headaches: Yes Hypertension: Yes (Orthostatic Hypertension per pt. recent HTN states takes no meds) Implanted Vascular Access Dvce: No Musculoskeletal: Yes Neurologic: Yes (GEOVANNI-DANLOS SYNDROME) Psychiatric: Yes Reproductive: No Respiratory: Yes Integumentary: Yes (CONNECTIVE TISSUE DISORDER) Migraines: Yes Seizures: No : 0 Para: 0 Miscarriage: 0 : 0 Past Surgical History Oral Surgery: Yes Other Surgery: Yes (SEE ED REPORT/MEDICAL RECORDS) Social History Alcohol Use: Yes (occas. wine) Tobacco Use: No Substance Use: Yes Allergies-Medications (Allergen,Severity, Reaction): Coded Allergies: haloperidol (Unverified Allergy, Severe, SPASMS, 02/12/17) tramadol (Unverified Allergy, Severe, HIVES, 02/12/17) diatrizoate meglumine (Unverified Allergy, Mild, NAUSEA, 02/12/17) gadobenic acid (Unverified Allergy, Mild, NAUSEA, 02/12/17) gadodiamide (Unverified Allergy, Mild, NAUSEA, 02/12/17) gadoteridol (Unverified Allergy, Mild, NAUSEA, 02/12/17) iodixanol (Unverified Allergy, Mild, NAUSEA, 02/12/17) iohexol (Unverified Allergy, Mild, NAUSEA, 02/12/17) trazodone (Unverified Allergy, Unknown, 02/12/17) ketamine (Unverified Adverse Reaction, Mild, ANXIETY, 02/12/17) Reported Meds & Prescriptions Reported Meds & Active Scripts Active Lactinex (Lactobacillus Acidophilus) 1 Chew 1 Tab CHEW DAILY Zofran Odt (Ondansetron Odt) 4 Mg Tab 4 Mg SL Q6HR PRN Reported Seroquel (Quetiapine Fumarate) 100 Mg Tab 100 Mg PO DAILY Seroquel (Quetiapine Fumarate) 50 Mg Tab 50 Mg PO DAILY Temazepam 30 Mg Cap 30 Mg PO HS PRN Phenergan Supp (Promethazine HCl) 12.5 Mg Supp 12.5 Mg RECTAL Q6H PRN Percocet (Oxycodone-Acetaminophen) 5-325 mg Tab 1 Tab PO Q4H PRN Lamictal (Lamotrigine) 150 Mg Tab 150 Mg PO BID Wellbutrin SR 12 HR (Bupropion HCl) 150 Mg Tab 300 Mg PO DAILY Alprazolam 0.5 Mg Tab 1 Mg PO QID PRN Review of Systems Except as stated in HPI: all other systems reviewed are Neg General / Constitutional: No: Fever Eyes: No: Visual changes HENT: No: Headaches Cardiovascular: No: Chest Pain or Discomfort Respiratory: No: Shortness of Breath Gastrointestinal: No: Abdominal Pain Psychiatric: Positive: Anxiety, Depression, Suicidal Ideations Physical Exam Narrative GENERAL: Well-nourished, well-developed patient. SKIN: Focused skin assessment warm/dry. HEAD: Normocephalic. EYES: No scleral icterus. No injection or drainage. NECK: Supple, trachea midline. No JVD or lymphadenopathy. CARDIOVASCULAR: Regular rate and rhythm without murmurs, gallops, or rubs. RESPIRATORY: Breath sounds equal bilaterally. No accessory muscle use. GASTROINTESTINAL: Abdomen soft, non-tender, nondistended. MUSCULOSKELETAL: No cyanosis, or edema. BACK: Nontender without obvious deformity. No CVA tenderness. PSYCHIATRIC: Pressured speech. Avoids eye contact. Paranoid thoughts. Data Data Last Documented VS Vital Signs Date Time Temp Pulse Resp B/P (MAP) Pulse Ox O2 Delivery O2 Flow Rate FiO2 04/10/17 12:00 107 20 154/86 (108) 100 Orders Orders Complete Blood Count With Diff (04/09/17 14:04) Comprehensive Metabolic Panel (04/09/17 14:04) Ed Urine Pregnancytest Poc (04/09/17 14:04) Psych Screen (04/09/17 14:04) Alcohol (Ethanol) (04/09/17 14:04) Salicylates (Aspirin) (04/09/17 14:04) Tylenol (Acetaminophen) (04/09/17 14:04) Sodium Chlor 0.9% 1000 Ml Inj (Ns 1000 M (04/09/17 14:28) Sodium Chlor 0.9% 1000 Ml Inj (Ns 1000 M (04/09/17 16:02) Thyroid Stimulating Hormone (04/09/17 16:02) Electrocardiogram (04/09/17 16:26) Potassium Chloride (Kcl) (04/09/17 17:30) Lorazepam Inj (Ativan Inj) (04/09/17 18:15) Admit Order (Ed Use Only) (04/10/17 14:19) Labs Laboratory Tests Test 04/09/17 14:10 04/09/17 18:10 White Blood Count 8.4 TH/MM3 Red Blood Count 4.60 MIL/MM3 Hemoglobin 13.5 GM/DL Hematocrit 40.6 % Mean Corpuscular Volume 88.3 FL Mean Corpuscular Hemoglobin 29.3 PG Mean Corpuscular Hemoglobin Concent 33.2 % Red Cell Distribution Width 13.9 % Platelet Count 311 TH/MM3 Mean Platelet Volume 8.7 FL Neutrophils (%) (Auto) 73.6 % Lymphocytes (%) (Auto) 20.6 % Monocytes (%) (Auto) 5.5 % Eosinophils (%) (Auto) 0.1 % Basophils (%) (Auto) 0.2 % Neutrophils # (Auto) 6.2 TH/MM3 Lymphocytes # (Auto) 1.7 TH/MM3 Monocytes # (Auto) 0.5 TH/MM3 Eosinophils # (Auto) 0.0 TH/MM3 Basophils # (Auto) 0.0 TH/MM3 CBC Comment DIFF FINAL Differential Comment Blood Urea Nitrogen 15 MG/DL Creatinine 0.84 MG/DL Random Glucose 101 MG/DL Total Protein 9.2 GM/DL Albumin 5.3 GM/DL Calcium Level 9.8 MG/DL Alkaline Phosphatase 95 U/L Aspartate Amino Transf (AST/SGOT) 11 U/L Alanine Aminotransferase (ALT/SGPT) 23 U/L Total Bilirubin 0.5 MG/DL Sodium Level 137 MEQ/L Potassium Level 3.2 MEQ/L Chloride Level 104 MEQ/L Carbon Dioxide Level 17.8 MEQ/L Anion Gap 15 MEQ/L Estimat Glomerular Filtration Rate 76 ML/MIN Salicylates Level 1.8 MG/DL Acetaminophen Level LESS THAN 2.0 MCG/ML Ethyl Alcohol Level LESS THAN 3 MG/DL Thyroid Stimulating Hormone 3rd Gen 1.210 uIU/ML MDM Medical Decision Making Medical Screen Exam Complete: Yes Emergency Medical Condition: Yes Interpretation(s) ekg: sinus tachycardia rate 136. No ST elevation or depression. Urine : Negative CBC: Unremarkable CMP: Mild hypokalemia 3.2 will be replaced orally in the ED. TSH: 1.2 Tox screen: Alcohol less than 3, salicylate 1.8, acetaminophen 2.0 Drug screen: Differential Diagnosis Depression with suicidal ideation, substance induced mood disorder, bipolar disorder Narrative Course 37-year-old female here under Kimble act for suicidal ideation. Patient has symptoms of history of psychiatric illness which include bipolar disorder, PTSD , anxiety, depression, previous suicide attempts. She denies alcohol or illicit drug use today. She reports she is depressed and suicidal although she does not have a plan. Patient will be evaluated in the emergency department once medically cleared she will receive psychiatric evaluation. Patient arrived tachycardic with a rate in the 130s she was administered 2 litters of fluid. Patient observed in ED. Her vitals are stable she is on continuous telemetry & pulse oximetry monitoring. She remains in sinus tach rate 110-130s. She is asymptomatic. She denies chest pain, dizziness or SOB. it is possible patient ingested anticholinergics or other medications affecting her heart rate. Tox screen still pending. Patient was discussed with attending Dr. Burnham who will continue to monitor patient in ED & patient will receive psych screen. Laurita Carmona Apr 09, 2017 14:16
[2017-04-09] MEDS ORDERED: SODIUM CHLOR 0.9% 1000 ML INJ 1,000 ML IV SCH ×2 (14:28→16:02)
[2017-04-09 14:29] VITALS: BP 159/90; PULSE 129; RESP 20; TEMP 98.9; O2SAT 100
[2017-04-09 15:05] LABS: AUTOMATED NEUTROPHIL # 6.2 TH/MM3 (1.8-7.7); BASOPHIL % 0.2 % (0.0-2.0); EOSINOPHIL % 0.1 % (0.0-4.0); HEMATOCRIT 40.6 % (35.0-46.0); HEMO FLAGS DIFF FINAL; LYMPH % 20.6 % (9.0-44.0); LYMPHOCYTE # 1.7 TH/MM3 (1.0-4.8); MEAN CELL VOLUME 88.3 FL (80.0-100.0); MEAN CORPUSCULAR HEMOGLOBIN 29.3 PG (27.0-34.0); MEAN CORPUSCULAR HGB CONC 33.2 % (32.0-36.0); MONO % 5.5 % (0.0-8.0); NEUT % 73.6 % (16.0-70.0); PLATELET COUNT 311 TH/MM3 (150-450); RED CELL DISTRIBUTION WIDTH 13.9 % (11.6-17.2); WHITE BLOOD COUNT 8.4 TH/MM3 (4.0-11.0)
[2017-04-09 15:23] LABS: ALT (GPT) 23 U/L (10-53); ANION GAP 15 MEQ/L (5-15); AST (GOT) 11 U/L (15-37); BICARBONATE 17.8 MEQ/L (21.0-32.0); BLOOD UREA NITROGEN 15 MG/DL (7-18); CHLORIDE 104 MEQ/L (98-107); GLOMERULAR FILTRATION RATE 76 ML/MIN (>89); POTASSIUM 3.2 MEQ/L (3.5-5.1); SODIUM (NA) 137 MEQ/L (136-145)
[2017-04-09 15:25] LABS: ALCOHOL LESS THAN 3 MG/DL (0-5); ALKALINE PHOSPHATASE 95 U/L (45-117); TOTAL BILIRUBIN ADULT 0.5 MG/DL (0.2-1.0)
[2017-04-09 15:28] LABS: ACETAMINOPHEN LESS THAN 2.0 MCG/ML (10.0-30.0)
[2017-04-09 15:55] VITALS: BP 159/95; PULSE 130; RESP 20; TEMP 98.5; O2SAT 100
[2017-04-09] MEDS ORDERED: SERO100T PO (16:23)
[2017-04-09] MEDS ORDERED: SERO50TA PO (16:23)
[2017-04-09] MEDS ORDERED: POTASSIUM CHLORIDE 20 MEQ CONTROLLED RELEASE TAB PO ONE (17:30)
[2017-04-09 17:57] VITALS: BP 159/90; PULSE 140; PULSE 146; RESP 20; TEMP 99.2; O2SAT 100
[2017-04-09] MEDS ORDERED: LORazepam 2 MG/ML VIAL IV PUSH ONE (18:15)
[2017-04-09 18:54] VITALS: PULSE 140; RESP 20; O2SAT 100
[2017-04-09 20:24] VITALS: BP 151/93; PULSE 146; RESP 16; O2SAT 100
[2017-04-10 06:46] VITALS: BP 137/90; PULSE 110; RESP 16; O2SAT 99
[2017-04-10 12:00] VITALS: BP 154/86; PULSE 107; RESP 20; O2SAT 100
[2017-04-10] MEDS ORDERED: MAGNESIUM HYDROXIDE SUSP 30 ML CUP PO PRN (14:30)
[2017-04-10] MEDS ORDERED: LORazepam 2 MG/ML VIAL IM PRN (14:30)
[2017-04-10] MEDS ORDERED: ALUMINUM/MAGNESIUM/SIMETH 30 ML CUP PO PRN (14:30)
[2017-04-10] MEDS ORDERED: PROMETHAZINE HCL 12.5 MG SUPP RECTAL PRN (14:30)
--- NOTE | 2017-04-10 14:35 | HHI.HP ---
Provisional Diagnosis Admission Date Apr 10, 2017 at 14:20 [place] I. Major depression with psychotic features Certification of Person's Competence To Provide Express and Informed Consent I have personally examined Delaney Welsh , a person being served at [facility] on, Apr 10, 2017 14:25. Express and informed consent means consent voluntarily given in writing, by a competent person, after sufficient explanation and disclosure of the subject matter involved to enable the person to make a knowing and willful decision without any element of force, fraud, deceit, duress, or other form of constraint or coercion. This person is 18 years of age or older, is not now known to be incompetent to consent to treatment with a guardian advocate, and does not have a health care surrogate or proxy currently making medical treatment decisions. I have found this person to be one of the following: [x] Competent to provide express and informed consent, as defined above, for voluntary admission to this facility and is competent to provide express and informed consent for treatment. He/she has the consistent capacity to make well reasoned, willful, and knowing decisions concerning his or her medical or mental health treatment. The person fully and consistently understands the purpose of the admission for examination/placement and is fully capable of personally exercising all rights assured under [place] Incompetent to provide express and informed consent to voluntary admission, and this is incompetent to provide express and informed consent to treatment. The person must be transferred to involuntary status and a petition for a guardian advocate filed with the Circuit Court. [] Refusing to provide express and informed consent to voluntary admission but is competent to provide express and informed consent for treatment. The person must be discharged or transferred to involuntary status. Form shall be completed within 24 hours of a person's arrival at the receiving facility and filed in the clinical record of each person: 1. Admitted on a voluntary basis 2. Permitted to provide express and informed consent to his/her own treatment 3. Allowed to transfer from involuntary to voluntary status 4. Prior to permitting a person to consent to his or her own treatment after having been previously found incompetent to consent to treatment. History of Present Illness Capacity: Has Capacity HPI This is a 37-year-old female brought in under a Kimble act for agitated, hysterical and suicidal behavior. Apparently she was Kimble acted in [place] [address] sitting on her lawn, yelling, crying, demonstrating difficulty speaking and "out of touch with reality". She told law enforcement she was thinking of killing herself. She reportedly refused help. Patient's mother was contacted and indicated the patient is currently receiving electroconvulsive therapy in [place]. At this time, the patient is a poor historian. She continues to have difficulty with communication and she rambles and mumbles incoherently. She did give consent for her parents to be contacted and her father explained that she suffers from bipolar disorder and is receiving ECT. The mother explained the patient is often on medication and is compliant. However, she has been experiencing more confusion and memory loss since the ECT treatments began. She is also describing paranoid ideation. This physician also finds the patient to be incoherent, tearful, suicidal and unable to care for herself. This physician does not feel the patient could be adequately monitored and assisted by her parents. Review of Systems ROS Limitations: Intoxication Except as stated in HPI: all other systems reviewed are Neg Past Psych History Psychological trauma history Unknown psychological trauma. Violence risk - others (6 mos) Moderate Violence risk - self (6 mos) High Substance Abuse History Drugs/Alcohol past 12 months Denied Past Family Social History Coded Allergies: haloperidol (Unverified Allergy, Severe, SPASMS, 02/12/17) tramadol (Unverified Allergy, Severe, HIVES, 02/12/17) diatrizoate meglumine (Unverified Allergy, Mild, NAUSEA, 02/12/17) gadobenic acid (Unverified Allergy, Mild, NAUSEA, 02/12/17) gadodiamide (Unverified Allergy, Mild, NAUSEA, 02/12/17) gadoteridol (Unverified Allergy, Mild, NAUSEA, 02/12/17) iodixanol (Unverified Allergy, Mild, NAUSEA, 02/12/17) iohexol (Unverified Allergy, Mild, NAUSEA, 02/12/17) trazodone (Unverified Allergy, Unknown, 02/12/17) ketamine (Unverified Adverse Reaction, Mild, ANXIETY, 02/12/17) Active Scripts Lactobacillus Acidophilus (Lactinex) 1 Chew, 1 TAB CHEW DAILY for Nutritional Supplement, #30 TAB 0 Refills Prov:Devyn Mccauley MD 08/27/16 Ondansetron Odt (Zofran Odt) 4 Mg Tab, 4 MG SL Q6HR Y for Nausea/Vomiting, #30 TAB 0 Refills Prov:Grayson Monae MD 06/29/16 Reported Medications Quetiapine (Seroquel) 100 Mg Tab, 100 MG PO DAILY, TAB 0 Refills 04/09/17 Quetiapine (Seroquel) 50 Mg Tab, 50 MG PO DAILY, TAB 0 Refills 04/09/17 Temazepam (Temazepam) 30 Mg Cap, 30 MG PO HS Y for INSOMNIA, #30 CAP 0 Refills 12/07/16 Promethazine Supp (Phenergan Supp) 12.5 Mg Supp, 12.5 MG RECTAL Q6H Y for NAUSEA OR VOMITING, SUPP 0 Refills 12/02/16 Oxycodone-Acetaminophen (Percocet) 5-325 mg Tab, 1 TAB PO Q4H Y for PAIN, TAB 0 Refills 12/02/16 Lamotrigine (Lamictal) 150 Mg Tab, 150 MG PO BID for Depression Control, #60 TAB 0 Refills 06/29/16 Bupropion HCl ER 12 HR (Wellbutrin SR 12 HR) 150 Mg Tab, 300 MG PO DAILY for Control Depression, TAB 0 Refills 06/29/16 Alprazolam (Alprazolam) 0.5 Mg Tab, 1 MG PO QID Y for ANXIETY, TAB 0 Refills 06/29/16 Discontinued Reported Medications Lurasidone (Latuda) 80 Mg Tab, 100 MG PO HS, #30 TAB 0 Refills 06/29/16 Current Medications Medications (Trade) Dose Ordered Sig/Madelyn Route Start Time Stop Time Status Last Admin (Ativan) 1 mg Q6H PRN PO 04/10/17 14:30 UNV (Ativan Inj) 1 mg Q6H PRN IM 04/10/17 14:30 UNV (Tylenol) 650 mg Q4H PRN PO 04/10/17 14:30 UNV (Milk Of Magnesia Liq) 30 ml DAILY PRN PO 04/10/17 14:30 UNV (Mag-Al Plus Susp Liq) 30 ml Q6H PRN PO 04/10/17 14:30 UNV Family Psych History Positive for mood disorders. Social History Has been living with her parents. Unemployed. Denies history of alcoholism or drug abuse. Unable to care for herself. Patient's Strengths (min. 2) Resilient and has access to healthcare. Physical Exam GENERAL: SKIN: Warm and dry. HEAD: Normocephalic. EYES: No scleral icterus. No injection or drainage. NECK: Supple, trachea midline. No JVD or lymphadenopathy. CARDIOVASCULAR: Regular rate and rhythm without murmurs, gallops, or rubs. RESPIRATORY: Breath sounds equal bilaterally. No accessory muscle use. GASTROINTESTINAL: Abdomen soft, non-tender, nondistended. MUSCULOSKELETAL: No cyanosis, or edema. BACK: Nontender without obvious deformity. No CVA tenderness. Vital Signs Vital Signs Date Time Temp Pulse Resp B/P (MAP) Pulse Ox O2 Delivery O2 Flow Rate FiO2 04/10/17 12:00 107 20 154/86 (108) 100 04/09/17 20:24 Room Air 04/09/17 17:57 99.2 Lab Results Test 04/09/17 18:10 Thyroid Stimulating Hormone 3rd Gen 1.210 uIU/ML Mental Status Examination Appearance: Appropriate Consciousness: Alert Orientation: Person Motor Activity: Normal gait Speech: Incoherent Language: Adequate Fund of Knowledge: Adequate Attention and Concentration: Easily Distracted Memory: Impaired Mood: Sad, Anxious Affect: Sad, Labile, Anxious Thought Process & Associations: Other Thought Content: Bizarre thinking, Delusional Hallucination Type: Auditory Delusion Type: Paranoid Suicidal Ideation: Yes Suicidal Plan: Yes Suicidal Intention: No Homicidal Ideation: No Homicidal Plan: No Homicidal Intention: No Insight: Adequate Judgment: Adequate Assessment & Plan Problem List: (1) Severe major depression with psychotic features ICD Codes: F32.3 - Major depressive disorder, single episode, severe with psychotic features Assessment & Plan Estimated LOS: days 37-year-old female with confusion, depression, suicidality , inability to care for herself and dangerous behavior. Patient is felt to continue to be at high risk for harming herself on purpose or walking into traffic or not eating or drinking. For these reasons, the patient is being admitted for further evaluation and stabilization. This physician has ordered a CBC and comprehensive metabolic panel. This is to determine if the patient has some infectious process or metabolic process which is causing or contributing to her confusion and depression. Additionally, this physician ordered a thyroid-stimulating hormone level, vitamin B-12 level and vitamin D levels. This is also to ascertain if deficiencies in these areas are causing or contributing to her depression and confusion. This physician ordered an EKG to determine the patient cardiac conduction status prior to changing her psychotropic medications. This physician spoke with the patient's nurse regarding her recent behavior. Case management will also be involved to speak with the parents and gather more information as well as assist with disposition planning. Bryon Rico MD Apr 10, 2017 14:35
[2017-04-10 14:56] VITALS: BP 155/100
[2017-04-10] MEDS: LORazepam 1 MG TAB PO PRN ×2 (16:34→20:14)
[2017-04-10 17:52] VITALS: BP 154/104; PULSE 130; RESP 18; O2SAT 100
[2017-04-10] MEDS: lamoTRIgine 100 MG TAB PO SCH (20:14)
--- NOTE | 2017-04-10 23:52 | EKG ---
Date Performed: 04/09/2017 Time Performed: 16:33:41 PTAGE: 37 years EKG: SINUS TACHYCARDIA WITH SHORT NV INTERVAL NONSPECIFIC ST & T-WAVE ABNORMALITY ABNORMAL ECG C ompared to the PREVIOUS TRACING from 08/17/16, ST/T wave changes are less prominent DOCTOR: Wade Palafox Interpretating Date/Time 04/10/2017 23:50:16
[2017-04-11 06:02] VITALS: BP 143/105; PULSE 135; RESP 18; TEMP 97.7; O2SAT 100
[2017-04-11] MEDS: lamoTRIgine 100 MG TAB PO SCH ×2 (08:28→21:02)
[2017-04-11] MEDS: buPROPion HCL 150 MG SUSTAINED RELEASE TAB PO SCH ×3 (08:28→21:00)
[2017-04-11 12:57] LABS: ALT (GPT) 21 U/L (10-53); ANION GAP 14 MEQ/L (5-15); AST (GOT) 12 U/L (15-37); BLOOD UREA NITROGEN 9 MG/DL (7-18); CHLORIDE 107 MEQ/L (98-107); GLOMERULAR FILTRATION RATE 88 ML/MIN (>89); SODIUM (NA) 139 MEQ/L (136-145)
[2017-04-11 13:04] LABS: POTASSIUM 2.8 MEQ/L (3.5-5.1)
--- NOTE | 2017-04-11 13:13 | EKG ---
Date Performed: 04/11/2017 Time Performed: 11:04:07 PTAGE: 37 years EKG: SINUS TACHYCARDIA WITH SHORT OR INTERVAL NONSPECIFIC ST & T-WAVE ABNORMALITY ABNORMAL RHYTH M ECG PREVIOUS TRACING : 04/09/2017 16.33 No significant change from previous tracing noted. DOCTOR: Kyree Tello Interpretating Date/Time 04/11/2017 13:11:15
[2017-04-11 13:23] LABS: ALKALINE PHOSPHATASE 80 U/L (45-117); HDL CHOLESTEROL 60.6 MG/DL (40.0-60.0); LDL CHOLESTEROL 134 MG/DL (0-99); TOTAL BILIRUBIN ADULT 0.4 MG/DL (0.2-1.0)
[2017-04-11] MEDS: ONDANSETRON ODT 4 MG TAB SL PRN ×2 (14:41→21:08)
[2017-04-11] MEDS: ACETAMINOPHEN 325 MG TAB PO PRN (14:41)
[2017-04-11] MEDS: LORazepam 1 MG TAB PO PRN (14:41)
[2017-04-11] MEDS ORDERED: POTASSIUM CHLORIDE 25 MEQ EFFERVESCENT TAB PO ONE (16:00)
[2017-04-11 16:02] LABS: AUTOMATED NEUTROPHIL # 5.2 TH/MM3 (1.8-7.7); BASOPHIL % 0.5 % (0.0-2.0); EOSINOPHIL # 0.1 TH/MM3 (0-0.4); HEMATOCRIT 39.5 % (35.0-46.0); HEMO FLAGS DIFF FINAL; LYMPH % 25.1 % (9.0-44.0); MEAN CELL VOLUME 87.1 FL (80.0-100.0); MEAN CORPUSCULAR HEMOGLOBIN 28.8 PG (27.0-34.0); MONO % 7.4 % (0.0-8.0); PLATELET COUNT 253 TH/MM3 (150-450); RED BLOOD COUNT 4.54 MIL/MM3 (4.00-5.30); RED CELL DISTRIBUTION WIDTH 13.8 % (11.6-17.2); WHITE BLOOD COUNT 7.9 TH/MM3 (4.0-11.0)
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
[2017-04-11 17:57] VITALS: BP 122/86; PULSE 129; RESP 18; TEMP 98; O2SAT 96
--- NOTE | 2017-04-11 18:15 | PD.CONS ---
[facility] By Dr. Archibald Reason for Consult Medical management Primary Care Physician Kai Maldonado MD Diagnoses: History of Present Illness This is a 37-year-old female with past medical history of manolo danlos syndrome , gastroparesis, pots syndrome, chronic pain of her upper neck and back, depression who presented with depression with psychosis. H&H is consulted for medical management. Patient stated that at baseline she is able to eat small portions of food and takes zofran for gastroparesis. She stated for chronic pain she has been on morphine ER 50 mg twice a day for at least 6 months. Prior she was on for now patch. She stated this is being managed by pain management. Patient also stated that she has ensure supplements with her meals. All concerns and issues were addressed with patient. Patient's nurse was at the bedside during the interview. All other systems were reviewed and negative. Past Family Social History Allergies: Coded Allergies: haloperidol (Unverified Allergy, Severe, SPASMS, 02/12/17) tramadol (Unverified Allergy, Severe, HIVES, 02/12/17) diatrizoate meglumine (Unverified Allergy, Mild, NAUSEA, 02/12/17) gadobenic acid (Unverified Allergy, Mild, NAUSEA, 02/12/17) gadodiamide (Unverified Allergy, Mild, NAUSEA, 02/12/17) gadoteridol (Unverified Allergy, Mild, NAUSEA, 02/12/17) iodixanol (Unverified Allergy, Mild, NAUSEA, 02/12/17) iohexol (Unverified Allergy, Mild, NAUSEA, 02/12/17) trazodone (Unverified Allergy, Unknown, 02/12/17) ketamine (Unverified Adverse Reaction, Mild, ANXIETY, 02/12/17) Past Medical History manolo danlos syndrome Gastroparesis Lee Chronic pain syndrome Past Surgical History Laparoscopic abdominal surgery Appendectomy Thoracotomy Reported Medications Lactinex (Lactobacillus Acidophilus) 1 Chew 1 Tab CHEW DAILY Zofran Odt (Ondansetron Odt) 4 Mg Tab 4 Mg SL Q6HR PRN Reported Seroquel (Quetiapine Fumarate) 100 Mg Tab 100 Mg PO DAILY Seroquel (Quetiapine Fumarate) 50 Mg Tab 50 Mg PO DAILY Temazepam 30 Mg Cap 30 Mg PO HS PRN Phenergan Supp (Promethazine HCl) 12.5 Mg Supp 12.5 Mg RECTAL Q6H PRN Percocet (Oxycodone-Acetaminophen) 5-325 mg Tab 1 Tab PO Q4H PRN Lamictal (Lamotrigine) 150 Mg Tab 150 Mg PO BID Wellbutrin SR 12 HR (Bupropion HCl) 150 Mg Tab 300 Mg PO DAILY Alprazolam 0.5 Mg Tab 1 Mg PO QID PRN Active Ordered Medications Current Medications Sodium Chloride 1,000 ml @ 1,000 mls/hr Q1H IV Last administered on 14:48; Start 04/09/17 at 14:28; Stop 04/09/17 at 15:27; Status DC Sodium Chloride 1,000 ml @ 1,000 mls/hr Q1H IV Last administered on 16:02; Start 04/09/17 at 16:02; Stop 04/09/17 at 17:01; Status DC Potassium Chloride (KCl) 20 meq ONCE ONCE PO Last administered on 04/09/17 18:18; Start 04/09/17 at 17:30; Stop 04/09/17 at 17:31; Status DC Lorazepam (Ativan Inj) 1 mg ONCE ONCE IV PUSH Last administered on 04/09/17 18:23; Start 04/09/17 at 18:15; Stop 04/09/17 at 18:16; Status DC Lorazepam (Ativan) 1 mg Q6H PRN PO MODERATE TO SEVERE ANXIETY Last administered on 04/11/17 14:41; Start 04/10/17 at 14:30 Lorazepam (Ativan Inj) 1 mg Q6H PRN IM MODERATE TO SEVERE ANXIETY; Start 04/10 at 14:30 Acetaminophen (Tylenol) 650 mg Q4H PRN PO Pain 1-5 or Temp >101F Last administered on 04/11/17 14:41; Start 04/10/17 at 14:30 Magnesium Hydroxide (Milk Of Magnesia Liq) 30 ml DAILY PRN PO CONSTIPATION; Start 04/10/17 at 14:30 Al Hydrox/Mg Hydrox/Simethicone (Mag-Al Plus Susp Liq) 30 ml Q6H PRN PO DYSPEPSIA; Start 04/10/17 at 14:30 Bupropion HCl (Wellbutrin Sr) 300 mg DAILY PO ; Start 04/10/17 at 14:30; Stop 04/11/17 at 12:55; Status DC Lamotrigine (LaMICtal) 150 mg BID PO Last administered on 04/11/17 08:28; Start 04/10/17 at 21:00 Ondansetron HCl (Zofran Odt) 4 mg Q6HR PRN SL Nausea/Vomiting Last administered on 04/11/17 14:41; Start 04/10/17 at 14:30 Promethazine HCl (Phenergan Supp) 12.5 mg Q6H PRN RECTAL NAUSEA OR VOMITING; Start 04/10/17 at 14:30 Bupropion HCl (Wellbutrin Sr) 150 mg BID PO ; Start 04/11/17 at 21:00 Temazepam (Restoril) 15 mg HS PO ; Start 04/11/17 at 21:00 Quetiapine Fumarate (SEROquel) 50 mg BID@09,12 PO ; Start 04/12/17 at 09:00 Quetiapine Fumarate (SEROquel) 100 mg HS PO ; Start 04/11/17 at 21:00 Potassium Bicarb/ Potassium Chloride (K-Lyte Cl Eff) 75 meq ONCE ONCE PO Last administered on 04/11/17 16:00; Start 04/11/17 at 16:00; Stop 04/11/17 at 16:49; Status DC Family History Mother history of breast cancer and diabetes. Father had a history of coronary artery disease and hypertension. Social History Denies tobacco use and occasional alcohol use. Physical Exam Vital Signs Vital Signs Date Time Temp Pulse Resp B/P (MAP) Pulse Ox O2 Delivery O2 Flow Rate FiO2 04/11/17 17:57 98.0 129 18 122/86 (98) 96 04/11/17 06:02 97.7 135 18 143/105 (118) 100 Physical Exam GENERAL: This is a well-nourished, well-developed patient, in no apparent distress. SKIN: No rashes, ecchymoses or lesions. Cool and dry. HEAD: Atraumatic. Normocephalic. No temporal or scalp tenderness. EYES: Pupils equal round and reactive. Extraocular motions intact. No scleral icterus. No injection or drainage. ENT: Nose without bleeding, purulent drainage or septal hematoma. Throat without erythema, tonsillar hypertrophy or exudate. Uvula midline. Airway patent. NECK: Trachea midline. No JVD or lymphadenopathy. Supple, nontender, no meningeal signs. CARDIOVASCULAR: Regular rate and rhythm without murmurs, gallops, or rubs. RESPIRATORY: Clear to auscultation. Breath sounds equal bilaterally. No wheezes , rales, or rhonchi. GASTROINTESTINAL: Abdomen soft, non-tender, nondistended. No hepato-splenomegaly , or palpable masses. No guarding. MUSCULOSKELETAL: Extremities without clubbing, cyanosis, or edema. No joint tenderness, effusion, or edema noted. No calf tenderness. Negative Homans sign bilaterally. NEUROLOGICAL: Awake and alert. Cranial nerves II through XII intact. Motor and sensory grossly within normal limits. Five out of 5 muscle strength in all muscle groups. Normal speech. Laboratory Laboratory Tests Test 04/11/17 11:47 White Blood Count 7.9 Red Blood Count 4.54 Hemoglobin 13.0 Hematocrit 39.5 Mean Corpuscular Volume 87.1 Mean Corpuscular Hemoglobin 28.8 Mean Corpuscular Hemoglobin Concent 33.0 Red Cell Distribution Width 13.8 Platelet Count 253 Mean Platelet Volume 8.4 Neutrophils (%) (Auto) 66.0 Lymphocytes (%) (Auto) 25.1 Monocytes (%) (Auto) 7.4 Eosinophils (%) (Auto) 1.0 Basophils (%) (Auto) 0.5 Neutrophils # (Auto) 5.2 Lymphocytes # (Auto) 2.0 Monocytes # (Auto) 0.6 Eosinophils # (Auto) 0.1 Basophils # (Auto) 0.0 CBC Comment DIFF FINAL Differential Comment Blood Urea Nitrogen 9 Creatinine 0.74 Random Glucose 94 Total Protein 7.7 Albumin 4.2 Calcium Level 9.2 Alkaline Phosphatase 80 Aspartate Amino Transf (AST/SGOT) 12 Alanine Aminotransferase (ALT/SGPT) 21 Total Bilirubin 0.4 Sodium Level 139 Potassium Level 2.8 Chloride Level 107 Carbon Dioxide Level 18.0 Anion Gap 14 Estimat Glomerular Filtration Rate 88 Magnesium Level 2.0 Triglycerides Level 90 Cholesterol Level 213 LDL Cholesterol 134 HDL Cholesterol 60.6 Cholesterol/HDL Ratio 3.51 Vitamin B12 Level 1233 25-Hydroxy Vitamin D Total 19.6 Thyroid Stimulating Hormone 3rd Gen 0.989 Result Diagram: 04/11/17 1147 04/11/17 1147 Assessment and Plan Assessment and Plan This is a 37-year-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 Vitamin D deficiency -Will give supplement. Hypokalemia -Potassium 2.8. Asymptomatic. We'll check magnesium and give potassium when necessary. -We will also recheck potassium. Chronic pain syndrome -Per patient she has been on morphine ER 15 mg twice a day. Medical records reviewed and as stated that patient was on Percocet prior. Unsure if patient has drug-seeking behavior. -This should be managed as outpatient with her pain management physician. Gastroparesis -Continue with Zofran when necessary. We will add ensure to her meals. hx of POTS syndrome -At the moment asymptomatic. Chronic in nature. DVT prophylaxis -Encourage ambulation. Discussed Condition With patient and her nurse Faustina Beth MD Apr 11, 2017 18:15
[2017-04-11] MEDS ORDERED: ERGOCALCIFEROL (VIT D2) 50,000 UNIT CAP PO SCH (21:00)
[2017-04-11] MEDS: QUEtiapine FUMARATE 100 MG TAB PO SCH (21:02)
[2017-04-11] MEDS: TEMAZEPAM 15 MG CAP PO SCH (21:02)
[2017-04-11 21:49] LABS: HEMOGLOBIN A1a 1.6 %; HEMOGLOBIN A1b 0.8 %; HEMOGLOBIN Ao 85.2 %; HEMOGLOBIN F 1.4 %; HEMOGLOBIN P3 3.4 %
[2017-04-12 06:19] VITALS: BP 117/95; PULSE 95; RESP 16; TEMP 97.8; O2SAT 99
[2017-04-12] MEDS: QUEtiapine FUMARATE 25 MG TAB PO SCH ×2 (07:59→12:00)
[2017-04-12] MEDS: lamoTRIgine 100 MG TAB PO SCH ×2 (08:01→20:54)
[2017-04-12] MEDS: buPROPion HCL 150 MG SUSTAINED RELEASE TAB PO SCH (09:00)
[2017-04-12] MEDS: ONDANSETRON ODT 4 MG TAB SL PRN (10:22)
--- NOTE | 2017-04-12 13:22 | HHI.PYPN ---
Subjective Remarks Patient seen for follow-up, chart reviewed. Discussion with nursing staff, patient showered, communicative, continues with AH, reported some nausea. Patient found in day room, calm and cooperative with interview. She states having nausea with the wellbutrin. She reports her mood as being "not great" and states that she wants to make things better. She continues to report AH of "people talking about me" denies command AH. She mentions less intense AH when distracted. Patient was visited by her father last evening. Mental Status Examination Appearance: Appropriate Consciousness: Alert Orientation: Person, Place Motor Activity: Normal gait Speech: Hesitant Language: Adequate Fund of Knowledge: Adequate Attention and Concentration: Easily Distracted Memory: Impaired Mood: Other ("not great") Affect: Anxious Thought Process & Associations: Loose associations Thought Content: Bizarre thinking, Hallucinations, Delusional Hallucination Type: Auditory Delusion Type: Paranoid Suicidal Ideation: Yes Suicidal Plan: Yes Suicidal Intention: No Homicidal Ideation: No Homicidal Plan: No Homicidal Intention: No Insight: Fair Judgment: Adequate Results Vitals/IOs Vital Signs Date Time Temp Pulse Resp B/P (MAP) Pulse Ox O2 Delivery O2 Flow Rate FiO2 04/12/17 06:19 97.8 95 16 117/95 (102) 99 04/09/17 20:24 Room Air Assessment & Plan Problem List: (1) Severe major depression with psychotic features ICD Codes: F32.3 - Major depressive disorder, single episode, severe with psychotic features Assessment & Plan Patient noted to have less disorganization, continues with AH; med compliant. Will discontinue bupropion due to intolerance to side effects. Start mirtazapine 15mg PO HS. Continue with rest of medications. Discharge planning in progress. Justification for Cont. Inpt. Patient seen for follow-up, chart reviewed. Discharge Planning Patient to return back to her residence once psychiatrically stable. Devyn Archibald MD Apr 12, 2017 13:22
[2017-04-12] MEDS: PROPRANOLOL HCL 10 MG TAB PO SCH ×2 (14:15→20:54)
[2017-04-12 17:02] LABS: BICARBONATE 23.5 MEQ/L (21.0-32.0); POTASSIUM 3.1 MEQ/L (3.5-5.1)
[2017-04-12] MEDS ORDERED: POTASSIUM CHLORIDE 25 MEQ EFFERVESCENT TAB PO ONE (17:30)
[2017-04-12 18:10] VITALS: BP 114/79; PULSE 102; RESP 18; O2SAT 99
[2017-04-12] MEDS: ACETAMINOPHEN 325 MG TAB PO PRN ×2 (18:11→18:29)
[2017-04-12] MEDS: LORazepam 1 MG TAB PO PRN ×2 (18:14→18:27)
[2017-04-12] MEDS: TEMAZEPAM 15 MG CAP PO SCH (20:54)
[2017-04-12] MEDS: QUEtiapine FUMARATE 100 MG TAB PO SCH (21:00)
[2017-04-12] MEDS: MIRTAZAPINE 15 MG TAB PO SCH (21:00)
[2017-04-13 06:04] VITALS: BP 106/61; PULSE 85; RESP 16; TEMP 98.9; O2SAT 100
[2017-04-13] MEDS: PROPRANOLOL HCL 10 MG TAB PO SCH ×2 (08:32→20:44)
[2017-04-13] MEDS: lamoTRIgine 100 MG TAB PO SCH ×2 (08:32→20:43)
[2017-04-13] MEDS: QUEtiapine FUMARATE 25 MG TAB PO SCH ×2 (08:32→11:41)
[2017-04-13] MEDS: LORazepam 1 MG TAB PO PRN (13:02)
[2017-04-13] MEDS: ONDANSETRON ODT 4 MG TAB SL PRN (13:02)
--- NOTE | 2017-04-13 14:32 | HHI.PR ---
Subjective Remarks Follow for multiple complaints Patient stated that she has acid reflux and that she usually takes Protonix and Carafate. She is asking if I can restart medication. She stated that she tolerate the propranolol well. Since starting the propranolol heart rate has improved. She has no other complaints. Objective Vitals Vital Signs Date Time Temp Pulse Resp B/P (MAP) Pulse Ox O2 Delivery O2 Flow Rate FiO2 04/13/17 06:04 98.9 85 16 106/61 (76) 100 04/12/17 18:10 102 18 114/79 (91) 99 Result Diagram: 04/11/17 1147 04/13/17 0707 Objective Remarks GENERAL: In NAD CARDIOVASCULAR: Regular rate and rhythm without murmurs, gallops, or rubs. RESPIRATORY: Breath sounds equal bilaterally. No accessory muscle use. GASTROINTESTINAL: Abdomen soft, non-tender, nondistended. MUSCULOSKELETAL: No cyanosis, or edema. BACK: Nontender without obvious deformity. No CVA tenderness. Medications and IVs Current Medications Sodium Chloride 1,000 ml @ 1,000 mls/hr Q1H IV Last administered on 14:48; Start 04/09/17 at 14:28; Stop 04/09/17 at 15:27; Status DC Sodium Chloride 1,000 ml @ 1,000 mls/hr Q1H IV Last administered on 16:02; Start 04/09/17 at 16:02; Stop 04/09/17 at 17:01; Status DC Potassium Chloride (KCl) 20 meq ONCE ONCE PO Last administered on 04/09/17 18:18; Start 04/09/17 at 17:30; Stop 04/09/17 at 17:31; Status DC Lorazepam (Ativan Inj) 1 mg ONCE ONCE IV PUSH Last administered on 04/09/17 18:23; Start 04/09/17 at 18:15; Stop 04/09/17 at 18:16; Status DC Lorazepam (Ativan) 1 mg Q6H PRN PO MODERATE TO SEVERE ANXIETY Last administered on 04/13/17 13:02; Start 04/10/17 at 14:30 Lorazepam (Ativan Inj) 1 mg Q6H PRN IM MODERATE TO SEVERE ANXIETY; Start 04/10 at 14:30 Acetaminophen (Tylenol) 650 mg Q4H PRN PO Pain 1-5 or Temp >101F Last administered on 04/12/17 18:29; Start 04/10/17 at 14:30 Magnesium Hydroxide (Milk Of Magnesia Liq) 30 ml DAILY PRN PO CONSTIPATION; Start 04/10/17 at 14:30 Al Hydrox/Mg Hydrox/Simethicone (Mag-Al Plus Susp Liq) 30 ml Q6H PRN PO DYSPEPSIA; Start 04/10/17 at 14:30 Bupropion HCl (Wellbutrin Sr) 300 mg DAILY PO ; Start 04/10/17 at 14:30; Stop 04/11/17 at 12:55; Status DC Lamotrigine (LaMICtal) 150 mg BID PO Last administered on 04/13/17 08:32; Start 04/10/17 at 21:00 Ondansetron HCl (Zofran Odt) 4 mg Q6HR PRN SL Nausea/Vomiting Last administered on 04/13/17 13:02; Start 04/10/17 at 14:30 Promethazine HCl (Phenergan Supp) 12.5 mg Q6H PRN RECTAL NAUSEA OR VOMITING; Start 04/10/17 at 14:30 Bupropion HCl (Wellbutrin Sr) 150 mg BID PO Last administered on 04/12/17 09: 00; Start 04/11/17 at 21:00; Stop 04/12/17 at 13:22; Status DC Temazepam (Restoril) 15 mg HS PO Last administered on 04/12/17 20:54; Start 04/11/17 at 21:00 Quetiapine Fumarate (SEROquel) 50 mg BID@,12 PO Last administered on 11:41; Start 04/12/17 at 09:00 Quetiapine Fumarate (SEROquel) 100 mg HS PO Last administered on 04/12/17 21: 00; Start 04/11/17 at 21:00 Potassium Bicarb/ Potassium Chloride (K-Lyte Cl Eff) 75 meq ONCE ONCE PO Last administered on 04/11/17 16:00; Start 04/11/17 at 16:00; Stop 04/11/17 at 16:49; Status DC Ergocalciferol (Drisdol) 50,000 units Q7D PO Last administered on 04/11/17 21 :02; Start 04/11/17 at 21:00 Mirtazapine (Remeron) 15 mg HS PO Last administered on 04/12/17 21:00; Start 04/12/17 at 21:00 Propranolol HCl (Inderal) 10 mg Q12HR PO Last administered on 04/13/17 08:32 ; Start 04/12/17 at 14:15 Potassium Bicarb/ Potassium Chloride (K-Lyte Cl Eff) 50 meq ONCE ONCE PO Last administered on 04/12/17 20:53; Start 04/12/17 at 17:30; Stop 04/12/17 at 17:37; Status DC A/P Assessment and Plan This is a 37-year-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 Vitamin D deficiency -Continue with supplements. Hypokalemia, resolved. -Initially Potassium 2.8. Asymptomatic. K is now 4.1. Magnesium is within normal limits. -Continue to replenish as needed. Chronic pain syndrome -Per patient she has been on morphine ER 15 mg twice a day. Medical records reviewed and as stated that patient was on Percocet prior. Unsure if patient has drug-seeking behavior. -This should be managed as outpatient with her pain management physician. Gastroparesis -Continue with Zofran when necessary. Continue ensure with meals. Acid reflux -Patient states she is on Protonix and Carafate home will continue medication. hx of POTS syndrome -Since the patient's heart rate went to 150s propanolol was added. Her with better control. Patient stated she is asymptomatic. DVT prophylaxis -Encourage ambulation. Faustina Beth MD Apr 13, 2017 14:32
[2017-04-13] MEDS: SUCRALFATE 1 GM TAB PO SCH (16:00)
--- NOTE | 2017-04-13 16:00 | HHI.PYPN ---
Subjective Remarks Patient was seen and case discussed with nursing. Patient is initially pleasant but becomes irritable and very demanding and perseverative concerning pain medications. Patient claims that the medical doctor said psychiatry would adjust her medications. Review of documentation from medical doctor shows that they should be managed outpatient. Otherwise patient says her mood has improved. She remains depressed but no longer has suicidal ideations intent or plan Mental Status Examination Appearance: Appropriate Consciousness: Alert Orientation: Person, Place Motor Activity: Normal gait Speech: Hesitant Language: Adequate Fund of Knowledge: Adequate Attention and Concentration: Easily Distracted Memory: Impaired Mood: Sad, Irritable Affect: Other (irritable) Thought Process & Associations: Other (perseverative) Thought Content: Bizarre thinking, Delusional Hallucination Type: None Delusion Type: Paranoid Suicidal Ideation: No Suicidal Plan: Javy Suicidal Intention: No Homicidal Ideation: No Homicidal Plan: No Homicidal Intention: No Insight: Fair Judgment: Adequate Results Labs Test 04/12/17 16:27 04/13/17 07:07 Blood Urea Nitrogen 5 MG/DL Creatinine 0.82 MG/DL Random Glucose 88 MG/DL Calcium Level 10.0 MG/DL Sodium Level 139 MEQ/L Potassium Level 3.1 MEQ/L 4.1 MEQ/L Chloride Level 106 MEQ/L Carbon Dioxide Level 23.5 MEQ/L Anion Gap 10 MEQ/L Estimat Glomerular Filtration Rate 78 ML/MIN Vitals/IOs Vital Signs Date Time Temp Pulse Resp B/P (MAP) Pulse Ox O2 Delivery O2 Flow Rate FiO2 04/13/17 06:04 98.9 85 16 106/61 (76) 100 04/09/17 20:24 Room Air Assessment & Plan Problem List: (1) Severe major depression with psychotic features ICD Codes: F32.3 - Major depressive disorder, single episode, severe with psychotic features Assessment & Plan Continue current treatment plan Justification for Cont. Inpt. Patient would decompensate in a less restrictive setting Allen Osorio DO Apr 13, 2017 16:00
[2017-04-13] MEDS: PANTOPRAZOLE SOD 20 MG DELAYED RELEASE TAB PO SCH (16:17)
[2017-04-13 17:44] VITALS: BP 130/79; PULSE 102; RESP 18; TEMP 97.5; O2SAT 100
[2017-04-13] MEDS: ACETAMINOPHEN 325 MG TAB PO PRN (19:17)
[2017-04-13] MEDS: MIRTAZAPINE 15 MG TAB PO SCH (20:43)
[2017-04-13] MEDS: QUEtiapine FUMARATE 100 MG TAB PO SCH (20:43)
[2017-04-13] MEDS: TEMAZEPAM 15 MG CAP PO SCH (20:43)
[2017-04-14 05:43] VITALS: BP 144/83; PULSE 94; RESP 18; TEMP 98.7; O2SAT 100
[2017-04-14] MEDS: SUCRALFATE 1 GM TAB PO SCH ×2 (06:04→15:34)
[2017-04-14] MEDS: PANTOPRAZOLE SOD 20 MG DELAYED RELEASE TAB PO SCH (08:33)
[2017-04-14] MEDS: QUEtiapine FUMARATE 25 MG TAB PO SCH ×2 (08:33→12:00)
[2017-04-14] MEDS: lamoTRIgine 100 MG TAB PO SCH ×2 (08:33→21:17)
[2017-04-14] MEDS: PROPRANOLOL HCL 10 MG TAB PO SCH ×2 (08:33→21:17)
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
--- NOTE | 2017-04-14 14:56 | HHI.PYPN ---
Subjective Remarks Please ignore duplicate note is entered in error. This is the correct note. Patient was seen and case discussed with nursing. Today, patient is less perseverative on opiate medications. She continues to gain insight into her mental health and says that she sees some of the psychosis she had as delusions. She does have hope for the future. Patient denies suicidal or homicidal thoughts ideation intent or plan Mental Status Examination Appearance: Appropriate Consciousness: Alert Orientation: Person, Place Motor Activity: Normal gait Speech: Hesitant Language: Adequate Fund of Knowledge: Adequate Attention and Concentration: Easily Distracted Memory: Impaired Mood: Sad Affect: Blunt Thought Process & Associations: Other (perseverative) Thought Content: Delusional (feels that there are men in her room at night) Hallucination Type: None Delusion Type: Paranoid Suicidal Ideation: No Suicidal Plan: No Suicidal Intention: No Homicidal Ideation: No Homicidal Plan: No Homicidal Intention: No Insight: Fair Judgment: Adequate Results Labs Test 04/14/17 09:15 Potassium Level 4.0 MEQ/L Vitals/IOs Vital Signs Date Time Temp Pulse Resp B/P (MAP) Pulse Ox O2 Delivery O2 Flow Rate FiO2 04/14/17 05:43 98.7 94 18 144/83 (103) 100 Assessment & Plan Problem List: (1) Severe major depression with psychotic features ICD Codes: F32.3 - Major depressive disorder, single episode, severe with psychotic features Assessment & Plan Continue current treatment plan Justification for Cont. Inpt. Patient will decompensate in a less restrictive setting Allen Osorio DO Apr 14, 2017 14:56
[2017-04-14 17:11] VITALS: BP 112/80; PULSE 97; RESP 17; TEMP 98.4; O2SAT 99
[2017-04-14 20:17] VITALS: BP 107/83; PULSE 100; RESP 18
[2017-04-14] MEDS: ONDANSETRON ODT 4 MG TAB SL PRN (21:16)
[2017-04-14] MEDS: QUEtiapine FUMARATE 100 MG TAB PO SCH (21:18)
[2017-04-14] MEDS: TEMAZEPAM 15 MG CAP PO SCH (21:18)
[2017-04-14] MEDS: MIRTAZAPINE 15 MG TAB PO SCH (21:18)
[2017-04-14] MEDS: LORazepam 1 MG TAB PO PRN (21:43)
[2017-04-15 05:50] VITALS: BP 108/68; PULSE 70; RESP 16; TEMP 97.9; O2SAT 100
[2017-04-15] MEDS: SUCRALFATE 1 GM TAB PO SCH ×2 (06:34→15:26)
[2017-04-15] MEDS: lamoTRIgine 100 MG TAB PO SCH ×2 (08:31→20:10)
[2017-04-15] MEDS: QUEtiapine FUMARATE 25 MG TAB PO SCH ×2 (08:32→11:07)
[2017-04-15] MEDS: PANTOPRAZOLE SOD 20 MG DELAYED RELEASE TAB PO SCH (08:32)
[2017-04-15] MEDS: PROPRANOLOL HCL 10 MG TAB PO SCH ×2 (08:54→20:10)
[2017-04-15] MEDS: LORazepam 1 MG TAB PO PRN ×2 (11:07→20:56)
[2017-04-15] MEDS: ACETAMINOPHEN 325 MG TAB PO PRN (15:26)
--- NOTE | 2017-04-15 17:51 | HHI.PYPN ---
Subjective Remarks Patient seen for follow-up, chart reviewed. Discussion with nursing staff reported patient endorsing AH and found crying in the morning. Patient was found participating in groups but able to engage in interview. Patient states that that she was feeling frustrated in knowing that she was believing things that never happened, experiencing AH and feels that she is struggling to move forward with her life. Patient states that she was upset this morning due to AH as well as AH last night night along with nightmares. She states that her mood hasn't been good and has been feeling stressed about feeling tired of being in [facility]. Patient was provided with supportive psychotherapy. Review of Systems Except as stated in HPI: all other systems reviewed are Neg Mental Status Examination Appearance: Appropriate Consciousness: Alert Orientation: Person, Place Motor Activity: Normal gait Speech: Unremarkable Language: Adequate Fund of Knowledge: Adequate Attention and Concentration: Easily Distracted Memory: Impaired Mood: Sad Affect: Sad (tearful at times) Thought Process & Associations: Intact, Other Thought Content: Appropriate Hallucination Type: Auditory Delusion Type: Paranoid Suicidal Ideation: No Suicidal Plan: No Suicidal Intention: No Homicidal Ideation: No Homicidal Plan: No Homicidal Intention: No Insight: Fair Judgment: Adequate Results Vitals/IOs Vital Signs Date Time Temp Pulse Resp B/P (MAP) Pulse Ox O2 Delivery O2 Flow Rate FiO2 04/15/17 05:50 97.9 70 16 108/68 (81) 100 Assessment & Plan Problem List: (1) Severe major depression with psychotic features ICD Codes: F32.3 - Major depressive disorder, single episode, severe with psychotic features Assessment & Plan Patient continues to endorse AH along with depressed mood due to degree of insight into her illness. Will increase quetiapine to 50mgAM/50mgPM/200mgHS, continue rest of medications. Discharge planning in progress. Justification for Cont. Inpt. At risk for decompensation if at lower level of care. Discharge Planning Patient to return back to her residence or parents residence once psychiatrically stable. Devyn Archibald MD Apr 15, 2017 17:51
[2017-04-15 18:00] VITALS: BP 136/85; PULSE 102; RESP 16; TEMP 96.6
[2017-04-15] MEDS: QUEtiapine FUMARATE 100 MG TAB PO SCH (20:10)
[2017-04-15] MEDS: MIRTAZAPINE 15 MG TAB PO SCH (20:10)
[2017-04-15] MEDS: TEMAZEPAM 15 MG CAP PO SCH (20:10)
[2017-04-15] MEDS: ONDANSETRON ODT 4 MG TAB SL PRN (20:45)
[2017-04-16 06:00] VITALS: BP 115/66; PULSE 71; RESP 16; TEMP 97.9; O2SAT 98
[2017-04-16] MEDS: SUCRALFATE 1 GM TAB PO SCH ×2 (06:18→14:48)
[2017-04-16] MEDS: PANTOPRAZOLE SOD 20 MG DELAYED RELEASE TAB PO SCH (08:39)
[2017-04-16] MEDS: QUEtiapine FUMARATE 25 MG TAB PO SCH ×2 (08:40→11:14)
[2017-04-16] MEDS: lamoTRIgine 100 MG TAB PO SCH ×2 (08:40→21:00)
[2017-04-16 08:47] VITALS: PULSE 88
[2017-04-16] MEDS: PROPRANOLOL HCL 10 MG TAB PO SCH ×2 (08:47→21:00)
[2017-04-16] MEDS ORDERED: QUEtiapine FUMARATE 25 MG TAB PO ONE (12:45)
[2017-04-16] MEDS: LORazepam 1 MG TAB PO PRN ×2 (14:39→21:34)
--- NOTE | 2017-04-16 14:42 | HHI.PYPN ---
Subjective Remarks Patient seen for follow-up, chart review. Patient was found eating lunch, cooperative interview patient reports that last evening she had a panic attack but had subsided but states that she started little better last evening. Patient states that she knew did not experience any auditory hallucinations today which she was happy about but did report feeling tearful this morning. Patient states that she tries to go to the groups while on the unit that her mood is anxious and tearful but overall okay. She mentions that she has have "waves of hopelessness". Patient reports that upon discharge she would like to have outpatient therapy provided. Review of Systems Except as stated in HPI: all other systems reviewed are Neg Mental Status Examination Appearance: Appropriate Consciousness: Alert Orientation: Person, Place Motor Activity: Normal gait Speech: Unremarkable Language: Adequate Fund of Knowledge: Adequate Attention and Concentration: Easily Distracted Memory: Impaired Mood: Sad (less so today) Affect: Sad (tearful at times) Thought Process & Associations: Intact, Other Thought Content: Appropriate Hallucination Type: Auditory (denies today) Delusion Type: Paranoid Suicidal Ideation: No Suicidal Plan: No Suicidal Intention: No Homicidal Ideation: No Homicidal Plan: No Homicidal Intention: No Insight: Fair Judgment: Adequate Results Vitals/IOs Vital Signs Date Time Temp Pulse Resp B/P (MAP) Pulse Ox O2 Delivery O2 Flow Rate FiO2 04/16/17 08:47 88 04/16/17 06:00 97.9 16 115/66 (82) 98 Assessment & Plan Problem List: (1) Severe major depression with psychotic features ICD Codes: F32.3 - Major depressive disorder, single episode, severe with psychotic features Assessment & Plan Patient reports improvement on decrease in auditory hallucinations and continues to feel anxious about wanting to regain her quality of life. We'll increase quetiapine to 50 mg a.m. and 100 mg p.m. and 200 mg at bedtime. Continue rest of medications. Discharge planning in progress Justification for Cont. Inpt. At risk for further decompensation if at lower level of care Discharge Planning Patient noted to have some improvement initially continues to improve likely for discharge 1-2 days. Devyn Archibald MD Apr 16, 2017 14:42
[2017-04-16 15:50] VITALS: BP 142/63; PULSE 124; RESP 18; TEMP 97.1; O2SAT 100
--- NOTE | 2017-04-16 16:02 | HHI.PR ---
Subjective Remarks Improvement in GI symptoms. Improvement in tachycardia with propanolol. She doesn't feel propranolol is helping her anxiety but she is happy with the benefit on her heart rhythm. Today her complaints are pain and constipation. Objective Vital Signs Date Time Temp Pulse Resp B/P (MAP) Pulse Ox O2 Delivery O2 Flow Rate FiO2 04/16/17 08:47 88 04/16/17 06:00 97.9 71 16 115/66 (82) 98 04/15/17 18:00 96.6 102 16 136/85 (102) Result Diagram: 04/09/17 1410 04/14/17 0915 Objective Remarks GENERAL: NAD, A&Ox3 HEAD: Normocephalic. NECK: Supple, trachea midline. No lymphadenopathy. EYES: No scleral icterus. No injection or drainage. CARDIOVASCULAR: Regular rate and rhythm without murmurs, gallops, or rubs. RESPIRATORY: Breath sounds equal bilaterally. No accessory muscle use. GASTROINTESTINAL: Abdomen soft, non-tender, nondistended. MUSCULOSKELETAL: No cyanosis, or edema. SKIN: Warm and dry. NEURO: No focal neurological deficitis. 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 Status: Acute (5) Psychosis ICD Code: F29 - Unspecified psychosis not due to a substance or known physiological condition Status: Acute Assessment and Plan Assessment and Plan This is a 37-year-old female with celeste danlos syndrome, gastroparesis, chronic pain syndrome, Lee who presented with depression with psychosis Constipation Twice a day Colace Twice a day laxatives as needed Monitor for bowel movement Depression with psychosis Continue management per psychiatry Vitamin D deficiency Continue supplementation Chronic pain syndrome Naprosyn provided, for a limited time only (3 days) Gastroparesis Continue Zofran when necessary Acid reflux Symptoms improve Continue Protonix and Carafate hx of POTS syndrome Improved on propranolol Follow heart rate DVT prophylaxis Patient is ambulatory, no need for treatment Connor Jackson MD Apr 16, 2017 16:02
[2017-04-16] MEDS ORDERED: LACTULOSE SYRUP 20 GM/30 ML CUP PO PRN (16:15)
[2017-04-16] MEDS: DOCUSATE SODIUM 100 MG CAP PO SCH (21:00)
[2017-04-16] MEDS: MIRTAZAPINE 15 MG TAB PO SCH (21:00)
[2017-04-16] MEDS: NAPROXEN 250 MG TAB PO SCH (21:00)
[2017-04-16] MEDS: TEMAZEPAM 15 MG CAP PO SCH (21:00)
[2017-04-16] MEDS: QUEtiapine FUMARATE 100 MG TAB PO SCH (21:00)
[2017-04-16] MEDS: ONDANSETRON ODT 4 MG TAB SL PRN (21:34)
[2017-04-17 06:03] VITALS: BP 107/75; PULSE 92; RESP 16; TEMP 98.2; O2SAT 100
[2017-04-17] MEDS: SUCRALFATE 1 GM TAB PO SCH ×2 (06:55→16:41)
[2017-04-17] MEDS: DOCUSATE SODIUM 100 MG CAP PO SCH ×2 (07:43→20:41)
[2017-04-17] MEDS: NAPROXEN 250 MG TAB PO SCH ×2 (07:43→20:41)
[2017-04-17] MEDS: PROPRANOLOL HCL 10 MG TAB PO SCH ×2 (07:43→20:41)
[2017-04-17] MEDS: PANTOPRAZOLE SOD 20 MG DELAYED RELEASE TAB PO SCH (07:43)
[2017-04-17] MEDS: QUEtiapine FUMARATE 25 MG TAB PO SCH (07:43)
[2017-04-17] MEDS: lamoTRIgine 100 MG TAB PO SCH ×2 (07:44→20:41)
[2017-04-17] MEDS: QUEtiapine FUMARATE 100 MG TAB PO SCH ×2 (12:02→20:41)
[2017-04-17] MEDS: LORazepam 1 MG TAB PO PRN ×2 (12:03→20:41)
[2017-04-17] MEDS: ONDANSETRON ODT 4 MG TAB SL PRN (16:42)
--- NOTE | 2017-04-17 16:47 | HHI.PYPN ---
Subjective Remarks Patient seen for follow-up, chart reviewed. Patient found in day room participating in activities. She states that she has been feeling "pretty good" , noted to have slept well with no noted nightmares. She states that she had a panic attack yesterday which lasted for about 30 min. which she experienced AH during that time and ceased after she was not longer having anxiety. She reports that she has not had AH otherwise. She reports feeling "good" and plans on continuing her treatment along with ECT once discharged. Review of Systems Except as stated in HPI: all other systems reviewed are Neg Mental Status Examination Appearance: Appropriate Consciousness: Alert Orientation: Person, Place Motor Activity: Normal gait Speech: Unremarkable Language: Adequate Fund of Knowledge: Adequate Attention and Concentration: Easily Distracted Memory: Impaired Mood: Appropriate Affect: Appropriate Thought Process & Associations: Intact Thought Content: Appropriate Hallucination Type: Auditory (once today) Suicidal Ideation: No Suicidal Plan: No Suicidal Intention: No Homicidal Ideation: No Homicidal Plan: No Homicidal Intention: No Insight: Fair Judgment: Adequate Results Vitals/IOs Vital Signs Date Time Temp Pulse Resp B/P (MAP) Pulse Ox O2 Delivery O2 Flow Rate FiO2 04/17/17 06:03 98.2 92 16 107/75 (86) 100 Assessment & Plan Problem List: (1) Severe major depression with psychotic features ICD Codes: F32.3 - Major depressive disorder, single episode, severe with psychotic features Assessment & Plan Patient with improved mood and decrease in AH along with more organization. Patient to continue current treatment. Likely for discharge tomorrow. Discharge planning in progress. Justification for Cont. Inpt. At risk for decompensation if at lower level of care. Discharge Planning Patient to return back to residence once psychiatrically stable. Devyn Archibald MD Apr 17, 2017 16:47
[2017-04-17 17:00] VITALS: BP 127/77; PULSE 96; RESP 18; TEMP 97.4; O2SAT 100
--- NOTE | 2017-04-17 17:33 | HHI.PR ---
Subjective Remarks Bowel movement has occurred today. No need for naproxen today. No new complaints. Objective Vital Signs Date Time Temp Pulse Resp B/P (MAP) Pulse Ox O2 Delivery O2 Flow Rate FiO2 04/17/17 17:00 97.4 96 18 127/77 (94) 100 04/17/17 06:03 98.2 92 16 107/75 (86) 100 Result Diagram: 04/14/17 0915 Objective Remarks GENERAL: NAD, A&Ox3 HEAD: Normocephalic. NECK: Supple, trachea midline. No lymphadenopathy. EYES: No scleral icterus. No injection or drainage. CARDIOVASCULAR: Regular rate and rhythm without murmurs, gallops, or rubs. RESPIRATORY: Breath sounds equal bilaterally. No accessory muscle use. GASTROINTESTINAL: Abdomen soft, non-tender, nondistended. MUSCULOSKELETAL: No cyanosis, or edema. SKIN: Warm and dry. NEURO: No focal neurological deficitis. 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 Status: Acute (5) Psychosis ICD Code: F29 - Unspecified psychosis not due to a substance or known physiological condition Status: Acute Assessment and Plan Assessment and Plan This is a 37-year-old female with celeste danlos syndrome, gastroparesis, chronic pain syndrome, Lee who presented with depression with psychosis Constipation Resolved Continue Twice a day Colace Continue Twice a day laxatives as needed Monitor for bowel movement Depression with psychosis Continue management per psychiatry Vitamin D deficiency Continue supplementation Chronic pain syndrome Naprosyn provided, for a limited time only (3 days) Gastroparesis Continue Zofran when necessary Acid reflux Symptoms improve Continue Protonix and Carafate hx of POTS syndrome Improved on propranolol Heart rate is showing stability Occasional episode of tachycardia are to be expected As long as her average heart rates are not tachycardic no changes planned Ok to DC on prior dosing of metoprolol, as she has no benefit to her anxiety on propranolol DVT prophylaxis Patient is ambulatory, no need for treatment Discharge planning Medically stable for discharge once cleared by psychiatry Medical team will sign off today Connor Jackson MD Apr 17, 2017 17:33
[2017-04-17] MEDS: TEMAZEPAM 15 MG CAP PO SCH (20:41)
[2017-04-17] MEDS: MIRTAZAPINE 15 MG TAB PO SCH (20:41)
[2017-04-17 21:12] VITALS: BP 127/77; PULSE 96; RESP 18; TEMP 97.4; O2SAT 100
[2017-04-18 05:48] VITALS: BP 135/76; PULSE 95; RESP 16; TEMP 98.2; O2SAT 100
[2017-04-18] MEDS: SUCRALFATE 1 GM TAB PO SCH (06:11)
[2017-04-18] MEDS: DOCUSATE SODIUM 100 MG CAP PO SCH (08:46)
[2017-04-18] MEDS: PANTOPRAZOLE SOD 20 MG DELAYED RELEASE TAB PO SCH (08:46)
[2017-04-18] MEDS: NAPROXEN 250 MG TAB PO SCH (08:46)
[2017-04-18] MEDS: QUEtiapine FUMARATE 25 MG TAB PO SCH (08:46)
[2017-04-18] MEDS: PROPRANOLOL HCL 10 MG TAB PO SCH (08:47)
[2017-04-18] MEDS: lamoTRIgine 100 MG TAB PO SCH (08:47)
[2017-04-18] MEDS ORDERED: NAPR250T PO (11:14)
[2017-04-18] MEDS ORDERED: REST15CA PO (11:14)
[2017-04-18] MEDS ORDERED: QUET1TAB8 PO (11:14)
[2017-04-18] MEDS ORDERED: MIRTA15 PO (11:14)
[2017-04-18] MEDS ORDERED: ERGO1CAP30 PO (11:14)
[2017-04-18] MEDS ORDERED: QUET5TAB PO (11:14)
[2017-04-18] MEDS ORDERED: PROP10TA6 PO (11:14)
[2017-04-18] MEDS ORDERED: DOCU1CAP39 PO (11:14)
[2017-04-18] MEDS ORDERED: CARA1TAB6 PO (11:14)
[2017-04-18] MEDS ORDERED: LAMO100 PO (11:14)
[2017-04-18] MEDS ORDERED: QUET1TAB9 PO (11:14)
[2017-04-18] MEDS ORDERED: PANT20 PO (11:14)
[2017-04-18] MEDS: LORazepam 1 MG TAB PO PRN (11:17)
[2017-04-18] MEDS: QUEtiapine FUMARATE 100 MG TAB PO SCH (11:17)
[2017-04-18] MEDS: ONDANSETRON ODT 4 MG TAB SL PRN (12:22)
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
== END 2017-04-18 13:55 | disposition home or self-care (01) | DRG 885 ==
LOC: NEPD 13:42 → NEDA 04-10 14:20 → H270 04-10 15:45
PROVIDERS: ADMIT Student in an Organized Health Care Education/Training Program; ATTEND Student in an Organized Health Care Education/Training Program
DX: F32.3 Major depressive disorder, single episode, severe with psychotic features (principal); Q79.6 Ehlers-Danlos syndromes; K31.84 Gastroparesis; I49.8 Other specified cardiac arrhythmias; Z91.14 Patient's other noncompliance with medication regimen; E87.6 Hypokalemia; G89.4 Chronic pain syndrome; E55.9 Vitamin D deficiency, unspecified; F43.10 Post-traumatic stress disorder, unspecified; K21.9 Gastro-esophageal reflux disease without esophagitis; R00.0 Tachycardia, unspecified
CPT/HCPCS: 80048; 80053; 80061; 80307; 82306; 82607; 83036; 83735; 84132; 84443; 84703; 85025; 93005; 96361; 96374; J2060; J7030

== ENCOUNTER 2017-06-02 23:31 | Inpatient (IN) | payer OTHER ==
[~2017-06-02] VITALS: Ht 149.9 cm; Wt 53.1 kg
[~2017-06-02 23:31] MED LIST changes: +CARA1TAB6 PO; +DOCU1CAP39 PO; +LAMO100 PO; -LAMO150 PO; -LURA80 PO; +MIRTA15 PO; +NAPR250T4 PO; +PANT20 PO; +PROP10TA6 PO; +QUET1TAB8 PO; +QUET1TAB9 PO; +QUET5TAB PO; +REST15CA PO; +SERO100T PO; +SERO50TA PO; +VITA500012 PO
[2017-06-03] VITALS: BP 118/74; PULSE 113; RESP 19; TEMP 98.9; O2SAT 100
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
[2017-06-03 00:09] LABS: AUTOMATED NEUTROPHIL # 3.1 TH/MM3 (1.8-7.7); BASOPHIL % 0.4 % (0.0-2.0); EOSINOPHIL # 0.1 TH/MM3 (0-0.4); EOSINOPHIL % 1.2 % (0.0-4.0); HEMATOCRIT 36.3 % (35.0-46.0); HEMO FLAGS DIFF FINAL; LYMPH % 39.4 % (9.0-44.0); LYMPHOCYTE # 2.5 TH/MM3 (1.0-4.8); MEAN CELL VOLUME 86.9 FL (80.0-100.0); MEAN CORPUSCULAR HEMOGLOBIN 29.5 PG (27.0-34.0); MONO % 8.7 % (0.0-8.0); NEUT % 50.3 % (16.0-70.0); PLATELET COUNT 320 TH/MM3 (150-450); RED BLOOD COUNT 4.18 MIL/MM3 (4.00-5.30); RED CELL DISTRIBUTION WIDTH 14.9 % (11.6-17.2); WHITE BLOOD COUNT 6.3 TH/MM3 (4.0-11.0)
[2017-06-03 00:29] LABS: ALKALINE PHOSPHATASE 69 U/L (45-117); TOTAL BILIRUBIN ADULT 0.3 MG/DL (0.2-1.0)
[2017-06-03 00:33] LABS: ALCOHOL 165 MG/DL (0-5); ALT (GPT) 28 U/L (10-53); ANION GAP 7 MEQ/L (5-15); AST (GOT) 25 U/L (15-37); BICARBONATE 26.2 MEQ/L (21.0-32.0); BLOOD UREA NITROGEN 13 MG/DL (7-18); CHLORIDE 111 MEQ/L (98-107); GLOMERULAR FILTRATION RATE 45 ML/MIN (>89); POTASSIUM 4.4 MEQ/L (3.5-5.1); SODIUM (NA) 144 MEQ/L (136-145)
[2017-06-03 08:14] VITALS: BP 120/74; PULSE 105; RESP 15; O2SAT 100
[2017-06-03 12:07] VITALS: BP 136/82; PULSE 129; RESP 20; O2SAT 100
[2017-06-03] MEDS ORDERED: CARI1CAP2 PO (12:13)
[2017-06-03] MEDS ORDERED: METO-309 PO (12:13)
[2017-06-03] MEDS ORDERED: SERO400T PO (12:13)
[2017-06-03] MEDS ORDERED: BUTA1CAP PO (12:13)
[2017-06-03] MEDS ORDERED: MORP1TAB24 PO (12:13)
[2017-06-03] MEDS ORDERED: CYCL5TAB PO (12:13)
[2017-06-03] MEDS ORDERED: REST30CA PO (12:13)
[2017-06-03] MEDS ORDERED: METOPROLOL TARTRATE 25 MG TAB PO ONE (12:30)
[2017-06-03 12:46] VITALS: BP_SYST 112; BP_SYST 12; BP_DIAS 76; PULSE 112; RESP 18; TEMP 99; O2SAT 100
[2017-06-03] MEDS ORDERED: MAGNESIUM HYDROXIDE SUSP 30 ML CUP PO PRN (13:45)
[2017-06-03] MEDS ORDERED: CYCLOBENZAPRINE HCL 10 MG TAB PO PRN (13:45)
[2017-06-03] MEDS ORDERED: ACETAMINOPHEN 325 MG TAB PO PRN (13:45)
[2017-06-03] MEDS ORDERED: ALUMINUM/MAGNESIUM/SIMETH 30 ML CUP PO PRN (13:45)
[2017-06-03] MEDS: lamoTRIgine 100 MG TAB PO SCH ×2 (14:30→21:01)
[2017-06-03] MEDS: NICOTINE 21 MG/24 HR PATCH T-DERMAL SCH (14:45)
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
[2017-06-03 18:34] VITALS: BP 135/88; PULSE 108; RESP 18; O2SAT 100
[2017-06-03 19:35] VITALS: BP 135/93; PULSE 105; RESP 17; TEMP 98.9; O2SAT 100
--- NOTE | 2017-06-03 19:51 | EKG ---
Date Performed: 06/03/2017 Time Performed: 00:19:37 PTAGE: 37 years EKG: SINUS TACHYCARDIA NONSPECIFIC T-WAVE ABNORMALITY Since previous tracing, no significant sreedhar nge noted ABNORMAL RHYTHM ECG PREVIOUS TRACING : 04/11/2017 11.04 DOCTOR: Maynor Noonan Interpretating Date/Time 06/03/2017 19:50:30
[2017-06-03] MEDS ORDERED: LORazepam 1 MG TAB PO PRN (20:15)
[2017-06-03] MEDS ORDERED: FLUMAZENIL 0.5 MG/5 ML VIAL IV PUSH PRN (20:15)
[2017-06-03] MEDS ORDERED: LORazepam 2 MG TAB PO PRN (20:15)
[2017-06-03] MEDS ORDERED: LORazepam 2 MG/ML VIAL IV PUSH PRN ×4 (20:15)
[2017-06-03] MEDS: hydrOXYzine HCL 50 MG TAB PO PRN (20:17)
[2017-06-03] MEDS: METOPROLOL TARTRATE 50 MG TAB PO SCH (21:00)
[2017-06-03] MEDS: QUEtiapine FUMARATE 200 MG TAB PO SCH (21:02)
[2017-06-04 05:37] VITALS: BP 124/76; PULSE 97; RESP 16; TEMP 98.1; O2SAT 100
[2017-06-04] MEDS: lamoTRIgine 100 MG TAB PO SCH ×2 (09:00→20:52)
[2017-06-04] MEDS: METOPROLOL TARTRATE 50 MG TAB PO SCH ×2 (09:00→20:53)
[2017-06-04] MEDS: NICOTINE 21 MG/24 HR PATCH T-DERMAL SCH (09:00)
[2017-06-04 09:08] LABS: BICARBONATE 23.1 MEQ/L (21.0-32.0); BLOOD UREA NITROGEN 9 MG/DL (7-18); GLOMERULAR FILTRATION RATE 73 ML/MIN (>89)
[2017-06-04 09:14] LABS: HDL CHOLESTEROL 76.1 MG/DL (40.0-60.0); LDL CHOLESTEROL 124 MG/DL (0-99)
[2017-06-04 09:32] LABS: ANION GAP 10 MEQ/L (5-15); CHLORIDE 106 MEQ/L (98-107); POTASSIUM 3.5 MEQ/L (3.5-5.1); SODIUM (NA) 139 MEQ/L (136-145)
[2017-06-04] MEDS: PROMETHAZINE HCL 12.5 MG SUPP RECTAL PRN ×2 (09:41→15:54)
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
[2017-06-04 14:13] LABS: HEMOGLOBIN A1a 1.3 %; HEMOGLOBIN A1b 0.8 %; HEMOGLOBIN F 1.3 %; HEMOGLOBIN LA1C 2.1 %; HEMOGLOBIN P3 3.6 %
[2017-06-04] MEDS: hydrOXYzine HCL 50 MG TAB PO PRN (17:01)
[2017-06-04 17:45] VITALS: BP 142/87; PULSE 101; RESP 18; TEMP 98.5; O2SAT 100
[2017-06-04] MEDS: QUEtiapine FUMARATE 200 MG TAB PO SCH (20:53)
[2017-06-04] MEDS ORDERED: TEMAZEPAM 15 MG CAP PO SCH (21:00)
[2017-06-04] MEDS ORDERED: MIRTAZAPINE 15 MG TAB PO SCH (21:00)
[2017-06-05] MEDS: hydrOXYzine HCL 50 MG TAB PO PRN ×2 (04:53→12:55)
[2017-06-05 06:03] VITALS: BP 117/67; PULSE 101; RESP 18; TEMP 97.7; O2SAT 100
[2017-06-05] MEDS: lamoTRIgine 100 MG TAB PO SCH (08:29)
[2017-06-05] MEDS: METOPROLOL TARTRATE 50 MG TAB PO SCH (08:30)
[2017-06-05] MEDS: NICOTINE 21 MG/24 HR PATCH T-DERMAL SCH (08:39)
--- NOTE | 2017-06-05 08:57 | PD.TTN ---
Patient Problems 1. Discharge planning 2. Medication compliance 3. Knowledge deficit 4. Lack of coping skills Progress Toward Goals Provider Present: Dr. Nena Archibald Provider Input: Patient has been restarted on medication regiment. Patient is known to be noncompliant with medications. Patient had been on ECT but then stopped treatment. Nurse(s) Input: Patient endorses feelings of anxiety and has been compliant with medications. Patient is attending to ADLs. Psychiatric Counselors Present: TANIA Nguyen Psych Therapist Input: Patient has outpatient connections with Dr. Juares and will have pending discharge Saturday. Patient will return back home to boyfriend. Leela Treviño Jun 05, 2017 08:57
[2017-06-05] MEDS ORDERED: PANTOPRAZOLE SOD 20 MG DELAYED RELEASE TAB PO SCH (09:00)
[2017-06-05] MEDS ORDERED: MIRTA15 PO (11:36)
[2017-06-05] MEDS ORDERED: REST15CA PO (11:36)
[2017-06-05] MEDS ORDERED: SERO400T PO (11:36)
[2017-06-05] MEDS ORDERED: LAMO100 PO (11:36)
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
== END 2017-06-05 15:12 | disposition home or self-care (01) | DRG 885 ==
LOC: NEPD 23:31 → NEDA 06-03 13:58 → H270 06-03 19:39
PROVIDERS: ADMIT Student in an Organized Health Care Education/Training Program; ATTEND Student in an Organized Health Care Education/Training Program
DX: F25.0 Schizoaffective disorder, bipolar type (principal); K31.84 Gastroparesis; R45.851 Suicidal ideations; I10 Essential (primary) hypertension; F41.0 Panic disorder [episodic paroxysmal anxiety]; F10.129 Alcohol abuse with intoxication, unspecified; R00.0 Tachycardia, unspecified; F43.10 Post-traumatic stress disorder, unspecified; J45.909 Unspecified asthma, uncomplicated; Y90.6 Blood alcohol level of 120-199 mg/100 ml; Z79.899 Other long term (current) drug therapy; Z91.410 Personal history of adult physical and sexual abuse; Z91.5 Personal history of self-harm
CPT/HCPCS: 80048; 80053; 80061; 80307; 83036; 84703; 85025; 93005; 99285

== ENCOUNTER 2018-01-12 03:10 | Inpatient (IN) ==
--- NOTE | 2018-01-12 04:00 | ED ---
HPI General Chief complaint: Psychiatric Symptoms Stated complaint: Psych Time Seen by Provider: 01/12/18 03:58 History of Present Illness HPI narrative: This is a 37-year-old female with reported history of schizoaffective disorder who presents under [place] act initiated by the Police Department. According to the paperwork the patient has been not eating for the past few days in an effort to hurt herself. The patient reports that she had an argument with the next partner this evening. She does admit that she has not been eating over the past few days but she says that this was just because she is not taking care of herself and she was not trying to kill herself. She does report that she has history of schizoaffective disorder and feelings of depression with occasional passive suicidal thoughts but none today. She denies acting out any suicidal thoughts recently. Denies any drug use. Endorses alcohol use. Symptoms are moderate, aggravated by life stressors with no relieving factors. She reports that her psychiatrist is Dr. Parr and she is compliant with her psychiatric medication regimen. No other complaints. Related Data Home Medications Medication Instructions Recorded Confirmed bupropion HCl [Wellbutrin XL] 150 mg PO QAM 01/12/18 01/12/18 lamotrigine [Lamictal] 200 mg PO BID 01/12/18 01/12/18 metoprolol tartrate 25 mg PO BID 01/12/18 01/12/18 mirtazapine 45 mg PO DAILY 01/12/18 01/12/18 quetiapine [Seroquel XR] 150 mg PO DAILY 01/12/18 01/12/18 rosuvastatin [Crestor] 5 mg PO DAILY 01/12/18 01/12/18 temazepam 30 mg PO HS 01/12/18 01/12/18 Allergies Allergy/AdvReac Type Severity Reaction Status Date / Time haloperidol Allergy Severe SPASMS Unverified 06/03/17 10:08 tramadol Allergy Severe HIVES Unverified 06/03/17 10:08 diatrizoate meglumine Allergy Mild NAUSEA Unverified 06/03/17 10:08 gadobenic acid Allergy Mild NAUSEA Unverified 06/03/17 10:08 gadodiamide Allergy Mild NAUSEA Unverified 06/03/17 10:08 gadoteridol Allergy Mild NAUSEA Unverified 06/03/17 10:08 iodixanol Allergy Mild NAUSEA Unverified 06/03/17 10:08 iohexol Allergy Mild NAUSEA Unverified 06/03/17 10:08 trazodone Allergy Unknown Unverified 06/03/17 10:08 ketamine AdvReac Mild ANXIETY Unverified 06/03/17 10:08 Review of Systems Except as stated in HPI: all other systems reviewed are negative PMFSH Social History Social History Substance History: No History of Abuse Second Hand Smoke Exposure: No Smoking Status: Never smoker How Often Do You Have a Drink Containing Alcohol: Monthly or less Recent Travel in [facility] within the Last 8 Weeks: No Recent Out of Country Travel within the Last 8 Weeks: No Exam Narrative Exam Narrative: GENERAL: Well-developed well-nourished female no acute distress SKIN: Warm and dry. HEAD: Atraumatic. Normocephalic. EYES: Pupils equal and round. No scleral icterus. No injection or drainage. ENT: No nasal bleeding or discharge. Mucous membranes pink and moist. NECK: Trachea midline. No JVD. CARDIOVASCULAR: Regular rate and rhythm. No murmur appreciated. RESPIRATORY: No accessory muscle use. Clear to auscultation. Breath sounds equal bilaterally. GASTROINTESTINAL: Abdomen soft, non-tender, nondistended. Hepatic and splenic margins not palpable. MUSCULOSKELETAL: No obvious deformities. No clubbing. No cyanosis. No edema. NEUROLOGICAL: Awake and alert. No obvious cranial nerve deficits. Motor grossly within normal limits. Normal speech. PSYCHIATRIC: Depressed mood; insight and judgment normal. Course Initial Documented Vital Signs Temperature 98.9 F 01/12/18 03:55 Pulse Rate 126 H 01/12/18 03:55 Respiratory Rate 18 01/12/18 03:55 Blood Pressure 134/91 H 01/12/18 03:55 Pulse Oximetry 96 01/12/18 03:55 Last Documented Vital Signs Temperature 99 F 01/14/18 06:00 Pulse Rate 91 H 01/14/18 06:00 Respiratory Rate 20 01/14/18 06:00 Blood Pressure 133/80 01/14/18 06:00 Pulse Oximetry 96 01/14/18 06:00 Medical Decision Making MDM Narrative Medical decision making narrative: Mental health screening discussed with the patient. Psychiatric screen ordered. Lab work has been reviewed, drug screen is positive for benzodiazepines and barbiturates, alcohol levels 204. The patient is medically cleared for psychiatric disposition. Differential Diagnosis Differential Diagnosis: Adjustment reaction, acute psychosis, substance-induced mood disorder, major depressive disorder Lab Data Result diagrams: 01/12/18 04:00 01/14/18 07:52 Lab Results 01/12/18 01/12/18 01/12/18 Range/Units 04:00 04:00 04:00 WBC 7.6 (4.0-11.0) th/mm3 RBC 4.73 (4.00-5.30) mil/mm3 Hgb 14.4 (11.6-15.3) gm/dL Hct 42.8 (35.0-46.0) % MCV 90.5 (80.0-100.0) fL MCH 30.5 (27.0-34.0) pg MCHC 33.7 (32.0-36.0) % RDW 13.2 (11.6-17.2) % Plt Count 305 (150-450) th/mm3 MPV 8.2 (7.0-11.0) fL Neut % (Auto) 46.8 (16.0-70.0) % Lymph % (Auto) 42.4 (9.0-44.0) % [place] % (Auto) 5.8 (0.0-8.0) % Eos % (Auto) 4.2 H (0.0-4.0) % Baso % (Auto) 0.8 (0.0-2.0) % Neut # (Auto) 3.6 (1.8-7.7) th/mm3 Lymph # (Auto) 3.2 (1.0-4.8) th/mm3 [place] # (Auto) 0.4 (0.0-0.9) th/mm3 Eos # (Auto) 0.3 (0.0-0.4) th/mm3 Baso # (Auto) 0.1 (0.0-0.2) th/mm3 WBC Differential . Differential Comment Auto diff final Sodium 142 (136-145) meq/L Potassium 3.7 (3.5-5.1) meq/L Chloride 109 H (98-107) meq/L Carbon Dioxide 19.8 L (21.0-32.0) meq/L Anion Gap 13 (5-15) meq/L BUN 12 (7-18) mg/dL Creatinine 0.88 (0.50-1.00) mg/dL Estimated GFR 72 L (>89) mL/min Random Glucose 89 (74-106) mg/dL Hemoglobin A1c (4.3-6.0) % Calcium 9.5 (8.5-10.1) mg/dL Total Bilirubin Less than 0.1 L (0.2-1.0) mg/dL AST 15 (15-37) U/L ALT 28 (10-53) U/L Alkaline Phosphatase 80 (45-117) U/L Total Creatine Kinase (26-192) U/L Total Protein 8.6 H (6.4-8.2) g/dL Albumin 4.4 (3.4-5.0) g/dL Triglycerides (42-150) mg/dL Cholesterol (120-200) mg/dL LDL Cholesterol, Calc (0-99) mg/dL HDL Cholesterol (40.0-60.0) mg/dL Cholesterol/HDL Ratio Ratio TSH 1.080 (0.358-3.740) uIU/mL Urine Color (Yellw/Straw) Urine Clarity (Clear) Urine pH (5.0-8.5) Ur Specific [place] (1.002-1.035) Urine Protein (Neg-Trace) mg/dL Urine Glucose (UA) (Negative) mg/dL Urine Ketones (Negative) mg/dL Urine Occult Blood (Negative) Urine Nitrate (Negative) Urine Bilirubin (Negative) Urine Urobilinogen (Less than 2) mg/dL Ur Leukocyte Esterase (Negative) Urine RBC (0-3) /hpf Urine WBC (0-5) /hpf Ur Squamous Epith Cells (0-5) /hpf Urine Bacteria (None) /hpf Urine Yeast (None) /hpf Micro UA Comment Urine Culture Comments Urine Opiates Screen Neg (Neg) Ur Barbiturates Screen Pos H (Neg) Ur Amphetamines Screen Neg (Neg) U Benzodiazepines Scrn Pos H (Neg) Urine Cocaine Screen Neg (Neg) U Cannabinoids Screen Neg (Neg) Serum Alcohol 204 H (0-5) mg/dL 01/12/18 01/13/18 01/14/18 Range/Units 17:59 16:00 07:52 WBC (4.0-11.0) th/mm3 RBC (4.00-5.30) mil/mm3 Hgb (11.6-15.3) gm/dL Hct (35.0-46.0) % MCV (80.0-100.0) fL MCH (27.0-34.0) pg MCHC (32.0-36.0) % RDW (11.6-17.2) % Plt Count (150-450) th/mm3 MPV (7.0-11.0) fL Neut % (Auto) (16.0-70.0) % Lymph % (Auto) (9.0-44.0) % [place] % (Auto) (0.0-8.0) % Eos % (Auto) (0.0-4.0) % Baso % (Auto) (0.0-2.0) % Neut # (Auto) (1.8-7.7) th/mm3 Lymph # (Auto) (1.0-4.8) th/mm3 [place] # (Auto) (0.0-0.9) th/mm3 Eos # (Auto) (0.0-0.4) th/mm3 Baso # (Auto) (0.0-0.2) th/mm3 WBC Differential Differential Comment Sodium 142 141 (136-145) meq/L Potassium 4.2 3.3 L D (3.5-5.1) meq/L Chloride 110 H 105 (98-107) meq/L Carbon Dioxide 20.4 L 22.1 (21.0-32.0) meq/L Anion Gap 12 14 (5-15) meq/L BUN 11 7 (7-18) mg/dL Creatinine 0.64 0.66 (0.50-1.00) mg/dL Estimated GFR Greater than 89 Greater than 89 (>89) mL/min Random Glucose 74 61 L (74-106) mg/dL Hemoglobin A1c (4.3-6.0) % Calcium 8.7 D 9.1 (8.5-10.1) mg/dL Total Bilirubin 0.3 (0.2-1.0) mg/dL AST 21 (15-37) U/L ALT 22 (10-53) U/L Alkaline Phosphatase 71 (45-117) U/L Total Creatine Kinase 142 (26-192) U/L Total Protein 7.3 D (6.4-8.2) g/dL Albumin 3.9 (3.4-5.0) g/dL Triglycerides 168 H (42-150) mg/dL Cholesterol 179 (120-200) mg/dL LDL Cholesterol, Calc 84 (0-99) mg/dL HDL Cholesterol 61.7 H (40.0-60.0) mg/dL Cholesterol/HDL Ratio 2.90 Ratio TSH (0.358-3.740) uIU/mL Urine Color Red (Yellw/Straw) Urine Clarity Hazy H (Clear) Urine pH 6.0 (5.0-8.5) Ur Specific [place] 1.004 (1.002-1.035) Urine Protein Negative (Neg-Trace) mg/dL Urine Glucose (UA) Negative (Negative) mg/dL Urine Ketones 20 (Negative) mg/dL Urine Occult Blood Small H (Negative) Urine Nitrate Negative (Negative) Urine Bilirubin Negative (Negative) Urine Urobilinogen Less than 2 (Less than 2) mg/dL Ur Leukocyte Esterase Large H (Negative) Urine RBC 9 H (0-3) /hpf Urine WBC 14 H (0-5) /hpf Ur Squamous Epith Cells 7 (0-5) /hpf Urine Bacteria Moderate H (None) /hpf Urine Yeast Few H (None) /hpf Micro UA Comment Culture indicated Urine Culture Comments Culture indicated Urine Opiates Screen (Neg) Ur Barbiturates Screen (Neg) Ur Amphetamines Screen (Neg) U Benzodiazepines Scrn (Neg) Urine Cocaine Screen (Neg) U Cannabinoids Screen (Neg) Serum Alcohol (0-5) mg/dL 01/14/ Range/Units 07:52 WBC (4.0-11.0) th/mm3 RBC (4.00-5.30) mil/mm3 Hgb (11.6-15.3) gm/dL Hct (35.0-46.0) % MCV (80.0-100.0) fL MCH (27.0-34.0) pg MCHC (32.0-36.0) % RDW (11.6-17.2) % Plt Count (150-450) th/mm3 MPV (7.0-11.0) fL Neut % (Auto) (16.0-70.0) % Lymph % (Auto) (9.0-44.0) % [place] % (Auto) (0.0-8.0) % Eos % (Auto) (0.0-4.0) % Baso % (Auto) (0.0-2.0) % Neut # (Auto) (1.8-7.7) th/mm3 Lymph # (Auto) (1.0-4.8) th/mm3 [place] # (Auto) (0.0-0.9) th/mm3 Eos # (Auto) (0.0-0.4) th/mm3 Baso # (Auto) (0.0-0.2) th/mm3 WBC Differential Differential Comment Sodium (136-145) meq/L Potassium (3.5-5.1) meq/L Chloride (98-107) meq/L Carbon Dioxide (21.0-32.0) meq/L Anion Gap (5-15) meq/L BUN (7-18) mg/dL Creatinine (0.50-1.00) mg/dL Estimated GFR (>89) mL/min Random Glucose (74-106) mg/dL Hemoglobin A1c 4.9 (4.3-6.0) % Calcium (8.5-10.1) mg/dL Total Bilirubin (0.2-1.0) mg/dL AST (15-37) U/L ALT (10-53) U/L Alkaline Phosphatase (45-117) U/L Total Creatine Kinase (26-192) U/L Total Protein (6.4-8.2) g/dL Albumin (3.4-5.0) g/dL Triglycerides (42-150) mg/dL Cholesterol (120-200) mg/dL LDL Cholesterol, Calc (0-99) mg/dL HDL Cholesterol (40.0-60.0) mg/dL Cholesterol/HDL Ratio Ratio TSH (0.358-3.740) uIU/mL Urine Color (Yellw/Straw) Urine Clarity (Clear) Urine pH (5.0-8.5) Ur Specific [place] (1.002-1.035) Urine Protein (Neg-Trace) mg/dL Urine Glucose (UA) (Negative) mg/dL Urine Ketones (Negative) mg/dL Urine Occult Blood (Negative) Urine Nitrate (Negative) Urine Bilirubin (Negative) Urine Urobilinogen (Less than 2) mg/dL Ur Leukocyte Esterase (Negative) Urine RBC (0-3) /hpf Urine WBC (0-5) /hpf Ur Squamous Epith Cells (0-5) /hpf Urine Bacteria (None) /hpf Urine Yeast (None) /hpf Micro UA Comment Urine Culture Comments Urine Opiates Screen (Neg) Ur Barbiturates Screen (Neg) Ur Amphetamines Screen (Neg) U Benzodiazepines Scrn (Neg) Urine Cocaine Screen (Neg) U Cannabinoids Screen (Neg) Serum Alcohol (0-5) mg/dL Discharge Plan Discharge Disposition Patient Disposition: 30 Still Patient Discharge Condition Condition: Stable Discharge Order Discharge Orders: Discharge Order (Routine); Ordered 01/14/18 Ordered By: Fei Carr Discharge Details Diagnosis: Encounter for medical clearance for patient hold Physicians Team ED Provider: Blessing Ann ED Midlevel Provider: Ana Soriano Primary Care Provider: Kirk Yan Attending Provider: Fei Carr Status ED Status: Left Department Discharge Information Discharge Date/Time: 01/13/18 20:26 Addendum entered and electronically signed by ISAIAS Wallis 01/12/18 18 :48: I was notified by the psychiatric nurse that the patient's heart rate was elevated and the patient appeared shaky. I talked to the patient she states that she normally gets Xanax 4 times daily, 1 mg. She denies history of alcohol abuse and states that she drinks alcohol rarely. However, she has been seen in the emergency department for alcohol intoxication and been on [facility] protocol. She does admit to getting intoxicated before coming to the emergency department. The patient was given Ativan 1 mg IM and Zofran 4 mg ODT. However , the patient remained tachycardic in the 140s and 150s. Therefore, I requested the patient be moved to medical bed. She was moved to my pod. Upon my exam, heart rate is varying between 110 and 130. She appears much more calm. Patient reports history of some sort of connective tissue disorder and states that she is prescribed Percocet. However, when I query E force, I do not see any recent prescriptions for Percocet. She does receive Xanax prescriptions. CMP, CK are ordered and pending. Patient is given normal saline 1 L IV bolus, thiamine 100 mg IV, Ativan 1 mg IV. EKG is ordered and pending. EKG shows sinus tachycardia, HR 121, with some diffuse t wave depression. My attending physician has reviewed the EKG. Patient remained tachycardic, 2nd liter Ns IV bolus is ordered. 1844 Patients HR is 130-150. She is given Ativan 2 mg IV. Upon further questioning, she states she was on metoprolol in the past, 25 mg. She does state that she has been tachycardic in the past and states that sometimes treating her anxiety and pain helps, but she has had metoprolol in the past. Will monitor. BRITTNY Marino, will monitor patient and review repeat labs. Addendum entered and electronically signed by BRITTNY Barron 01/12/18 20:05 : See previous notes. As above, the patient was noted to be cardiac during her hospital stay. She reports a history of sinus tachycardia, anxiety. She also is a frequent drinker. She reports that she was in the past on metoprolol 25 mg twice a day but it was stopped by her primary care physician 1 month ago. She also feels that her symptoms are being exacerbated by anxiety as well as back and neck pain which she has chronically and for which she typically takes Percocet 5 mg twice a day. She has not been able to take her Percocet today. She will be given a dose of her Percocet as well as metoprolol twice a day. She also takes Xanax on a regular basis. CIWA precautions have been initiated. Repeat blood work was obtained including a repeat CMP which was normal and CK which was normal. 2000: Upon reexamination her heart rate is 100. Her metoprolol 25 mg twice a day has been ordered. Benzodiazepines for withdrawal symptoms. She is medically cleared for psychiatric disposition.
[2018-01-12 04:37] LABS: Baso # (Auto) 0.1 th/mm3 (0.0-0.2); Baso % (Auto) 0.8 % (0.0-2.0); Eos # (Auto) 0.3 th/mm3 (0.0-0.4); Eos % (Auto) 4.2 % (0.0-4.0); Hematocrit 42.8 % (35.0-46.0); Hemoglobin 14.4 gm/dL (11.6-15.3); Lymph # (Auto) 3.2 th/mm3 (1.0-4.8); Lymph % (Auto) 42.4 % (9.0-44.0); Mean Corpuscular HGB Conc 33.7 % (32.0-36.0); Mean Corpuscular Hemoglobin 30.5 pg (27.0-34.0); Mean Corpuscular Volume 90.5 fL (80.0-100.0); Mean Platelet Volume 8.2 fL (7.0-11.0); Mono # (Auto) 0.4 th/mm3 (0.0-0.9); Mono % (Auto) 5.8 % (0.0-8.0); Neut # (Auto) 3.6 th/mm3 (1.8-7.7); Neut % (Auto) 46.8 % (16.0-70.0); Platelet Count 305 th/mm3 (150-450); Red Blood Count 4.73 mil/mm3 (4.00-5.30); Red Cell Distribution Width 13.2 % (11.6-17.2); White Blood Count 7.6 th/mm3 (4.0-11.0)
[2018-01-12 04:44] LABS: Amphetamine Screen,Urine Neg (Neg); Barbiturate Screen,Urine Pos (Neg); Cannabinoid Screen,Urine Neg (Neg); Cocaine Screen,Urine Neg (Neg)
[2018-01-12 04:48] LABS: Opiate Screen,Urine Neg (Neg)
[2018-01-12 04:52] LABS: Alanine Aminotransferase 28 U/L (10-53)
[2018-01-12 05:01] LABS: Alkaline Phosphatase 80 U/L (45-117); Total Protein 8.6 g/dL (6.4-8.2)
[2018-01-12 05:02] LABS: Albumin 4.4 g/dL (3.4-5.0); Anion Gap 13 meq/L (5-15); Aspartate Aminotransferase 15 U/L (15-37); Blood Urea Nitrogen 12 mg/dL (7-18); Calcium 9.5 mg/dL (8.5-10.1); Carbon Dioxide 19.8 meq/L (21.0-32.0); Chloride 109 meq/L (98-107); Glomerular Filtration Rate 72 mL/min (>89); Glucose,Random 89 mg/dL (74-106); Potassium 3.7 meq/L (3.5-5.1); Sodium 142 meq/L (136-145)
[2018-01-12 05:03] LABS: Alcohol 204 mg/dL (0-5)
[2018-01-12] MEDS ORDERED: Sod Chloride 0.9% Inj 1,000 ML IV.SIG ONE ×2 (16:26→17:58)
[2018-01-12] MEDS ORDERED: Thiamine Inj 100 MG in Sodium Chlor 0.9% Inj 100 ML IV.SIG ONE (16:46)
[2018-01-12 19:13] LABS: Alanine Aminotransferase 22 U/L (10-53); Albumin 3.9 g/dL (3.4-5.0); Alkaline Phosphatase 71 U/L (45-117); Anion Gap 12 meq/L (5-15); Aspartate Aminotransferase 21 U/L (15-37); Blood Urea Nitrogen 11 mg/dL (7-18); Calcium 8.7 mg/dL (8.5-10.1); Carbon Dioxide 20.4 meq/L (21.0-32.0); Chloride 110 meq/L (98-107); Creatine Kinase 142 U/L (26-192); Glomerular Filtration Rate Greater Than 89 mL/min (>89); Glucose,Random 74 mg/dL (74-106); Potassium 4.2 meq/L (3.5-5.1); Sodium 142 meq/L (136-145); Total Protein 7.3 g/dL (6.4-8.2)
[2018-01-12] MEDS: Metoprolol Tartrate 25 MG Tablet PO SCH (19:25)
[2018-01-12] MEDS ORDERED: Temazepam 15 MG Capsule PO STA (22:46)
[2018-01-13] MEDS: Metoprolol Tartrate 25 MG Tablet PO SCH ×2 (09:42→21:04)
[2018-01-13] MEDS: LORazepam 1 MG Tablet PO PRN (13:22)
[2018-01-13] MEDS ORDERED: Aluminum/Magnesium/Simethacone Susp 30 ML UDC PO PRN (15:03)
[2018-01-13] MEDS ORDERED: buPROPion 150 MG XL 24 HR Tablet PO SCH (15:15)
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
--- NOTE | 2018-01-13 18:20 | ECG ---
Date Performed: 01/12/2018 Time Performed: 17:17:22 PTAGE: 37 years EKG: SINUS TACHYCARDIA WITH SHORT [place] INTERVAL NONSPECIFIC ST & T-WAVE ABNORMALITY ABNORMAL ECG C ompared to PREVIOUS TRACING , nonspecific ST changes are more prominent, consider ischemia. PREVIOUS TRACIN06/03/2017 00.19 DOCTOR: Alistair Haddad Interpretating Date/Time 01/13/2018 18:18:37
[2018-01-13] MEDS ORDERED: Temazepam 15 MG Capsule PO SCH (21:00)
[2018-01-13] MEDS ORDERED: Non-Formulary Drug (Temazepam [Temazepam] 30 MG) PO SCH (21:00)
[2018-01-13] MEDS: lamoTRIgine 100 MG Tablet PO SCH (22:10)
[2018-01-13 22:52] LABS: Bacteria,Urine Moderate /hpf; Bilirubin,Urine Negative (Negative); Clarity,Urine Hazy (Clear); Color,Urine Red (Yellw/Straw); Glucose,Urine (UA) Negative (Negative); Leukocyte Esterase,Urine Large (Negative); Nitrite,Urine Negative (Negative); Specific Gravity,Urine 1.004 (1.002-1.035); Squamous Epithelial Cell,Urine 7 /hpf (0-5)
[2018-01-14] MEDS: LORazepam 1 MG Tablet PO PRN (01:50)
[2018-01-14] MEDS: Metoprolol Tartrate 25 MG Tablet PO SCH (08:24)
[2018-01-14] MEDS: lamoTRIgine 100 MG Tablet PO SCH (08:24)
[2018-01-14] MEDS ORDERED: buPROPion 150 MG 12 HR Tablet PO SCH (09:00)
[2018-01-14] MEDS ORDERED: Mirtazapine 15 MG Tablet PO SCH (09:00)
[2018-01-14] MEDS ORDERED: QUEtiapine 100 MG Tablet PO SCH (09:00)
[2018-01-14 09:52] LABS: Anion Gap 14 meq/L (5-15); Blood Urea Nitrogen 7 mg/dL (7-18); Calcium 9.1 mg/dL (8.5-10.1); Carbon Dioxide 22.1 meq/L (21.0-32.0); Chloride 105 meq/L (98-107); Cholesterol 179 mg/dL (120-200); Glomerular Filtration Rate Greater Than 89 mL/min (>89); Glucose,Random 61 mg/dL (74-106); HDL Cholesterol 61.7 mg/dL (40.0-60.0); LDL Cholesterol,Calculated 84 mg/dL (0-99); Potassium 3.3 meq/L (3.5-5.1); Sodium 141 meq/L (136-145); Triglycerides 168 mg/dL (42-150)
[2018-01-14 13:12] LABS: Hemoglobin A1c 4.9 % (4.3-6.0)
[2018-01-14] MEDS ORDERED: Aluminum/Magnesium/Simethacone Susp 30 ML UDC PO PRN (13:56)
[2018-01-14] MEDS ORDERED: Bisacodyl 10 MG Supp RECTAL PRN (13:56)
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
--- NOTE | 2018-01-14 14:30 | P.DSPSY ---
Psychiatry Discharge Summary Inpatient Psychiatric care?: Yes Advance Directives: No Mental Health Advance Directive: No Health Care Proxy: No - Admission Admission Date: January 13, 2018 15:03 - Admission Diagnosis (1) Adjustment disorder with mixed disturbance of emotions and conduct Code(s): F43.25 - Adjustment disorder with mixed disturbance of emotions and conduct (2) Alcohol abuse with intoxication Code(s): F10.129 - Alcohol abuse with intoxication, unspecified Brief History: Patient is a 37-year-old white female who initially comes here under Kimble act by the [employer] dated 01/12/2018 at 2:40 AM that document reviewed essentially states told both officers on seeing that she wanted to and admitted to not eating for days and at time because she was worried that if she ate something would report her to law enforcement. Patient was seen screen in the emergency department urine toxicology positive for barbiturates and benzodiazepines blood alcohol level of 304. Review of the EMR shows multiple prior contacts in the past most recently being hospitalized in May 2017 at that time her blood alcohol level was measured at 165 of interest on 12/07/2016 blood alcohol level of 325 and on 12/02/2016 blood alcohol level of 220. At that time patient was discharged on Seroquel 400 mg at bedtime Restoril 15 mg at bedtime Remeron 15 mg at bedtime lamotrigine 150 mg twice daily. Patient was referred to Dr. Grayson Parr was her private psychiatrist. At the present time patient sitting in her room calm cooperative medical student Amanda present throughout session chart is been reviewed in her EMR is been reviewed. Patient denies suicidality. Denies voices or visions. States she was having a severe depressive episode but when questioned about the details she became somewhat vague and ambivalent. Stating that she has stopped taking her Clozaril prescribed by Dr. Torres couple of weeks ago and was wanting to get back on it. She states there was some stress with her boyfriend moving back to [place] fairly recently. She states she lives by herself but has contact with her parents. She does have 3 cats in the house with her she is prescribed according to the med reconciliation both butalbital and oxycodone. She states she has good access to Dr. Juares was seen here weekly at times, she also has a therapist that she does see weekly. She does have a supply of her prescribed medications at home. At this time I feel patient does not meet Kimble act criteria. Patient does give a long convoluted history of multiple medical problems going back a number of years. She still at times appears somewhat somatic and perhaps somewhat manipulative. But in any event at this time she does not meet Kimble criteria I will lift Kimble act will allow patient to be discharged to herself with no Rx by me. She is to call Dr. Parr to make arrangements to restart her Clozaril. She should continue with the weekly counseling sessions. When I did attempt to discuss her alcohol misuse she minimized that denying that she is an alcoholic that she has an alcohol related problem. I suggested she discuss this more openly with her therapist also thus will be discharged today with no Rx by me Tobacco Use In Past 30 Days: No How Often Do You Have a Drink Containing Alcohol: Monthly or less Hospital Course: Please see brief history. Patient does not meet Kimble criteria. Patient denies suicidality homicidality voice or visions is able contract to do no harm. Patient is appropriate and adequate mental health services in the community setting Dr. Grayson Juares is her private psychiatrist and she has a private therapist that she sees weekly. Patient has grown medication at home the B no Rx by me she may follow through with Dr. Juares. Also would recommend absolute sobriety - Discharge Discharge Date: 01/14/18 - Discharge Diagnosis (1) Adjustment disorder with mixed disturbance of emotions and conduct Diagnosis: Principal Code(s): F43.25 - Adjustment disorder with mixed disturbance of emotions and conduct Status: Acute (2) Alcohol abuse with intoxication Diagnosis: Secondary Code(s): F10.129 - Alcohol abuse with intoxication, unspecified Status: Acute Discharge Disposition: Home - Discharge Instructions Discharge Diet: Regular Diet Activities You Can Perform: Regular- No Restrictions - Discharge Time > 30 minutes Mental Status Examination Appearance: Appropriate Consciousness: Alert Orientation: x4 Motor Activity: Normal gait Speech: Unremarkable Language: Adequate Fund of Knowledge: Adequate Attention and Concentration: Adequate Memory: Unremarkable Mood: Other (Euthymic to mildly dysphoric) Affect: Other Thought Process & Associations: Intact Thought Content: Appropriate Hallucination Type: None Delusion Type: None Suicidal Ideation: No (Patient denies) Suicidal Plan: No (Patient denies) Suicidal Intention: No (Patient denies) Homicidal Ideation: No Homicidal Plan: No Homicidal Intention: No Insight: Adequate Judgment: Adequate Discharge/Advance Care Plan - Results Vital Signs: Last Vital Signs Temp 99 F 01/14/18 06:00 Pulse 91 H 01/14/18 06:00 Resp 20 01/14/18 06:00 BP 133/80 01/14/18 06:00 Pulse Ox 96 01/14/18 06:00 Lab Results: Abnormal Lab Results 01/13/18 01/14/18 01/14/18 16:00 07:52 07:52 Sodium 141 Potassium 3.3 L D Chloride 105 Carbon Dioxide 22.1 Anion Gap 14 BUN 7 Creatinine 0.66 Estimated GFR Greater than 89 Random Glucose 61 L Hemoglobin A1c 4.9 Calcium 9.1 Triglycerides 168 H Cholesterol 179 LDL Cholesterol, Calc 84 HDL Cholesterol 61.7 H Cholesterol/HDL Ratio 2.90 Urine Color Red Urine Clarity Hazy H Urine pH 6.0 Ur Specific [place] 1.004 Urine Protein Negative Urine Glucose (UA) Negative Urine Ketones 20 Urine Occult Blood Small H Urine Nitrate Negative Urine Bilirubin Negative Urine Urobilinogen Less than 2 Ur Leukocyte Esterase Large H Urine RBC 9 H Urine WBC 14 H Ur Squamous Epith Cells 7 Urine Bacteria Moderate H Urine Yeast Few H Micro UA Comment Culture indicated Urine Culture Comments Culture indicated Laboratory Results Hemoglobin A1c 4.9 % (4.3-6.0) 01/14/18 07:52 Triglycerides 168 mg/dL (42-150) H 01/14/18 07:52 Cholesterol 179 mg/dL (120-200) 01/14/18 07:52 LDL Cholesterol, Calc 84 mg/dL (0-99) 01/14/18 07:52 HDL Cholesterol 61.7 mg/dL (40.0-60.0) H 01/14/18 07:52 TSH 1.080 uIU/mL (0.358-3.740) 01/12/18 04:00 Urine Culture Comments Culture indicated 01/13/18 16:00 Summary of Procedures: None done Pending Results: None - Medications Number of antipsychotic medications at discharge: 0 - Discharge Care Plan Goals to Promote Your Health: * To prevent worsening of your condition and complications * To maintain your health at the optimal level Directions to Meet Your Goals: Take your medications as prescribed Follow your dietary instruction Follow activity as directed Keep your appointments as scheduled Take your immunizations and boosters as scheduled If your symptoms worsen call your PCP, if no PCP go to Urgent Care Center or Emergency Room For 21/01 questions related to your inpatient stay or results of tests pending at discharge, please contact Dr. Fei Carr MD at Smoking is Dangerous to Your Health. Avoid second hand smoking
[2018-01-14] MEDS ORDERED: Senna/Docusate Sodium 8.6/50 MG Tablet PO SCH (21:00)
== END 2018-01-14 15:59 | disposition home or self-care (01) ==
LOC: NEPJ 03:10 → NEDA 01-13 15:03 → H260 01-13 19:53
PROVIDERS: ADMIT Psychiatry & Neurology Psychiatry; ATTEND Psychiatry & Neurology Psychiatry
DX: Y90.8 Blood alcohol level of 240 mg/100 ml or more; M54.9 Dorsalgia, unspecified; I10 Essential (primary) hypertension; Z62.810 Personal history of physical and sexual abuse in childhood; F41.9 Anxiety disorder, unspecified; M54.2 Cervicalgia; Z91.5 Personal history of self-harm; F43.25 Adjustment disorder with mixed disturbance of emotions and conduct; F10.129 Alcohol abuse with intoxication, unspecified; R00.0 Tachycardia, unspecified